=== PATIENT | female | born 1950 | race Caucasian/White ===

== ENCOUNTER 2020-03-02 17:22 | Emergency (ER) | payer MEDICARE, OTHER, SELFPAY ==
[2020-03-02 17:40] VITALS: BP 119/56; PULSE 86; RESP 16; TEMP 36.8; O2SAT 97
--- NOTE | 2020-03-02 17:53 | ED.UPPEXIN ---
HPI - Extremity Injury (Upper) General Chief Complaint: Extremity Injury, Upper Stated Complaint: swollen left hand Time Seen by Provider: 03/02/20 17:44 Source: patient and RN notes reviewed Mode of arrival: ambulatory Limitations: no limitations History of Present Illness HPI narrative: Patient presents today complaining of edema and pain to her left hand as well as pain to her right hand x4 days. Pain is primarily in the fingers and wrist. Patient has history of rheumatoid arthritis, lymphedema in the left arm. She has been applying ice, taking Tylenol and [place] without relief. 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 Denies numbness or tingling in the hands, fingers, or arms. Related Data Allergies Allergy/AdvReac Type Severity Reaction Status Date / Time No Known Allergies Allergy Verified 03/02/20 17:46 Review of Systems Review of Systems: Narrative: CONSTITUTIONAL: Denies body aches, fever, chills, or sweats. EYES: Denies visual changes, redness, or discharge. ENT: Denies rhinorrhea, congestion, sore throat, or otalgia. CARDIOVASCULAR: Denies chest pain, palpitations, or edema. RESPIRATORY: Denies cough or dyspnea. GASTROINTESTINAL: Denies abdominal pain, nausea, vomiting, or diarrhea. GENITOURINARY: Denies dysuria or hematuria. SKIN: Denies rash, itching, or wounds. MUSCULOSKELETAL: Denies back pain. + In the right hand, pain and edema to left hand NEUROLOGIC: Denies headache, numbness, tingling, or weakness. PSYCH: Denies depression or anxiety. [facility] Past Medical History Medical History (Updated 03/02/20 @ 18:00 by Falguni Richards, [facility], ) Bipolar disorder Bladder spasms Dry eye Hypercholesterolemia Hypertension Hypothyroidism Lymphedema Rheumatoid arthritis Social History Social History Gender identity (if verbalized by the patient): Female Comments At time of signature, I have reviewed and agree with nursing past medical, surgical, social and family history unless otherwise noted. Please see nursing chart for further information. There is no relevant family history pertinent to the presenting complaint Exam Narrative: Exam Narrative: GENERAL: Well-appearing, well-nourished, and in no acute distress. HEAD: Normocephalic, atraumatic. EYES: EOMI. No redness or drainage. Conjunctivae normal. ENT: Mucous membranes pink and moist. NECK: Normal AROM. CHEST: No respiratory distress. EXTREMITIES: Right hand: tenderness to fingers 2-5 with scant edema and erythema to dorsum of hand. Left hand: 2+ pitting edema to hand with some mild edema. Tenderness to fingers 2-5. Sensation intact. Capillary refill normal. Radial pulses normal. Full AROM of both wrist and all fingers. SKIN: Warm, dry, no rash. Capillary refill normal. Normal skin turgor. NEURO: No focal deficits. Alert and oriented x3. Gait steady. PSYCH: Normal affect. No signs of depression or anxiety. Course Vital Signs Vital signs: Vital Signs Temperature 98.3 F 03/02/20 17:40 Pulse Rate 86 03/02/20 17:40 Respiratory Rate 16 03/02/20 17:40 Blood Pressure 119/56 L 03/02/20 17:40 Pulse Oximetry 97 03/02/20 17:40 Temperature 98.3 F 03/02/20 17:40 Pulse Rate 86 03/02/20 17:40 Respiratory Rate 16 03/02/20 17:40 Blood Pressure 119/56 L 03/02/20 17:40 Pulse Oximetry 97 03/02/20 17:40 Reviewed MDM - Extremity Injury (Upper) Differential Diagnosis Differential diagnosis: Likely other (peripheral edema, gout, RA flare, osteoarthritis, lymphedema.) Critical Care Time Critical Care Time Critical Care Time: No Discharge Plan Discharge Clinical Impression: Rheumatoid arthritis flare, Edema of hand Patient Disposition: Home, Self-Care Condition: Stable Instructions: Rheumatoid Arthritis (ED) Additional Instructions: Your symptoms are likely due to a flare of your rheumatoid arthritis. Please continue all of your home meds. Please take the prednisone as directed. F
== END 2020-03-02 18:00 | disposition home or self-care (01) ==
PROVIDERS: Emergency Provider Nurse Practitioner; PCP Internal Medicine Rheumatology
DX: M06.9 Rheumatoid arthritis, unspecified (principal); R60.9 Edema, unspecified; F31.9 Bipolar disorder, unspecified; N32.89 Other specified disorders of bladder; E03.9 Hypothyroidism, unspecified; I10 Essential (primary) hypertension; E78.00 Pure hypercholesterolemia, unspecified
CPT/HCPCS: 99203; G0463

== ENCOUNTER 2020-07-08 11:41 | Emergency (ER) | payer MEDICARE, OTHER, SELFPAY ==
--- NOTE | ~2020-07-08 | XR_ITS ---
XR finger 5th RT min 2V DATE: 07/08/2020 12:33 INDICATION: Fall. Fifth digit bruising. History of rheumatoid arthritis. TECHNIQUE: 4 views COMPARISON: None FINDINGS: The examination is limited due to nonstandard positioning, with flexion of the digits on al l views, resulting in superimposition of the phalanges on all but the lateral view. There is also ove rpenetration, particularly on the lateral view. There is a very subtle virtually nondisplaced linear intra-articular oblique fracture through the bas e, metaphysis and proximal shaft of the proximal phalanx. No other apparent fracture or dislocation. There is diffuse osteopenia. IMPRESSION: Linear oblique nondisplaced intra-articular fracture of the base, metaphysis and proximal shaft of the proximal phalanx Diffuse osteopenia Reviewed, dictated and finalized at location A. IMPRESSION: Linear oblique nondisplaced intra-articular fracture of the base, m etaphysis and proximal shaft of the proximal phalanx Diffuse osteopenia
--- NOTE | ~2020-07-08 | XR_ITS ---
XR hand RT min 3V DATE: 07/08/2020 12:09 INDICATION: Fall. Bruising to the fifth digit TECHNIQUE: 3 views COMPARISON: None FINDINGS: There is nonstandard positioning with some flexion of the digits on all views, with superim position of phalanges, resulting in incomplete evaluation. If there is concern for digit fracture, re commend dedicated radiographic examination of that digit, including AP, lateral and oblique views, wi th standard positioning. Diffuse osteopenia. There is narrowing at the radiocarpal joint. No chondrocalcinosis or erosive change is evident. No ap parent fracture or dislocation is detected. IMPRESSION: Narrowing at the radiocarpal joint Diffuse osteopenia No apparent fracture or dislocation; limited evaluation Reviewed, dictated and finalized at location A.
[2020-07-08 11:57] VITALS: BP 148/86; PULSE 73; RESP 18; TEMP 36.7; O2SAT 98
--- NOTE | 2020-07-08 12:15 | ED.UPPEXIN ---
HPI - Extremity Injury (Upper) General Chief Complaint: Extremity Injury, Upper Stated Complaint: right hand injury fell Time Seen by Provider: 07/08/20 12:15 Source: patient and RN notes reviewed Mode of arrival: ambulatory Limitations: no limitations History of Present Illness HPI narrative: 70-year-old female who presents to [facility] care with complaints of tripping over a rug at home and experiencing a fall morning at 0300. Patient states she has had bilateral total knee replacements and has a history of rheumatoid arthritis, had to call EMS for assistance getting up off of floor. Patient has noted pain to right 5th finger with bruising and swelling, has some contracture distal aspect of that finger from her rheumatoid arthritis. Patient also has bruising to the right dorsal hand and also to right upper lateral arm and right hip region with no acute discomfort verbalized to these sites. MD complaint: injury to: right, hand and finger (5th finger) Onset (ago): hour(s) (33 hours ago) Other Extremity Injury: Right: fingers (right 5th finger with bruising and swelling), hand (bruising to right dorsal hand) and arm (upper right arm bruising) Other injuries: RLE (right hip bruise) Handedness: right Place: home Severity: moderate Exacerbating factors: movement of extremity Context: fall Associated symptoms: denies other symptoms Related Data Home Medications Medication Instructions Recorded Confirmed atorvastatin [Lipitor] 20 mg PO DAILY 03/02/20 07/08/20 citalopram [Celexa] 20 mg PO DAILY 03/02/20 07/08/20 cyclosporine [Restasis] 1 drp OPHTHALMIC (EYE) Q12H 03/02/20 07/08/20 diclofenac sodium 75 mg PO BID 03/02/20 07/08/20 divalproex [Depakote ER] 500 mg PO BID 03/02/20 07/08/20 folic acid 1 mg PO DAILY 03/02/20 07/08/20 levothyroxine 100 mcg PO DAILY 03/02/20 07/08/20 lisinopril [Zestril] 2.5 mg PO DAILY 03/02/20 07/08/20 methotrexate sodium 17.5 mg PO WEEKLY 03/02/20 07/08/20 oxybutynin chloride 5 mg PO BID 03/02/20 07/08/20 risperidone [Risperdal] 0.5 mg PO DAILY 03/02/20 07/08/20 torsemide 5 mg PO DAILY 03/02/20 07/08/20 methotrexate sodium 2.5 mg PO DIRECTED 07/08/20 07/08/20 propranolol 60 mg PO DAILY 07/08/20 07/08/20 Allergies Allergy/AdvReac Type Severity Reaction Status Date / Time ciprofloxacin Allergy Mild UPSET Verified 07/08/20 11:52 STOMACH amoxicillin Allergy Unknown Dyspnea / Verified 07/08/20 11:52 SOB Review of Systems Review of Systems: Narrative: CONSTITUTIONAL: Denies fever, chills, or sweats. EYES: Denies visual changes, redness, or discharge. ENT: Denies rhinorrhea, congestion, sore throat, or otalgia. CARDIOVASCULAR: Denies chest pain, palpitations, or edema. RESPIRATORY: Denies cough or dyspnea. GASTROINTESTINAL: Denies abdominal pain, nausea, vomiting, or diarrhea. GENITOURINARY: Denies dysuria or hematuria. SKIN: Denies rash or itching. MUSCULOSKELETAL: Denies back pain, positive for acute pain to the proximal region of her right 5th finger with noted swelling and bruising, some aching to soft tissue right upper arm and right hip area with no acute pain at these areas. NEUROLOGIC: Denies headache, numbness, or weakness. PSYCHIATRIC: positive history anxiety or depression. All systems reviewed & are unremarkable except as noted in HPI and below PMFSH Past Medical History Medical History (Updated 07/09/20 @ 00:00 by Background Daemon) Bipolar disorder Bladder spasms Dry eye Hypercholesterolemia Hypertension Hypothyroidism Lymphedema Rheumatoid arthritis Surgical History Surgical History H/O: hysterectomy History of bilateral knee replacement History of carpal tunnel release History of total left hip replacement Family History Family History Father Heart disease Social History Social History (Updated 07/11/20 @ 14:16 by Eliane Neff NP) Smoking status
== END 2020-07-08 13:20 | disposition home or self-care (01) ==
PROVIDERS: Emergency Provider Registered Nurse
DX: S62.646A Nondisplaced fracture of proximal phalanx of right little finger, initial encounter for closed fracture (principal); W18.09XA Striking against other object with subsequent fall, initial encounter; M06.9 Rheumatoid arthritis, unspecified; Z87.891 Personal history of nicotine dependence; Z96.653 Presence of artificial knee joint, bilateral; Z96.642 Presence of left artificial hip joint; E78.00 Pure hypercholesterolemia, unspecified; I10 Essential (primary) hypertension; E03.9 Hypothyroidism, unspecified; F31.9 Bipolar disorder, unspecified
CPT/HCPCS: 29130; 73130; 73140; 99214; G0463

== ENCOUNTER 2022-03-16 14:35 | Emergency (ER) | payer MEDICARE, OTHER, SELFPAY ==
[2022-03-16 14:48] VITALS: BP 140/71; PULSE 68; RESP 18; TEMP 36.5; O2SAT 98
--- NOTE | 2022-03-16 15:02 | ED.URI ---
HPI - URI/Sore Throat General Chief Complaint: Upper Respiratory Infection Stated Complaint: Stuffy Nose,Chills,Body Aches Time Seen by Provider: 03/16/22 15:02 Source: patient, RN notes reviewed and old records reviewed Mode of arrival: ambulatory Limitations: no limitations History of Present Illness HPI Narrative: 71-year-old female presents to express care with complaints of 1 day history of chills, body aches, 100 ?F temperature with stuffy nose and dry cough and fatigue. Patient had no complaints of nausea and vomiting or diarrhea states her appetite is fair and is drinking fluids well. Patient denies any shortness of breath no tachypnea noted lungs are clear to auscultation with SAO2 98% on room air. ptient reports that she has had a dry cough and she has a stuffy nose and some fatigue Patient reports that she got a flu shot in October and she had Moderna Covid Booster about 1 month ago. MD elicited complaint: fever, cough and other (chills,body aches,stuffy nose) Pertinent past history: immunosuppression (Rheumatoid arthritis) Onset (ago): day(s) Consistency: constant Description of mucous: clear Able to tolerate fluids by mouth: Yes Exacerbating factors: exertion Related Data Home Medications Medication Instructions Recorded Confirmed atorvastatin [Lipitor] 40 mg PO DAILY 03/02/20 03/16/22 citalopram [Celexa] 20 mg PO DAILY 03/02/20 03/16/22 cyclosporine [Restasis] 1 drp OPHTHALMIC (EYE) Q12H 03/02/20 03/16/22 diclofenac sodium 75 mg PO BID 03/02/20 03/16/22 divalproex [Depakote ER] 500 mg PO BID 03/02/20 03/16/22 folic acid 1 mg PO DAILY 03/02/20 03/16/22 levothyroxine 100 mcg PO DAILY 03/02/20 03/16/22 lisinopril [Zestril] 2.5 mg PO DAILY 03/02/20 03/16/22 methotrexate sodium 17.5 mg PO WEEKLY 03/02/20 03/16/22 oxybutynin chloride 5 mg PO BID 03/02/20 03/16/22 risperidone [Risperdal] 0.5 mg PO DAILY 03/02/20 03/16/22 torsemide 5 mg PO DAILY 03/02/20 03/16/22 latanoprost 1 drp EACH EYE HS 03/16/22 03/16/22 Allergies Allergy/AdvReac Type Severity Reaction Status Date / Time amoxicillin Allergy Intermediate Dyspnea / Verified 03/16/22 14:39 SOB ciprofloxacin Allergy Mild UPSET Verified 03/16/22 14:39 STOMACH Review of Systems Review of Systems: CONSTITUTIONAL: Positive for fever up to 100F yesterday, chills, or sweats. EYES: Denies visual changes, redness, or discharge. ENT: Denies rhinorrhea, congestion, sore throat, or otalgia. CARDIOVASCULAR: Denies chest pain, palpitations, or edema. RESPIRATORY: Positive for cough denies any acute dyspnea. GASTROINTESTINAL: Denies abdominal pain, nausea, vomiting, or diarrhea. GENITOURINARY: Denies dysuria or hematuria. SKIN: Denies rash or itching. MUSCULOSKELETAL: Denies back pain, joint pain, body aches NEUROLOGIC: Positive for headache, numbness, or weakness. PSYCHIATRIC: Positive for anxiety or depression. All systems reviewed & are unremarkable except as noted in HPI and below PMFSH Past Medical History Medical History (Updated 03/16/22 @ 15:27 by Eliane Neff NP) Bipolar disorder Bladder spasms Dry eye Hypercholesterolemia Hypertension Hypothyroidism Lymphedema Rheumatoid arthritis Surgical History Surgical History H/O: hysterectomy History of bilateral knee replacement History of carpal tunnel release History of total left hip replacement Family History Family History Father Heart disease Social History Social History (Updated 07/11/20 @ 14:16 by Eliane Neff NP) Smoking status: Former smoker Smoking end date: 10/28/91 Gender identity (if verbalized by the patient): Female Exam Narrative: GENERAL: Well-appearing, well-nourished, and in no acute distress. HEAD: Normocephalic, atraumatic. EYES: PERRLA and EOMI. ENT: Nares red with clear rhinorrhea no epistaxis. Mucous membranes moist. TMs normal with good l
== END 2022-03-16 15:30 | disposition home or self-care (01) ==
PROVIDERS: Emergency Provider Registered Nurse; PCP Internal Medicine
DX: U07.1 COVID-19 (principal); M06.9 Rheumatoid arthritis, unspecified; E78.00 Pure hypercholesterolemia, unspecified; I10 Essential (primary) hypertension; E03.9 Hypothyroidism, unspecified; Z96.653 Presence of artificial knee joint, bilateral; Z96.641 Presence of right artificial hip joint; Z87.891 Personal history of nicotine dependence; F31.9 Bipolar disorder, unspecified
CPT/HCPCS: 87426; 87804; 99213; C9803; G0463

== ENCOUNTER 2022-03-31 18:11 | Emergency (ER) | payer MEDICARE, OTHER, SELFPAY ==
--- NOTE | ~2022-03-31 | CT_ITS ---
EXAMINATION: CT lumbar spine wo con DATE: 03/31/2022 20:40 INDICATION: FALL. LOWER BACK PAIN. . TECHNIQUE: Computed tomography (CT) of the thoracic spine was performed without intravenous contrast. The dose-length product was 1203.59 mGy-cm. COMPARISON: None. FINDINGS: The last fully formed disc space will be designated L5-S1. There are 6 nonrib-bearing lumba r-type vertebral bodies which may be due to hypoplastic ribs at T12 or the sixth lumbar vertebral bod y. Pedicles are intact. Partial sacralization on the right at L5, with pseudarthrosis. Normal vertebr al body alignment. Vertebral body heights preserved. Multilevel severe degenerative disc disease. Mul tilevel severe bilateral neural foraminal narrowing. Severe central canal narrowing at L3-4. Multilev el facet arthropathy. IMPRESSION: 1. No acute fracture or traumatic malalignment in the lumbar spine Reviewed, dictated and finalized at location K.
--- NOTE | ~2022-03-31 | CT_ITS ---
EXAMINATION: CT cervical spine wo con DATE: 03/31/2022 20:40 INDICATION: FALL. POSTERIOR NECK PAIN. TECHNIQUE: Computed tomography (CT) of the cervical spine was performed without intravenous contrast. Automated exposure control and iterative reconstruction technique were employed. The dose-length pro duct was 435.16 mGy-cm. COMPARISON: None FINDINGS: Counting reference: Craniocervical, junction. There are seven cervical type vertebral bodies. Anatomic Variants: None.. Vertebral Body Alignment: Intact. Reversal of the normal cervical lordosis. Craniocervical junction: Moderate degenerative change. Alignment intact. Osseous structures/fracture: No evidence of a lytic or blastic process in the visualized spine. N o evidence of acute fracture. Small left and trace right mastoid effusions without evidence of tempor al bone fracture. Cervical soft tissues: The paraspinal soft tissues planes are maintained. Degenerative changes: No significant degenerative changes. IMPRESSION: No acute fracture or traumatic malalignment in the cervical spine. Reviewed, dictated and finalized at location K.
--- NOTE | ~2022-03-31 | XR_ITS ---
EXAM: XR hip RT 2V w AP pelvis DATE: 03/31/2022 20:25 HISTORY: right hip pain, fall . COMPARISON: None available. FINDINGS: Decreased mineralization. No fracture or dislocation. No lytic or blastic lesion. Degenera tive lumbar SI joint and right hip changes. Right-sided L5 sacralization with pseudoarthrosis. Superi or migration of the femoral head arthroplasty component, with surrounding heterotopic bone. No erosio n or periosteal change. Soft tissues within normal limits. IMPRESSION: No acute fracture in the pelvis or right hip. Significant liner wear in the left hip arthroplasty. Reviewed, dictated and finalized at location K.
--- NOTE | ~2022-03-31 | CT_ITS ---
EXAMINATION: CT brain wo con DATE: 03/31/2022 20:39 INDICATION: FALL. HIT BACK OF HEAD. POSTERIOR HEAD PAIN. . TECHNIQUE: Computed tomography (CT) of the head was performed without intravenous contrast. The mA wa s adjusted according to patient size. Iterative reconstruction technique was employed. The dose-lengt h product was 605.33 mGy-cm. COMPARISON: None FINDINGS: No acute intracranial hemorrhage or extra-axial fluid collection. No hydrocephalus, mass, or herniation. No acute ischemic infarct. Unremarkable dural venous sinus attenuation. No acute osseous abnormality. Left mastoid effusion, without evidence of temporal bone fracture. Aerated secretions in the sphenoid sinus, otherwise the aerated spaces are clear. Mild atrophy and chronic white matter change. Mild atherosclerotic calcifications. Bilateral lens rep lacements. IMPRESSION: No acute intracranial process. Reviewed, dictated and finalized at location K.
--- NOTE | 2022-03-31 18:12 | PC.NURSE ---
, neighbor . can call for a ride.
[2022-03-31 18:14] VITALS: BP 137/108; PULSE 71; RESP 18; TEMP 36.2; O2SAT 96
[2022-03-31 19:50] VITALS: BP 130/109; PULSE 70; RESP 20; TEMP 36.4; O2SAT 100
--- NOTE | 2022-03-31 20:16 | ED.FALL ---
HPI - Fall General Chief Complaint: Fall Stated Complaint: fall, struck head Time Seen by Provider: 03/31/22 19:34 Source: patient Mode of arrival: ambulatory Limitations: no limitations History of Present Illness HPI Narrative: This is a 71 year old female that presents to the ER after a fall today with head injury. Reports she was walking up her front steps with her hands fall. She lost her balance and fell backwards and hit her head. She did not lose consciousness. Reports since she has had neck pain and low back pain. Also reports right hip pain. Denies prodromal symptoms, vision changes, vomiting, numbness, or weakness. Related Data Home Medications Medication Instructions Recorded Confirmed atorvastatin 20 mg tablet (Lipitor) 40 mg PO DAILY 03/02/20 03/16/22 citalopram 20 mg tablet (Celexa) 20 mg PO DAILY 03/02/20 03/16/22 cyclosporine 0.05 % eye drops in a 1 drp ophthalmic (eye) Q12H 03/02/20 03/16/22 dropperette (Restasis) diclofenac sodium 75 mg 75 mg PO BID 03/02/20 03/16/22 tablet,delayed release divalproex 250 mg tablet,extended 500 mg PO BID 03/02/20 03/16/22 release 24 hr (Depakote ER) folic acid 1 mg tablet 1 mg PO DAILY 03/02/20 03/16/22 levothyroxine 100 mcg tablet 100 mcg PO DAILY 03/02/20 03/16/22 lisinopril 2.5 mg tablet (Zestril) 2.5 mg PO DAILY 03/02/20 03/16/22 methotrexate sodium 2.5 mg tablet 17.5 mg PO WEEKLY 03/02/20 03/16/22 oxybutynin chloride 5 mg tablet 5 mg PO BID 03/02/20 03/16/22 risperidone 0.5 mg tablet 0.5 mg PO DAILY 03/02/20 03/16/22 (Risperdal) torsemide 10 mg tablet 5 mg PO DAILY 03/02/20 03/16/22 latanoprost 0.005 % eye drops 1 drp EACH EYE HS 03/16/22 03/16/22 Allergies Allergy/AdvReac Type Severity Reaction Status Date / Time amoxicillin Allergy Intermediate Dyspnea / Verified 03/31/22 19:50 SOB ciprofloxacin Allergy Mild UPSET Verified 03/31/22 19:50 STOMACH Review of Systems Review of Systems: CONSTITUTIONAL: Denies fever EYES: Denies visual changes GASTROINTESTINAL: Denies vomiting MUSCULOSKELETAL: Reports back pain, joint pain, and myalgia. NEUROLOGIC: Denies numbness, or weakness. All systems reviewed & are unremarkable except as noted in HPI and below PMFSH Past Medical History Medical History (Updated 03/31/22 @ 21:47 by Sherrie Razo PA-C) Bipolar disorder Bladder spasms Dry eye Hypercholesterolemia Hypertension Hypothyroidism Lymphedema Rheumatoid arthritis Surgical History Surgical History H/O: hysterectomy History of bilateral knee replacement History of carpal tunnel release History of total left hip replacement Family History Family History Father Heart disease Social History Social History (Updated 07/11/20 @ 14:16 by Eliane Neff NP) Smoking status: Former smoker Smoking end date: 10/28/91 Gender identity (if verbalized by the patient): Female Exam Narrative: GENERAL: Well-appearing, well-nourished, and in no acute distress. HEAD: Normocephalic, atraumatic. EYES: PERRLA and EOMI. ENT: Nares clear, no rhinorrhea or epistaxis. Mucous membranes moist. Oropharynx without tonsillar hypertrophy exudate or other lesions. Bilateral TMs pearly mosley non-bulging NECK: Supple. No adenopathy or masses. Tender to palpation of midline cervical spine CHEST: Clear to auscultation. No respiratory distress. No wheezes rales or rhonchi HEART: Regular rate and rhythm. No murmur heard. Normal peripheral pulses. BACK: No midline thoracic spine tenderness. Tender to palpation of midline lumbar spine EXTREMITIES: Normal range of motion. No edema or obvious deformity SKIN: Warm, dry, no rash. NEURO: No focal deficits. Alert and oriented x3. Cranial nerves II through XII grossly intact. Normal gait PSYCH: Normal mood and affect Course Vital Signs Vital signs: Vital Signs Temperature 97.2 F L
--- NOTE | 2022-03-31 20:23 | PC.NURSE ---
Patient taken to radiology via w/c.
[2022-03-31 21:58] VITALS: BP 145/77; PULSE 71; RESP 18; TEMP 36.6; O2SAT 96
== END 2022-03-31 22:00 | disposition home or self-care (01) ==
PROVIDERS: Emergency Provider Emergency Medicine
DX: S09.90XA Unspecified injury of head, initial encounter (principal); S19.9XXA Unspecified injury of neck, initial encounter; S39.92XA Unspecified injury of lower back, initial encounter; S79.911A Unspecified injury of right hip, initial encounter; N32.89 Other specified disorders of bladder; E78.00 Pure hypercholesterolemia, unspecified; I10 Essential (primary) hypertension; E03.9 Hypothyroidism, unspecified; M06.9 Rheumatoid arthritis, unspecified; Z96.642 Presence of left artificial hip joint; Z96.653 Presence of artificial knee joint, bilateral; Z87.891 Personal history of nicotine dependence; W10.9XXA Fall (on) (from) unspecified stairs and steps, initial encounter
CPT/HCPCS: 70450; 72125; 72131; 73502; 99284

== ENCOUNTER 2024-10-24 14:35 | Emergency (ER) | payer MEDICARE, OTHER, SELFPAY ==
[2024-10-24 15:10] VITALS: BP 133/97; PULSE 79; RESP 18; TEMP 36.9; O2SAT 95
--- NOTE | 2024-10-24 15:35 | ED_ITS ---
HPI - URI/Sore Throat General Chief Complaint: Upper Respiratory Infection Stated Complaint: Flu like symptoms Time Seen by Provider: 10/24/24 15:35 Source: patient, RN notes reviewed and old records reviewed Mode of arrival: ambulatory Limitations: no limitations History of Present Illness HPI Narrative: 74-year-old female presents to [facility] with complaints of body aches, sore throat, left ear discomfort, low-grade fevers 100.4. States that she has taken Tylenol. Patient states symptoms started on , 2 days ago Related Data Home Medications ?Medication ?Instructions ?Recorded ?Confirmed ?Last Taken ?Type atorvastatin 20 mg tablet (Lipitor) 40 mg PO DAILY 03/02/20 03/16/22 Unknown History citalopram 20 mg tablet (Celexa) 20 mg PO DAILY 03/02/20 03/16/22 Unknown History cyclosporine 0.05 % eye drops in a 1 drp ophthalmic (eye) Q12H 03/02/20 03/16/22 Unknown History dropperette (Restasis) diclofenac sodium 75 mg 75 mg PO BID 03/02/20 03/16/22 Unknown History tablet,delayed release divalproex 250 mg tablet,extended 500 mg PO BID 03/02/20 03/16/22 Unknown History release 24 hr (Depakote ER) folic acid 1 mg tablet 1 mg PO DAILY 03/02/20 03/16/22 Unknown History levothyroxine 100 mcg tablet 100 mcg PO DAILY 03/02/20 03/16/22 Unknown History lisinopril 2.5 mg tablet (Zestril) 2.5 mg PO DAILY 03/02/20 03/16/22 Unknown History methotrexate sodium 2.5 mg tablet 17.5 mg PO WEEKLY 03/02/20 03/16/22 Unknown History oxybutynin chloride 5 mg tablet 5 mg PO BID 03/02/20 03/16/22 Unknown History risperidone 0.5 mg tablet 0.5 mg PO DAILY 03/02/20 03/16/22 Unknown History (Risperdal) torsemide 10 mg tablet 5 mg PO DAILY 03/02/20 03/16/22 Unknown History latanoprost 0.005 % eye drops 1 drp EACH EYE HS 03/16/22 03/16/22 Unknown History Allergies Allergy/AdvReac Type Severity Reaction Status Date / Time amoxicillin Allergy Intermediate Dyspnea / Verified 10/24/24 15:14 SOB ciprofloxacin AdvReac Intermediate Gastrointestinal Verified 10/24/24 15:14 Upset Review of Systems Review of Systems: All systems reviewed & are unremarkable except as noted in HPI and below Constitutional: Constitutional: Reports as per HPI, Reports body ache(s), Reports chills, Reports fatigue and Reports fever(s) ENT: Reports as per HPI and Reports sore throat Cardiovascular: Cardiovascular: Reports no additional cardiovascular complaints, Denies chest pain and Denies dyspnea Respiratory: Respiratory: Reports no additional respiratory complaints, Denies chest congestion, Denies cough and Denies dyspnea Musculoskeletal: Musculoskeletal: Reports no additional musculoskeletal complaints Integumentary/Breasts: Skin/Breast: Reports system reviewed and no additional complaints, except as docu PMFSH Past Medical History Medical History Dry eye Bladder spasms Hypertension Hypercholesterolemia Bipolar disorder Lymphedema Hypothyroidism Rheumatoid arthritis Surgical History Surgical History H/O: hysterectomy History of bilateral knee replacement History of total left hip replacement History of carpal tunnel release Family History Family History Father Heart disease Social History Social History Smoking status: Former smoker Smoking end date: 10/28/91 Living arrangements: alone Occupation/Education: retired Gender identity (if verbalized by the patient): Female Comments At the time of my signature, I reviewed and agree with the nursing past medical, surgical, social, and family history. There is no relevant family history pertinent to the patient complaint. Exam Const: General: cooperative, no acute distress, well developed, alert, uncomfortable and well nourished Nutritional Appearance: well nourished Orientation/consciousness: patient oriented x3 Limitations: no limitations HENMT: Head: normal to inspection Ears: hearing grossly normal bilaterally, external ears normal, TM's normal bilaterally, EAC's normal, mastoids normal and no periauricular adenopathy Mouth: Yes Normal oral and palatal mucosa present, Yes lip normal, Yes tongue normal and Yes moist mucous membranes Throat: posterior oropharynx normal, uvula midline and no uvular edema Eyes: General: appearance normal, both eyes and all related structures Alignment and Position: alignment normal Neck: Neck: normal visual inspection, full ROM, no lymphadenopathy and no meningeal signs Chest: Chest palpation & inspection: normal inspection of the chest Resp: Effort & Inspection: normal respiratory effort and able to speak in complete sentences Auscultation: clear to auscultation bilaterally, no crackles, no rales, no rhonchi and no wheezes Cardio: Rate: regular rate Skin: General skin exam: normal color and no rashes or lesions noted Neuro: General: patient oriented x3, gait normal, moves all extremities and no meningeal signs Cognition (Neuro): normal cognition Speech: normal speech Gait exam (Neuro): Normal gait present Extrem: General: normal to inspection, full ROM, capillary refill normal and normal gait Psych: Appearance: grossly normal and well kempt Mental Status: mental status grossly normal Speech and movement: Normal speech and movement present and Clear speech present Affect: normal affect Attitude: cooperative Course Course Level of Care: Express Care Visit Vital Signs Vital signs: Vital Signs Temperature 98.5 F 10/24/24 15:10 Pulse Rate 79 10/24/24 15:10 Respiratory Rate 18 10/24/24 15:10 Blood Pressure 133/97 H 10/24/24 15:10 Pulse Oximetry 95 10/24/24 15:10 Oxygen Delivery Room Air 10/24/24 15:10 Temperature 98.5 F 10/24/24 15:10 Pulse Rate 79 10/24/24 15:10 Respiratory Rate 18 10/24/24 15:10 Blood Pressure 133/97 H 10/24/24 15:10 Pulse Oximetry 95 10/24/24 15:10 Oxygen Delivery Room Air 10/24/24 15:10 Reviewed MDM - URI/Sore Throat MDM Narrative Medical decision making narrative: Patient sitting in exam room. Nontoxic, vitals stable. Patient presents for URI symptoms x2 days Patient COVID positive Patient appropriate for outpatient treatment and follow-up Discharge instructions reviewed with patient, as well as provided in writing per nursing staff. The instructions also include specific and strict return/GO TO THE ER as well as f/u information. All questions have been answered, and the patient deny any further questions with discharge and discharge plan. Some parts of this dictation were generated by voice recognition software and may contain typographical and/or grammatical inaccuracies. Differential Diagnosis Differential diagnosis: Likely upper respiratory infection, otitis media, sinusitis, viral infection, bronchitis and influenza Lab Data Labs: Lab Results 10/24/24 Range/Units 15:35 POC Influenza A Ag Negative (Negative) POC Influenza B Ag Negative (Negative) POC SARS CoV-2 Ag Positive (Negative) Reviewed Critical Care Time Critical Care Time Critical Care Time: No Discharge Plan Discharge Clinical Impression: COVID-19 Patient Disposition: Home, Self-Care Condition: Stable Instructions: Antibiotic Form, COVID-19 (Coronavirus Disease 2019) (ED), COVID- 19 and Chronic Health Conditions (ED) Additional Instructions: Your rapid COVID test your in clinic was positive Your rapid flu test was negative Your symptoms are due to a viral illness, which is not treated with antibiotics. Typically viral infections last 7-10 days, can linger for couple of weeks. It is very important to treat your symptoms. Drink plenty of water, Gatorade, Pedialyte, ice pops or Jell-O. Use your albuterol inhaler as needed for shortness of breath -Alternate Tylenol and Motrin per package directions for fever or pain. You can alternate every 4 hours -Antihistamine medication such Zyrtec/Claritin/Florecita during the day can help improve symptoms. -doing daily nasal irrigations can help relieve pressure your sinuses. Things like a Neti pot -Use Flonase twice a day for 5 days then daily to help reduce the inflammation and dry up your sinuses. -You can also use Mucinex. Be sure to drink plenty of water with this medication at least 8 ounces with every dose and it is important to drink 8 to 10 glasses of water per day. Water is a natural decongestant -Eat and drink things that are easy to swallow, like tea or soup, or popsicles. -Oral rinses such as: Salt water gargles and/or may use topical anesthetic (eg. Chloraseptic spray) or lozenges to relieve dryness or throat pain). -Frequent hand washing or hand mysql developer is one of the best ways to prevent spread of infection. -Using a vaporizer or humidifier at night will also help thin secretions and help with coughing up phlegm. -Follow up with primary care provider in 7-10 days if condition is not improving - For new or worsening symptoms go directly to the nearest ER Patient Language: Polish Prescriptions: No Action latanoprost 0.005 % drops 1 drp EACH EYE HS albuterol sulfate 90 mcg/actuation HFA aerosol inhaler 2 puff inhalation QID PRN (Reason: shortness of breath or wheezing) Qty: 6.7 0RF Rx Instructions: as needed for shortness of breath or acute cough atorvastatin [Lipitor] 20 mg Tablet 40 mg PO DAILY torsemide 10 mg Tablet 5 mg PO DAILY levothyroxine 100 mcg Tablet 100 mcg PO DAILY citalopram [Celexa] 20 mg Tablet 20 mg PO DAILY methotrexate sodium 2.5 mg Tablet 17.5 mg PO WEEKLY diclofenac sodium 75 mg Tablet,Delayed Release (Dr/Ec) 75 mg PO BID folic acid 1 mg Tablet 1 mg PO DAILY oxybutynin chloride 5 mg Tablet 5 mg PO BID lisinopril [Zestril] 2.5 mg Tablet 2.5 mg PO DAILY risperidone [Risperdal] 0.5 mg Tablet 0.5 mg PO DAILY divalproex [Depakote ER] 250 mg Tablet Extended Release 24 Hr 500 mg PO BID cyclosporine [Restasis] 0.05 % Dropperette 1 drp OPHTHALMIC (EYE) Q12H Follow-up/Referrals: UNKNOWN,DOCTOR [Primary Care Provider] - Stand Alone Forms: Work/School Release IP Time of Disposition: 15:42
[2024-10-24 15:37] LABS: EDCOVIDSCREEN Positive (Negative); EDINFLUASCREEN Negative (Negative); EDINFLUBSCREEN Negative (Negative)
--- OUTSIDE RECORDS SUMMARY | 2024-11-01 00:01 | XMS_ITS ---
Author Organization [facility] j carlos Address [address] [place] [address] Care Team Providers Care Pharmacy Technician Per Diem Name Role Phone Yinka Jackson Primary Care Provider [phone] Michael Barr [phone] Manuel TURNER, Yinka Celestin Unavailable Medications Medication SIG (Take, Route, Frequency, Duration) Notes Start Date End Date Status Atorvastatin Calcium 40 MG 1 tablet Oral ly Once a day for 90 days Active Encounters Encounter Location Date Provider Diagnosis [facility] [address] [place] [address] 10/22/2024 Yinka Jackson Plan Of Treatment Medication Medication Name Sig Start Date Stop Date Notes Atorvastatin Calcium 40 MG 1 tablet Oral ly Once a day for 90 days Next Appt Details Provider Name:Michael koenig, 01/15/2025 11:00:00 AM, [address], [address], [place], [address], Provider Name:Yinka andino, 03/05/2025 11:30:00 AM, [address], [place], [address], Progress Notes * Esther CAMARILLO MDOB: 0 (74 yo F)Acc No.[id number]:10/22/2024 Patient:?Esther CAMARILLO :1950???Age:74 Y???Sex:Female Address:[address] [place], [place] [address], [place], [facility] * Refills? Refill Atorvastatin Calcium Tablet, 40 MG, Orally, 90 Tablet, 1 tablet, Once a day, 90 days, Refills=1 * true * Date:? 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
--- OUTSIDE RECORDS SUMMARY | 2024-11-01 00:02 | XMS_ITS ---
Author Organization [facility] j carlos Address [address] [facility] [place] [address] Care Team Providers Care Pigment Pumper Name Role Phone Yinka Jackson Primary Care Provider Michael Barr Unavailable [phone] Yinka Jackson MD Unavailable Unavailable Allergies Allergen (clinical drug ingredient) Drug/Non Drug Allergy documented on EMR Reaction Allergy Type Onset Date Status Substance with penicillin structure and antibacterial mechanism of action (substance) Penicillins Unknown Drug Allergy 08/19/2017 Active REASON FOR VISIT AWV, *Medicare Annual Wellness Visit Subsiquent Medications Medication SIG (Take, Route, Frequency, Duration) Notes Start Date End Date Status Propranolol HCl ER 60 MG TAKE 1 CAPSULE BY MOUTH EVERY DAY for 90 Active Methotrexate Sodium 2.5 MG TAKE 7 TABLETS BY MOUTH EVERY WEEK Oral 02/11/2023 Active Austedo 9 mg Oral Not-Filemon ing Restasis 0.05 % instill 1 drop into affected eye(s) by ophthalmic route 2 times per day Ophthalmic 2 Active Ropinole 0.5 mg *Reorder from [employer] for eRx and Interaction Alerts* Not-Taking Latanoprost 0.005 % Ophthalmic Active Austedo 6 mg Oral Not-Filemon ing Depakote 500 MG take 2 tablets (1,000 mg) by oral route 2 times per day Oral 2 02/11/2023 Active Citalopram Hydrobromide 20 MG take 1 tablet (20 mg) by oral route once daily Oral 1 Active risperiDONE 1 MG take 1 tablet (1 mg) by oral route once daily Oral 1 02/11/2023 Active Levothyroxine Sodium 100 MCG 1 tablet Orally Once a day in the morning on an empty stomach for 30 days Active Vitamin D (Ergocalciferol) 1.25 MG (13666 UT) TAKE 1 CAPSULE BY MOUTH WEEKLY for 90 Active Lisinopril 5 MG TAKE 1 TABLET(5 MG) BY MOUTH EVERY DAY for 90 Active Torsemide 5 MG 1 tablet Orally Once a day for 90 days Active oxyBUTYnin Chloride ER 10 MG 1 tablet Orally Once a day for 30 days 09/05/2024 Active Folic Acid 1 MG TAKE 1 TABLET BY MOUTH EVERY DAY for 90 Active Diclofenac Sodium 75 MG TAKE 1 TABLET BY MOUTH TWICE DAILY for 90 Active Atorvastatin Calcium 40 MG TAKE 1 TABLET(40 MG) BY MOUTH EVERY DAY AT BEDTIME for 90 Active Problems Problem Type SNOMED Code ICD Code Onset Dates Problem Status W/U Status Risk Notes Problem [id number] OAB (overactive bladder) (N32.81) Active confirmed Vital Signs Temperature 97.4 degrees Fahrenheit 09/05/20 24 Blood pressure systolic 122 mm Hg 09/05/20 24 Blood pressure diastolic 70 mm Hg 024 Heart Rate 64 /min 09/05/2024 Height 65 in 09/05/2024 Weight 456.35 lbs 09/05/2024 BMI 75.93 kg/m2 09/05/2024 Oximetry 98 % 09/05/2024 Height-cm 165.1 cm 09/05/2024 Weight-kg 207 kg 09/05/2024 Encounters Encounter Location Date Provider Diagnosis [facility] [address] [facility] [address] [address] 09/05/2024 Yinka Jackson Other specified disorders of bone density and structure, 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 ; Hypothyroidism, unspecified E03.9 ; Bipolar disorder, unspecified F31.9 ; Gastro-esophageal reflux disease without esophagitis K21.9 ; Rheumatoid arthritis, unspecified M06.9 ; Essential (primary) hypertension I10 and OAB (overactive bladder) N32.81 Assessments Encounter Date Diagnosis (ICD Code) Assessment Notes Treatment Notes Treatment Clinical Notes Section Notes 09/05/2024 Other specified disorders of bone density and structure, unspecified site (ICD-10 - M85.80) 09/05/2024 Hypothyroidism, unspecified (ICD-10 - E03.9) 09/05/2024 Bipolar disorder, unspecified (ICD-10 - F31.9) 09/05/2024 Gastro-esophageal reflux disease without esophagitis (ICD-10 - K21.9) 09/05/2024 Rheumatoid arthritis, unspecified (ICD-10 - M06.9) 09/05/2024 Essential (primary) hypertension (ICD-10 - I10) 09/05/2024 OAB (overactive bladder) (ICD-10 - N32.81) Plan Of Treatment Medication Medication Name Sig Start Date Stop Date Notes oxyBUTYnin Chloride ER 10 MG 1 tablet Or ally Once a day for 30 days 09/05/2024 Next Appt Details Follow Up: 6 Months, Reason: Provider Name:Michael koenig, 01/15/2025 11:00:00 AM, [address], [place], [address], Provider Name:Yinka andino, 03/05/2025 11:30:00 AM, [address], [place], [address], Progress Notes * Esther CAMARILLO MDOB: 0 (74 yo F)Acc No.[id number]:09/05/2024 Progress Note Patient:?Esther CAMARILLO Provider:?Yinka Jackson MD :1950???Age:74 Y???Sex:Female D ate:09/05/2024 Address:[address] [place], [place] [id number] Subjective: * Chief Complaints: * ???AWV*Medicare Annual Welln ess Visit Subsiquent * HPI: ???Patient Care Team:?-?Dr. Cortney Parr.?Medicare AWV:?Health Status?How is your overall health??Good ?Emergency Room Visits?How many times in the last 6 months have you been to the emergency room??0 times ?Hospital Visits?How many time in the last 6 months have you been admitted to the hospital??0 times ?Home/Safety?Do you have any concerns regarding home safety??None ?Do you wear a seatbelt??Yes ?Diet?The patient describes their diet as:?Balanced ?Exercise?The patient currently exercises:?Never ?Activities of Daily Living?ADLs:?Able to preform all ADLs independently ?IADLS:?Use the telephone,Shop for groceries,Handle finances,Drive/Use Public Transportation,Make meals,Take medications ?Cognitive Screening?Do you or your family members have any concerns about your memory??No ?Depression Screening was performed?PHQ score 4 ?Bladdar Concerns?Bladder Concerns?Has occasional urinary incontinence ?Vision Screening?Vision Screening:?No current vision problems identified Glaucoma ?Hearing Screening?Hearing Screening:?Bilateral hearing deficit reported on screening Patient reports some hearing loss ?Opioid/Alcohol/Illicit Drugs Use?The patient is currently prescribed opioids??No ?Patient Care Team?Patient Care Team?Mold Cleaner: Psychiatrist ?Depression Screening?Depression Screening was Preformed. Screening was:?Negative 4 * Medical History:? * Surgical History:?Knee Repla cement , bilat; [id number] relacement, left; [id number], Date of Procedure: 08/17, 10/17; 2021-11-07 * Hospitalization/Major Diagno stic Procedure:? * Family History:?Maternal Gra ndmother: Grandmother (maternal): osteoarthritis .? 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 * Medications:?TakingVitamin D (Ergocalciferol) 1.25 MG (45256 UT) Capsule TAKE 1 CAPSULE BY MOUTH WEEKLY Lisinopril 5 MG Tablet TAKE 1 TABLET(5 MG) BY MOUTH EVERY DAY Levothyroxine Sodium 100 MCG Tablet 1 tablet Orally Once a day in the morning on an empty stomach Latanoprost 0.005 % Solution Ophthalmic risperiDONE 1 MG Tablet take 1 tablet (1 mg) by oral route once daily Oral 1 Depakote 500 MG Tablet Delayed Release take 2 tablets (1,000 mg) by oral route 2 times per day Oral 2 Citalopram Hydrobromide 20 MG Tablet take 1 tablet (20 mg) by oral route once daily Oral 1 Restasis 0.05 % Emulsion instill 1 drop into affected eye(s) by ophthalmic route 2 times per day Ophthalmic 2 Propranolol HCl ER 60 MG Capsule Extended Release 24 Hour TAKE 1 CAPSULE BY MOUTH EVERY DAY Methotrexate Sodium 2.5 MG Tablet TAKE 7 TABLETS BY MOUTH EVERY WEEK Oral Folic Acid 1 MG Tablet TAKE 1 TABLET BY MOUTH EVERY DAY Diclofenac Sodium 75 MG Tablet Delayed Release TAKE 1 TABLET BY MOUTH TWICE DAILY Atorvastatin Calcium 40 MG Tablet TAKE 1 TABLET(40 MG) BY MOUTH EVERY DAY AT BEDTIME Torsemide 5 MG Tablet 1 tablet Orally Once a day Taking Vitamin D (Ergocalciferol) 1.25 MG (38504 UT) Capsule TAKE 1 CAPSULE BY MOUTH WEEKLY Taking Lisinopril 5 MG Tablet TAKE 1 TABLET(5 MG) BY MOUTH EVERY DAY Taking Levothyroxine Sodium 100 MCG Tablet 1 tablet Orally Once a day in the morning on an empty stomach Taking Latanoprost 0.005 % Solution Ophthalmic Taking risperiDONE 1 MG Tablet take 1 tablet (1 mg) by oral route once daily Oral 1 Taking Depakote 500 MG Tablet Delayed Release take 2 tablets (1,000 mg) by oral route 2 times per day Oral 2 Taking Citalopram Hydrobromide 20 MG Tablet take 1 tablet (20 mg) by oral route once daily Oral 1 Taking Restasis 0.05 % Emulsion instill 1 drop into affected eye(s) by ophthalmic route 2 times per day Ophthalmic 2 Taking Propranolol HCl ER 60 MG Capsule Extended Release 24 Hour TAKE 1 CAPSULE BY MOUTH EVERY DAY Taking Methotrexate Sodium 2.5 MG Tablet TAKE 7 TABLETS BY MOUTH EVERY WEEK Oral Taking Folic Acid 1 MG Tablet TAKE 1 TABLET BY MOUTH EVERY DAY Taking Diclofenac Sodium 75 MG Tablet Delayed Release TAKE 1 TABLET BY MOUTH TWICE DAILY Taking Atorvastatin Calcium 40 MG Tablet TAKE 1 TABLET(40 MG) BY MOUTH EVERY DAY AT BEDTIME Taking Torsemide 5 MG Tablet 1 tablet Orally Once a day Not-TakingAustedo 6 mg Tablet Oral Ropinole 0.5 mg , Notes to Pharmacist: *Reorder from [employer] for eRx and Interaction Alerts*Austedo 9 mg Tablet Oral Medication List reviewed and reconciled with the patientNot-Taking Austedo 6 mg Tablet Oral Not-Taking Ropinole 0.5 mg , Notes to Pharmacist: *Reorder from [employer] for eRx and Interaction Alerts*Not-Taking Austedo 9 mg Tablet Oral Medication List reviewed and reconciled with the patient * Allergies:?Penicillins: Richard rgy - Onset Date 08/19/2017no[Allergies Verified] Objective: * Vitals:?BP:122/70mm Hg, HR:6 4/min, Temp:97.4F, Oxygen sat %:98%, Wt:456.35lbs, Wt-kkg, Ht:65in, Ht-cm: 165.1 cm, BMI:75.93Index, Body Surface Area: 3.08. 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 Plan: * Treatment: * Procedure Codes:?G0439 TALIAUA L WELLNESS VST; PPS SUBSQT [id number] ANNUAL DEPRESSION SCREENING 15 MIN * Preventive Medicine:? ??Preventive Wellness Plan:?Annual Wellness Visit?Schedule a wellness visit every 12 months with your primary care provider. STATUS:?Up To Date ?Date of Last Exam:?09/05/2024 ?Breast Cancer Screening?Mammogram should be performed every 12 - 27 months, depending on your risk status. STATUS:?Up To Date ?Colorectal Screening?Colorectal Cancer Screening - Colonoscopy should be performed once every 10 years. STATUS:?Up To Date ?FOBT - Screening fecal occult blood test should be performed once every years.?___ ?Influenza Vaccine?Influenza vaccine should be given once every flu season. STATUS:?Up To Date ?Pneumococcal Vaccine?Pneumococcal Vaccine should be given once in a lifetime. STATUS:?Given ?Shingrix vaccine should be given once a lifetime.?Given ?Diabetic Eye Exam?Eye/ Diabetic Eye Exam:?Up To Date ??Screenings:?Fall risk screening?Fall Risk Assessment:?One fall without injury in the past year ?Have you had two or more falls in the past year??No ?Have you had any falls with injury in the past year??No * Follow Up:?6 Months * Billing Information: * Visit Code:? 41398 Office Visit, Est Pt., Level 3. * Procedure Codes:? G0439 ANNUAL WELLNESS VST; PPS SUBSQT VST. G0444 ANNUAL DEPRESSION SCREENING 15 MIN. * TOP LINER Sign off status: Completed true * Provider:?Yinka Jackson MD Date:?06/2024 Generated for Printi ng/Faxing/eTransmitting on:?11/01/2024 12:02 AM HOT TOP LINER History and Physical Notes * HPI (History of Present Illness) Category Sub-Category Detail Notes Category Not es Patient Care Team - Dr. Schafer Poteet Medicare AW Health Status How is your over all health?: Good Emergency Room Visits How many times in the last 6 months have you been to the emergency room?: 0 times Hospital Visits How many time in the last 6 months have you been admitted to the hospital?: 0 times Home/Safety Do you have any concerns regardi ng home safety?: None Do you wear a seatbelt?: Yes Diet The patient describes their diet as:: Balanced Exercise The patient currently exercises: : Never Activities of Daily Living ADLs:: Able to prefor m all ADLs independently IADLS:: Use the telephone,Sh op for groceries,Handle finances,Drive/Use Public Transportation,Make meals,Take medications Cognitive Screening Do you or your famil y members have any concerns about your memory?: No Depression Screening was performed: PHQ score 4 Bladdar Concerns Bladder Concerns: Taylor s occasional urinary incontinence Vision Screening Vision Screening:: N o current vision problems identified Glaucoma Hearing Screening Hearing Screening:: Bilateral hearing deficit reported on screening Patient reports some hearing loss Opioid/Alcohol/Illicit Drugs Use The patient is currently prescribed opioids?: No Patient Care Team Patient Care Team: Mold Cleaner: Psychiatrist Depression Screening Depression Screenin g was Preformed. Screening was:: Negative 4
--- OUTSIDE RECORDS SUMMARY | 2024-11-01 00:02 | XMS_ITS ---
Author Organization [facility] j carlos Address [address] [place] [address] Care Team Providers Care Correctional Program Officer Name Role Phone Yinka Jackson Primary Care Provider Michael Barr Unavailable [phone] Yinka Jackson MD Unavailable Unavailable Allergies Allergen (clinical drug ingredient) Drug/Non Drug Allergy documented on EMR Reaction Allergy Type Onset Date Status Substance with penicillin structure and antibacterial mechanism of action (substance) Penicillins Unknown Drug Allergy 08/19/2017 Active Results Component Value Reference Range Notes Hep Func Panel Reviewed date:10/16/2024 05:24:28 AM Interpretation: Performing Lab:[facility] , [address] [place] [address]. [facility] [address] Notes/Report: Total Bilirubin 0.5 0.1-1.2 mg/dL Bilirubin, Direct 0.2 0.1-0.3 mg/dL Plasma Total Protein 6.6 6.5-8.5 g/dL Albumin 3.8 3.5-5.0 g/dL Alkaline Phosphatase 55 40-130 Units/L ALT 18 7-45 Units/L AST 22 10-45 Units/L Creatinine Reviewed date:10/16/2024 05:24:32 AM Interpretation: Performing Lab:[facility] , [address] [place] [address]. [facility] [address] Notes/Report: Creatinine 1.02 0.60-1.10 mg/dL CBC w auto diff Reviewed date:10/16/2024 05:24:54 AM Interpretation: Performing Lab:[facility] , [address] [place] [address]. [facility] [address] Notes/Report: WBC 7.0 3.8-9.9 K/cumm Hgb 11.9 11.9-15.5 g/dL Hct 37.9 35.6-45.5 % Platelet Ct 271 150-400 K/cumm MPV 10.0 9.1-12.3 fL RBC 3.84 3.90-5.20 M/cumm MCV 98.7 81.3-96.4 fL MCH 31.0 27.1-33.3 pg MCHC 31.4 32.3-35.7 g/dL RDW CV 15.3 11.1-14.9 % RDW SD 55.1 35.7-48.1 fL NRBC Abs Auto 0.00 0.00-0.01 K/cumm REASON FOR VISIT 3 month f/u Medications Medication SIG (Take, Route, Frequency, Duration) Notes Start Date End Date Status Torsemide 5 MG 1 tablet Orally Once a day for 90 days Active oxyBUTYnin Chloride ER 10 MG 1 tablet Orally Once a day for 30 days 09/05/2024 Active Austedo 9 mg Oral Not-Filemon ing Austedo 6 mg Oral Not-Filemon ing Ropinole 0.5 mg *Reorder from [employer] for eRx and Interaction Alerts* Not-Taking Atorvastatin Calcium 40 MG TAKE 1 TABLET(40 MG) BY MOUTH EVERY DAY AT BEDTIME for 90 Active Folic Acid 1 MG TAKE 1 TABLET BY MOUTH EVERY DAY for 90 Active Diclofenac Sodium 75 MG TAKE 1 TABLET BY MOUTH TWICE DAILY for 90 Active Propranolol HCl ER 60 MG TAKE 1 CAPSULE BY MOUTH EVERY DAY for 90 Active Methotrexate Sodium 2.5 MG TAKE 7 TABLETS BY MOUTH EVERY WEEK Oral 02/11/2023 Active Latanoprost 0.005 % Ophthalmic Active Citalopram Hydrobromide 20 MG take 1 tablet (20 mg) by oral route once daily Oral 1 Active Restasis 0.05 % instill 1 drop into affected eye(s) by ophthalmic route 2 times per day Ophthalmic 2 Active risperiDONE 1 MG take 1 tablet (1 mg) by oral route once daily Oral 1 02/11/2023 Active Depakote 500 MG take 2 tablets (1,000 mg) by oral route 2 times per day Oral 2 02/11/2023 Active Lisinopril 5 MG TAKE 1 TABLET(5 MG) BY MOUTH EVERY DAY for 90 Active Levothyroxine Sodium 100 MCG 1 tablet Orally Once a day in the morning on an empty stomach for 30 days Active Vitamin D (Ergocalciferol) 1.25 MG (45689 UT) TAKE 1 CAPSULE BY MOUTH WEEKLY for 90 Active Social History Tobacco Use: Social History Observation Description Date Details (start date - stop date) Former Smoker NA - NA Tobacco Control (Standard) Question Answer Notes Tobacco use: Former smoker How long has it been since you last smoked? Mary ter than 10 years Vital Signs Temperature 98.0 degrees Fahrenheit 10/15/20 24 Blood pressure systolic 124 mm Hg 10/15/20 24 Blood pressure diastolic 72 mm Hg 024 Heart Rate 74 /min 10/15/2024 Height 65 in 10/15/2024 Weight 207.4 lbs 10/15/2024 BMI 34.51 kg/m2 10/15/2024 Oximetry 97 % 10/15/2024 Height-cm 165.1 cm 10/15/2024 Weight-kg 94.06 kg 10/15/2024 Encounters Encounter Location Date Provider Diagnosis [facility] [address] [place] [address] 10/15/2024 Michael Barr Other specified rheumatoid arthritis, multiple sites M06.89 and Other shelter (current) drug therapy Z79.899 Assessments Encounter Date Diagnosis (ICD Code) Assessment Notes Treatment Notes Treatment Clinical Notes Section Notes 10/15/2024 Other specified rheumatoid arthritis, multiple sites (ICD-10 - M06.89) 10/15/2024 Other terminal make up operator (current) drug therapy (ICD-10 - Z79.899) Plan Of Treatment Next Appt Details Follow Up: 3 Months, Reason: Provider Name:Michael koenig, 01/15/2025 11:00:00 AM, [address], [place], [address], Provider Name:Yinka andino, 03/05/2025 11:30:00 AM, [address], [place], [address], Progress Notes * Esther CAMARILLO MDOB: 0 (74 yo F)Acc No.[id number]:10/15/2024 Progress Notes Patient:?Esther CAMARILLO Provider:?Michael Barr MD :1950???Age:74 Y???Sex:Female D ate:10/15/2024 Address:[facility] [address] [place] [facility] Pcp:Yinka Jackson Subjective: * Chief Complaints: * ???3 month f/u * HPI: ???Advance Care Planning:? No acute joint swelling. No significant AM stiffness, gelling. No significant rash, bruises. No cough, SOB. No F/C/S. No GI upset. Bowels working-occ. constipation. Energy and sleep are OK. Tolerates meds. BP listed. Wt. down and appetite stable. Hands and wrists are OK. * ROS:?Energy OK. Sleep OK . * Medical History:? * Surgical History:?Knee Repla cement , bilat; [id number] relacement, left; [id number], Date of Procedure: 08/17, 10/17; 2021-11-07 * Hospitalization/Major Diagno stic Procedure:? * Family History:?Maternal Gra ndmother: Grandmother (maternal): osteoarthritis .? 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 * Medications:?TakingVitamin D (Ergocalciferol) 1.25 MG (69397 UT) Capsule TAKE 1 CAPSULE BY MOUTH [...] Tablet 1 tablet Orally Once a day oxyBUTYnin Chloride ER 10 MG Tablet Extended Release 24 Hour 1 tablet Orally Once a day Taking Vitamin D (Ergocalciferol) 1.25 MG (27557 UT) Capsule TAKE 1 CAPSULE BY MOUTH [...] 1 tablet Orally Once a day Taking oxyBUTYnin Chloride ER 10 MG Tablet Extended Release 24 Hour 1 tablet Orally Once a day Not-TakingAustedo 6 mg Tablet Oral Ropinole 0.5 mg , Notes to Pharmacist: *[facility]*Austedo 9 mg Tablet Oral Medication List reviewed and reconciled with the patientNot-Taking Austedo 6 mg Tablet Oral Not-Taking Ropinole 0.5 mg , Notes to Pharmacist: *[facility]*Not-Taking Austedo 9 mg Tablet Oral Medication List reviewed and reconciled with the patient * Allergies:?Penicillins: Richard rgy - Onset Date 08/19/2017 Objective: * Vitals:?BP:124/72mm Hg, HR:7 4/min, Temp:98.0F, Oxygen sat %:97%, Wt:207.4lbs, Wt-k.06kg, Ht:65in, Ht-cm:165.1cm, BMI:34.51Index, Body Surface Area:2.08. * Examination: ???General Examination: ???Physical Examination Constitutional Appearance : well nourished, alert, in no acute distress Head and Face/Head : NC/AT Inspection : normocephalic, atraumatic Eyes/Conjunctivae : conjunctiva normal Sclerae : sclera white Psychiatric/Judgment and Insight : judgment and insight intact Mood and Affect : mood normal, affect appropriate Cervical Spine: normal curvatures Right Upper Extremity Hand : NS Left Upper Extremity Hand : NS Gait: gait normal . Assessment: * Assessment: 1.?Other specified rheumatoi d arthritis, multiple sites - M06.89 (Primary)???2.?Other terminal make up operator (current) drug therapy - Z79.899??? Plan: * Treatment: 2.?Other terminal make up operator (current) drug therapy?LAB: CBC w auto diff ?LAB: Creatinine ?LAB: Hep Func Panel * Procedure Codes:?G2211 Compl ex e/m visit add on * Follow Up:?3 Months * Billing Information: * Visit Code:? 58350 Office Visit, Est Pt., Level 4. * Procedure Codes:? G2211 Complex e/m visit add on. * [employer]ANCE [employer] TITLES Sign off status: Completed true * Provider:?Michael Barr MD Date:? 10/15/2024 Generated for Dawit albert/Fady/Anna on:?11/01/2024 12:01 AM INSURANCE JOB TITLES History and Physical Notes * Examination Category Sub-Category Detail Notes Category Not es General Examination Physical Examination Constitutional Appearance : well nourished, alert, in no acute distress Head and Face/Head : NC/AT Inspection : normocephalic, atraumatic Eyes/Conjunctivae : conjunctiva normal Sclerae : sclera white Psychiatric/Judgment and Insight : judgment and insight intact Mood and Affect : mood normal, affect appropriate Cervical Spine: normal curvatures Right Upper Extremity Hand : NS Left Upper Extremity Hand : NS Gait: gait normal
--- OUTSIDE RECORDS SUMMARY | 2024-11-01 00:03 | XMS_ITS | Patient Health Record ---
Author Organization [facility] carlos Address [address] [facility] [address] [place] [address] Care Team Providers Care Coal Pipeline Operator Name Role Phone Yinka Jacksno Primary Care Provider [phone] Michael Barr Unavailable [phone] Manuel TURNER, Yinka Unavailable Unavailable Kylee Tyler Unavailable [phone] Allergies Allergen (clinical drug ingredient) Drug/Non Drug Allergy documented on EMR Reaction Allergy Type Onset Date Status Substance with penicillin structure and antibacterial mechanism of action (substance) Penicillins Unknown Drug Allergy 08/19/2017 Active Results Component Value Reference Range Notes CBC w auto diff Reviewed date:10/16/2024 05:24:54 AM Interpretation: Performing Lab:[facility] , [address] [place] [address]. [facility] [address] Notes/Report: WBC 7.0 3.8-9.9 K/cumm Hgb 11.9 11.9-15.5 g/dL Hct 37.9 35.6-45.5 % Platelet Ct 271 150-400 K/cumm MPV 10.0 9.1-12.3 fL RBC 3.84 3.90-5.20 M/cumm MCV 98.7 81.3-96.4 fL MCH 31.0 27.1-33.3 pg MCHC 31.4 32.3-35.7 g/dL RDW CV 15.3 11.1-14.9 % RDW SD 55.1 35.7-48.1 fL NRBC Abs Auto 0.00 0.00-0.01 K/cumm Creatinine Reviewed date:10/16/2024 05:24:32 AM Interpretation: Performing Lab:[facility] , [address] [place] [address]. [place] [address] Notes/Report: Creatinine 1.02 0.60-1.10 mg/dL Hep Func Panel Reviewed date:10/16/2024 05:24:28 AM Interpretation: Performing Lab:[facility] , [address] [place] [address]. [place] [address] Notes/Report: Total Bilirubin 0.5 0.1-1.2 mg/dL Bilirubin, Direct 0.2 0.1-0.3 mg/dL Plasma Total Protein 6.6 6.5-8.5 g/dL Albumin 3.8 3.5-5.0 g/dL Alkaline Phosphatase 55 40-130 Units/L ALT 18 7-45 Units/L AST 22 10-45 Units/L eGFR Reviewed date:10/16/2024 05:28:18 AM Interpretation: Performing Lab:[facility] , [address] [place] [address]. [place] [address] Notes/Report: eGFR 58 >=60 mL/min/1.73 m2 Interpretive Data Reference Interval Normal >/= 90 mL/min/1.73m2 Mildly decreased* 60 - 89 mL/min/1.73m2 Mildly to moderately decreased 45 - 59 mL/min/1.73m2 Moderately to severely decreased 30 - 44 mL/min/1.73m2 Severely decreased 15 - 29 mL/min/1.73m2 Kidney Failure < 15 mL/min/1.73m2 *Relative to young adult level Estimated glomerular filtration rate is determined by the 2020 CKD-EPI equation recommended by the National Kidney Foundation (A Unifying Approach to GFR Estimation: Recommendations of the NKF-ASK Task Force on Reassessing the Inclusion of Race in Diagnosing Kidney Disease, JASN 2020). The CKD-EPI equation should not be used for patients with unstable renal function and has not been validated in children and those over 70. Current interpretive data was last reviewed 2021. Differential Automated Reviewed date:10/16/2024 05:27:06 AM Interpretation: Performing Lab:[facility] , [address] [place] [address]. [place] [address] Notes/Report: Neut Abs 4.7 1.5-6.5 K/cumm ImmGran Abs 0.0 0.0-0.1 K/cumm Lymphocyte Abs 1.3 0.8-3.3 K/cumm Clearwater Abs 0.7 0.2-0.8 K/cumm Eos Abs 0.3 0.0-0.5 K/cumm Baso Abs 0.1 0.0-0.1 K/cumm Neut Pct 67.6 Interpretive Data Percent cell count reference ranges are not reported, since discordance with absolute values may lead to misinterpretation of CBC data. Current Interpretive Data was last revised on 2018. ImmGran Pct 0.4 Interpretive Data Percent cell count reference ranges are not reported, since discordance with absolute values may lead to misinterpretation of CBC data. Current Interpretive Data was last revised on 2018. Lymph Pct 18.0 Interpretive Data Percent cell count reference ranges are not reported, since discordance with absolute values may lead to misinterpretation of CBC data. Current Interpretive Data was last revised on 2018. Clearwater Pct 9.7 Interpretive Data Percent cell count reference ranges are not reported, since discordance with absolute values may lead to misinterpretation of CBC data. Current Interpretive Data was last revised on 2018. Eos Pct 3.6 Interpretive Data Percent cell count reference ranges are not reported, since discordance with absolute values may lead to misinterpretation of CBC data. Current Interpretive Data was last revised on 2018. Baso Pct 0.7 Interpretive Data Percent cell count reference ranges are not reported, since discordance with absolute values may lead to misinterpretation of CBC data. Current Interpretive Data was last revised on 2018. eGFR Reviewed date:07/23/2024 05:08:32 AM Interpretation: Performing Lab:[facility] , [address] [place] [address]. [facility] [address] Notes/Report: eGFR 56 >=60 mL/min/1.73 m2 Reference Interval Normal >/= 90 mL/min/1.73m2 Mildly decreased* 60 - 89 mL/min/1.73m2 Mildly to moderately decreased 45 - 59 mL/min/1.73m2 Moderately to severely decreased 30 - 44 mL/min/1.73m2 Severely decreased 15 - 29 mL/min/1.73m2 Kidney Failure < 15 mL/min/1.73m2 *Relative to young adult level Estimated glomerular filtration rate is determined by the 2020 CKD-EPI equation recommended by the National Kidney Foundation (A Unifying Approach to GFR Estimation: Recommendations of the NKF-ASK Task Force on Reassessing the Inclusion of Race in Diagnosing Kidney Disease, JASN 2020). The CKD-EPI equation should not be used for patients with unstable renal function and has not been validated in children and those over 70. Current interpretive data was last reviewed 2021. Interpretive Data Differential Automated Reviewed date:07/23/2024 05:08:32 AM Interpretation: Performing Lab:[facility] , [facility]. [facility] [address] Notes/Report: Neut Abs 4.5 1.5-6.5 K/cumm ImmGran Abs 0.0 0.0-0.1 K/cumm Lymphocyte Abs 1.1 0.8-3.3 K/cumm Clearwater Abs 0.6 0.2-0.8 K/cumm Eos Abs 0.2 0.0-0.5 K/cumm Baso Abs 0.1 0.0-0.1 K/cumm Neut Pct 68.6 Interpretive Data Percent cell count reference ranges are not reported, since discordance with absolute values may lead to misinterpretation of CBC data. Current Interpretive Data was last revised on 2018. ImmGran Pct 0.5 Interpretive Data Percent cell count reference ranges are not reported, since discordance with absolute values may lead to misinterpretation of CBC data. Current Interpretive Data was last revised on 2018. Lymph Pct 17.1 Interpretive Data Percent cell count reference ranges are not reported, since discordance with absolute values may lead to misinterpretation of CBC data. Current Interpretive Data was last revised on 2018. Clearwater Pct 9.4 Interpretive Data Percent cell count reference ranges are not reported, since discordance with absolute values may lead to misinterpretation of CBC data. Current Interpretive Data was last revised on 2018. Eos Pct 3.5 Interpretive Data Percent cell count reference ranges are not reported, since discordance with absolute values may lead to misinterpretation of CBC data. Current Interpretive Data was last revised on 2018. Baso Pct 0.9 Interpretive Data Percent cell count reference ranges are not reported, since discordance with absolute values may lead to misinterpretation of CBC data. Current Interpretive Data was last revised on 2018. Hep Func Panel Reviewed date:07/23/2024 05:08:33 AM Interpretation: Performing Lab:[facility] , [address] [place] [address]. [facility] [address] Notes/Report: Total Bilirubin 0.4 0.1-1.2 mg/dL Bilirubin, Direct <0.2 0.1-0.3 mg/dL Plasma Total Protein 6.7 6.5-8.5 g/dL Albumin 3.8 3.5-5.0 g/dL Alkaline Phosphatase 62 40-130 Units/L ALT 17 7-45 Units/L AST 18 10-45 Units/L Creatinine Reviewed date:07/23/2024 05:08:32 AM Interpretation: Performing Lab:[facility] , [address] [place] [address]. [facility] [address] Notes/Report: Creatinine 1.05 0.60-1.10 mg/dL CBC w auto diff Reviewed date:07/23/2024 05:08:32 AM Interpretation: Performing Lab:[facility] , [address] [place] [address]. [facility] [address] Notes/Report: WBC 6.6 3.8-9.9 K/cumm Hgb 11.9 11.9-15.5 g/dL Hct 38.7 35.6-45.5 % Platelet Ct 277 150-400 K/cumm MPV 10.4 9.1-12.3 fL RBC 3.99 3.90-5.20 M/cumm MCV 97.0 81.3-96.4 fL MCH 29.8 27.1-33.3 pg MCHC 30.7 32.3-35.7 g/dL RDW CV 14.7 11.1-14.9 % RDW SD 51.6 35.7-48.1 fL NRBC Abs Auto 0.00 0.00-0.01 K/cumm Reason For Referral No Information Medications Medication SIG (Take, Route, Frequency, Duration) Notes Start Date End Date Status Lisinopril 5 MG TAKE 1 TABLET(5 MG) BY MOUTH EVERY DAY for 90 Active Levothyroxine Sodium 100 MCG 1 tablet Orally Once a day in the morning on an empty stomach for 30 days Active Folic Acid 1 MG TAKE 1 TABLET BY MOUTH EVERY DAY for 90 Active Vitamin D (Ergocalciferol) 1.25 MG (18680 UT) TAKE 1 CAPSULE BY MOUTH WEEKLY for 90 Active Diclofenac Sodium 75 MG TAKE 1 TABLET BY MOUTH TWICE DAILY for 90 Active Propranolol HCl ER 60 MG TAKE 1 CAPSULE BY MOUTH EVERY DAY for 90 Active Methotrexate Sodium 2.5 MG TAKE 7 TABLETS BY MOUTH EVERY WEEK Oral 02/11/2023 Active Citalopram Hydrobromide 20 MG take 1 tablet (20 mg) by oral route once daily Oral 1 Active Austedo 9 mg Oral Not-Filemon ing Restasis 0.05 % instill 1 drop into affected eye(s) by ophthalmic route 2 times per day Ophthalmic 2 Active risperiDONE 1 MG take 1 tablet (1 mg) by oral route once daily Oral 1 02/11/2023 Active Austedo 6 mg Oral Not-Filemon ing Depakote 500 MG take 2 tablets (1,000 mg) by oral route 2 times per day Oral 2 02/11/2023 Active Ropinole 0.5 mg *Reorder from Ruth [employer] for eRx and Interaction Alerts* Not-Taking Torsemide 5 MG 1 tablet Orally Once a day for 90 days Active Latanoprost 0.005 % Ophthalmic Active oxyBUTYnin Chloride ER 10 MG 1 tablet Orally Once a day for 30 days 09/05/2024 Active Atorvastatin Calcium 40 MG 1 tablet Orally Once a day for 90 days Active Immunizations Vaccine Route Administration Date Status Comme nts COVID- Vaccine mRNA Unknown 08/21/2024 Administered Influenza high dose > 65 [facility] IM Intramuscular 09/20/2015 Administered Influenza high dose > 65 [facility] IM Intramuscular 08/22/2016 Administered Influenza high dose > 65 [facility] IM Intramuscular 08/14/2021 Administered Influenza high dose > 65 [facility] IM Intramuscular 08/13/2023 Administered Influenza, high-dose seasonal, quadrivalent, preservative free >65 yrs Unknown 08/21/2024 Administered Infuenza, trivalent, recombinant, preservative free IM Intramuscular 08/05/2014 Administered [address] [facility] [address] TB Skin Test Unknown 12/20/2003 Administered migrated LegPatid= [id number] Date=12/20/2003 Vac= TB Skin Test Td (adult) IM Intramuscular 01/15/2024 Administered Tdap IM Intramuscular 04/19/2016 Administered Social History Tobacco Use: Social History Observation Description Date Details (start date - stop date) Former Smoker NA - NA Tobacco Control (Standard) Question Answer Notes Tobacco use: Former smoker How long has it been since you last smoked? 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) Active confirmed Problem 008335995 [facility] [place] [facility] drug therapy (Z79.899) Active confirmed Problem 598750641 OAB (overactive bladder) (N32.81) Active confirmed Problem Hypothyroidism (75447138) Hypothyroidism, unspecified (E03.9) 02/16/20 05 Active confirmed Problem Bipolar disorder (16885161) Bipolar disorder, unspecified (F31.9) Active confirmed Problem Gastro-esophageal reflux disease without esophagitis (121764999) Gastro-esophagea l reflux disease without esophagitis (K21.9) Active confirmed Problem Rheumatoid arthritis (47418988) Rheumatoid arthritis, unspecified (M06.9) 02/16/20 05 Active confirmed Problem Disorder of bone (05943003) Other specified disorders of bone density and structure, unspecified site (M85.80) 08/05/20 08 Active confirmed Problem Essential hypertension (54664114) Essential (primary) hypertension (I10) 02/16/20 05 Active confirmed Vital Signs Heart Rate 74 /min 10/15/2024 Temperature 98.0 degrees Fahrenheit 10/15/2024 Height-cm 165.1 cm 10/15/2024 Oximetry 97 % 10/15/2024 Blood pressure diastolic 72 mm Hg 10/15/2024 Weight-kg 94.06 kg 10/15/2024 Height 65 in 10/15/2024 Blood pressure systolic 124 mm Hg 10/15/2024 Weight 207.4 lbs 10/15/2024 BMI 34.51 kg/m2 10/15/2024 Encounters Encounter Location Date Provider Diagnosis [facility] [address] [facility] [address] [place] [address] 12/26/2023 Michael Barr Rheumatoid arthritis , unspecified M06.9 and 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 [facility] [address] [place] [address] 01/15/2024 Yinka Jackson Hypothyroidism, unspecified E03.9 ; Bipolar disorder, unspecified F31.9 ; Gastro-esophageal reflux disease without esophagitis K21.9 ; Rheumatoid arthritis, unspecified M06.9 ; Essential (primary) hypertension I10 ; [facility] [place] [facility] drug therapy Z79.899 and Encounter for immunization Z23 [facility] [address] [place] [address] 03/25/2024 Michael Barr Rheumatoid arthritis , unspecified M06.9 and [facility] [place] drug therapy Z79.899 [facility] [address] [place] [address] 07/16/2024 Michael Barr [facility] [address] [place] [address] 07/22/2024 Michael Barr Other specified rheumatoid arthritis, multiple sites M06.89 and 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 [address] [place] [address] 09/05/2024 Yinka Jackson Other specified disorders of bone density and structure, 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 ; Hypothyroidism, unspecified E03.9 ; Bipolar disorder, unspecified F31.9 ; Gastro-esophageal reflux disease without esophagitis K21.9 ; Rheumatoid arthritis, unspecified M06.9 ; Essential (primary) hypertension I10 and OAB (overactive bladder) N32.81 [facility] [address] [place] [address] 10/15/2024 Michael Barr Other specified rheumatoid arthritis, multiple sites M06.89 and 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 [facility] [address] [place] [address] 12/04/2023 [facility] [address] [place] [address] 01/21/2024 [facility] [address] [place] [address] 10/22/2024 Yinka Jackson Assessments Encounter Date Diagnosis (ICD Code) Assessment Notes Treatment Notes Treatment Clinical Notes Section Notes 12/26/2023 Rheumatoid arthritis, unspecified (ICD-10 - M06.9) 12/26/2023 [facility] [place] [facility] drug therapy (ICD-10 - Z79.899) 01/15/2024 Hypothyroidism, unspecified (ICD-10 - E03.9) 01/15/2024 Bipolar disorder, unspecified (ICD-10 - F31.9) 03/25/2024 Rheumatoid arthritis, unspecified (ICD-10 - M06.9) 09/05/2024 Hypothyroidism, unspecified (ICD-10 - E03.9) 07/22/2024 Other specified rheumatoid arthritis, multiple sites (ICD-10 - M06.89) 09/05/2024 Other specified disorders of bone density and structure, unspecified site (ICD-10 - M85.80) 10/15/2024 Other specified rheumatoid arthritis, multiple sites (ICD-10 - M06.89) 10/15/2024 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 (ICD-10 - Z79.899) 07/22/2024 [facility] [place] drug therapy (ICD-10 - Z79.899) 09/05/2024 Bipolar disorder, unspecified (ICD-10 - F31.9) 03/25/2024 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 (ICD-10 - Z79.899) 01/15/2024 Gastro-esophageal reflux disease without esophagitis (ICD-10 - K21.9) 01/15/2024 Rheumatoid arthritis, unspecified (ICD-10 - M06.9) 09/05/2024 Gastro-esophageal reflux disease without esophagitis (ICD-10 - K21.9) 09/05/2024 Rheumatoid arthritis, unspecified (ICD-10 - M06.9) 01/15/2024 Essential (primary) hypertension (ICD-10 - I10) 01/15/2024 [facility] [place] [facility] drug therapy (ICD-10 - Z79.899) 09/05/2024 Essential (primary) hypertension (ICD-10 - I10) 09/05/2024 OAB (overactive bladder) (ICD-10 - N32.81) 01/15/2024 Encounter for immunization (ICD-10 - Z23) 07/16/2024 Other Plan Of Treatment Pending Test Test Name Order Date Urinalysis, Routine 01/15/2024 TSH 01/15/2024 CBC With Differential/Platelet 3 CBC With Differential/Platelet 4 CBC With Differential/Platelet 4 CMP - Comp. Metabolic Panel (14) 024 Hepatic Function Panel (7) 12/26/2023 Hepatic Function Panel (7) 09/18/2023 Hepatic Function Panel (7) 03/25/2024 CBC 01/15/2024 Creatinine 09/18/2023 Creatinine 12/26/2023 Creatinine 03/25/2024 Hemoglobin A1c* 01/15/2024 Next Appt Details Provider Name:iMchael koenig, 01/15/2025 11:00:00 AM, [address], [address], [place], [address], Provider Name:Yinka andino, 03/05/2025 11:30:00 AM, [address], [facility] [address], [place], [address], Insurance Providers Payer Name Payer Address Payer Phone Subscriber Number Group Number Insured Name Patient Relationship to Insured Coverage Start Date Coverage End Date [employer] [address] [address] [place] [address] [id number] Esther Munguia Self - patient is the insured 9 [employer] - INDEMNITY [address] [address] [place] [address] [phone] [id number] Esther Munguia Self - patient is the insured 9 [employer] [address] [address] [place] [address] [phone] [id number] Esther Munguia Self - patient is the insured Medical (General) History Medical History History ICD Code Arthritis, Date of Onset: 02/15/2005 ; Bipolar I disorder; Dry eyes; GERD (gastroesophageal reflux disease); Hyperlipidemia; Hypertension, essential, Date of Onset: 02/15/2005 ; Hypothyroidism, Acquired: , Date of Onset: 02/15/2005 ; Ingrown Nail, Date of Onset: 04/27/2014; Onychomycosis with marked li mitation of movement and clinical evidence 1-10., Date of Onset: 11/09/2014; Osteopenia, Date of Onset: 08/05/2008 ; PISTACHIOS, Date of Onset: 02/15/2005 ; Surgical History Surgery Date(Month/Year) Knee Replacement , bilat; 2021-06-27 Hip relacement, left; 2021-06-27 cataract, Date of Procedure: 08/17, 09/28; 2021-11-07
--- OUTSIDE RECORDS SUMMARY | 2024-11-01 00:04 | XMS_ITS ---
Author Organization [facility] [employer] [facility] Address [facility] [address] [facility] [address] [place] [address] Care Team Providers Care Community Engagement Specialist Name Role Phone Clifford Marlen Fawad [phone] Social History Sex Assigned At : Social History Observation Description Sex Assigned At Female Encounters Encounter Location Date Provider Diagnosis [facility] [place] [address] [facility] [address] [place] [address] 09/02/2024 Marlen Weems Plan Of Treatment Next Appt Details Provider Name:Marlen Weems , 01/29/2025 11:00:00 AM, [address], [facility] [address], [place], [address], Progress Notes * JERRI CAMARILLODOB:1950 (74 yo F)Acc No.[id number]:09/02/2024 Patient:?DAVIDEBEENAJERRI Provider:?MARLEN WEEMS MD :1950???Age:74 Y???Sex:Female D ate:09/02/2024 [address] [facility] Subjective: * Chief Complaints: * ??? * Medical History:? Objective: * Vitals:? Assessment: Plan: * Treatment: * Procedure Codes:?NS NO SHOW * Billing Information: * Visit Code:? * Procedure Codes:? NS NO SHOW. * OR MAINTENANCE MECHANIC Sign off status: Completed true * Provider:?MARLEN WEEMS MD Date:? 024 Generated for Dawit albert/Fady/eTransmitting on:?11/01/2024 12:03 AM SENIOR MAINTENANCE MECHANIC
--- OUTSIDE RECORDS SUMMARY | 2024-11-01 00:05 | XMS_ITS | Encounter Summary ---
Author Organization [facility] Address [address] [place] [address]. [place], [place] [address] [place] [address] Care Team Providers Care Rivet Tosser Name Role Phone Unavailable Primary Care Provider Unavailabl e Encounter Details Date Type Department Care Team (Late st Contact Info) Description 03/14/1993 [place] [address] , Generic Conversion, Social History Tobacco Use Types Packs/Day Years Used Date Smoking Tobacco: Never Assessed Comments Unknown Sex and Gender Information Value Date Recorded Sex Assigned at Not on file Legal Sex Female 6:13 PM CDT Gender Identity Not on file Sexual Orientation Not on file documented as of this encounter Plan of Treatment Not on file documented as of this encounter Visit Diagnoses Not on filedocumented in this encounter
--- OUTSIDE RECORDS SUMMARY | 2024-11-01 00:05 | XMS_ITS | Encounter Summary ---
Author Organization [facility] Address [address] [place] [address] Care Team Providers Care Dinkey Engine Firer/Fireman Name Role Phone Unavailable Primary Care Provider Unavailabl e Encounter Details Date Type Department Care Team (Late st Contact Info) Description 07/23/2000 Orders Only [facility] - Laboratory [address] [place] [address] ProviderPhilly MD Social History Tobacco Use Types Packs/Day Years Used Date Smoking Tobacco: Never Assessed Sex and Gender Information Value Date Recorded Sex Assigned at Not on file Gender Identity Not on file Sexual Orientation Not on file documented as of this encounter Plan of Treatment Not on file documented as of this encounter Procedures Procedure Name Priority Date/Time Associated Diagnosis Comments GROSS + MICRO EXAM [facility] 07/23/2000 11 :01 AM CDT documented in this encounter Results * GROSS + MICRO EXAM (07/23/2000 11:01 AM CDT) Result CASE NUMBER [id number] Comment: ORDERING PHYSICIAN ??SORAIDA SANCHEZ SPECIMEN TYPE ?Uterus,tubes,ovary Surgeon ?SORAIDA SANCHEZ M.D. Gross Exam ? DR. HAYLEY HEIN M.D. Gross Report ? INDICATION FOR PROCEDURE ??PELVIC PAIN, ENDOMETRIOSIS OPERATION ??TOTAL ABDOMINAL HYSTERECTOMY, WITH BILATERAL SALPINGOOOPHORECTOMY SPECIMEN ??UTERUS, CERVIX, BILATERAL TUBES AND OVARIES GROSS ?? THE SPECIMEN IS RECEIVED IN A CONTAINER LABELED WITH THE PATIENT'S NAME JERRI CAMARILLO AND IDENTIFIED UTERUS, CERVIX, BILATERAL TUBES AND OVARIES . ??THE SPECIMEN CONSISTS OF A 190 GRAM UTERUS WITH ATTACHED BILATERAL ADNEXA. ??THE UTERUS MEASURES 9.0 X 7.0 X 7.0 CM. THERE ARE NUMEROUS HEMORRHAGIC FIBROUS SEROSAL ADHESIONS. ??THE ECTOCERVIX IS VASQUEZ SMOOTH AND MEASURES 2.5 CM. ??THE CERVICAL OS IS PINPOINT AND MEASURES 2 MM. THE ENDOCERVICAL CANAL IS LINED BY VASQUEZ GLISTENING MUCOSA. THE ENDOMETRIAL CAVITY IS LINED BY LUSH RED-VASQUEZ TISSUE AND MEASURES 3.5 X 3.5 CM. THE ENDOMETRIUM HAS A MAXIMAL THICKNESS OF 0.3 CM. AND THE MYOMETRIUM HAS A MAXIMAL THICKNESS OF 2.4 CM. ??SERIAL SECTIONS DISCLOSE NUMEROUS WHITE WHORLED WELL- CIRCUMSCRIBED NODULES WHICH RANGE IN SIZE FROM 0.5 TO 1.4 CM. IN GREATEST DIMENSION. ??THE RIGHT OVARY IS PINK-VASQUEZ, SOLID AND MEASURES 3.0 X 2.5 X 2.5 CM. SERIAL SECTIONS DISCLOSE A HEMORRHAGIC CORPUS LUTEUM. ??THE ATTACHED FALLOPIAN TUBE MEASURES 0.4 X 0.3 X 0.3 CM. ??THE LEFT OVARY IS CYSTIC, PREVIOUSLY RUPTURED AND MEASURES 6.0 CM. IN LENGTH WITH A WALL THICKNESS OF 0.3 CM. THE ATTACHED FALLOPIAN TUBE MEASURES 5.0 X 0.4 X 0.4 CM. GENERAL INTERNAL MEDICINE PHYSICIAN SECTIONS ARE SUBMITTED FOLLOWS A. ?? SEROSAL ADHESIONS B. ?? ANTERIOR CERVIX C. ?? POSTERIOR CERVIX D-E. ENDOMYOMETRIUM F. ?? INTRAMURAL NODULES G. ?? MYOMETRIUM ?? H. ?? RIGHT ADNEXA I-J. LEFT ADNEXA EZC/KA MICROSCOPIC EXAM ? MICROSCOPIC MICROSCOPIC EXAMINATION CONFIRMS THE BELOW CAPTIONED DIAGNOSIS. DIAGNOSIS ? DIAGNOSIS ?? [1] UTERUS, SEROSA, ABDOMINAL HYSTERECTOMY -- ?? HEMORRHAGIC FIBROUS ADHESIONS ?UTERUS, CERVIX, ABDOMINAL HYSTERECTOMY -- ?? MICROGLANDULAR HYPERPLASIA -- ?? SQUAMOUS METAPLASIA ?UTERUS, ENDOMETRIUM, ABDOMINAL HYSTERECTOMY -- ?? SECRETORY PHASE PATTERN ?UTERUS, MYOMETRIUM, ABDOMINAL HYSTERECTOMY -- ?? LEIOMYOMAS -- ?? ADENOMYOSIS ?RIGHT OVARY, OOPHORECTOMY -- ?? HEMORRHAGIC CORPUS LUTEUM ?LEFT OVARY, OOPHORECTOMY -- ?? HEMORRHAGIC FOLLICULAR CYST ?BILATERAL FALLOPIAN TUBES, SALPINGECTOMIES -- ?? NO PATHOLOGIC DIAGNOSIS EZC/SS [id number] ? Released By ?HAYLEY HEIN MISCELLANEOUS SAMPLES / Unknown 07/23/2000 11:01 AM CDT 07/23/2000 11:01 AM CDT Historical Provider LAB - PATHOLOGY/C YTOLOGY ORDERABLES documented in this encounter Visit Diagnoses Not on filedocumented in this encounter
--- OUTSIDE RECORDS SUMMARY | 2024-11-01 00:05 | XMS_ITS | Referral Summary ---
Author Organization [facility] Address [address] [place] [address] Care Team Providers Care Magistrate Judge Name Role Phone Yinka Jackson MD Primary Care Provider [phone] Encounters Date Type Department Care Team Description 10/15/2024 3:41 PM NEUROLOGY HOSPITALIST - 10/15/2024 11:59 PM NEUROLOGY HOSPITALIST Hospital Encounter [address] [place] [address] Discharge Disposition: Discharge to home or self care 08/28/[address] [facility] Care at [address] [address] Provider, MD Philly from Last 3 Months Allergies Active Allergy Reactions Criticality Noted Date Comments Ciprofloxacin Other (See comments),Stomach upset Low Reaction: sore tongue GI upset, , Reaction: sore tongue GI upset, , Penicillins Anaphylaxis High 06/22/2021 Medications lisinopril (PRINIVIL,ZESTR IL) 2.5 mg tablet take 1 tablet by oral route every day 0 0 3 Active torsemide (DEMADEX) 10 mg tablet take 1 tablet by oral route every day 0 0 3 Active levothyroxine (SYNTHROID, LEVOTHROID) 100 mcg tablet take 1 tablet (100MCG) by oral route every day 90 0 2 Active methotrexate 2.5 mg tablet take 7 Tablet (17.5MG) by oral route every week 0 2 Active risperiDONE (RisperDAL) 0.5 mg tablet take 1 Tablet (0.5MG) by oral route every bedtime 90 0 2 Active ferrous sulfate (IRON) 325 mg (65 mg iron) capsule, extended release take 1 by Oral route every day 0 2 Active Additional Information Patient not taking.Reported on 06/22/2021 folic acid (FOLVITE) 1 mg tablet take 2 Tablet (2MG) by oral route every day [address] (DEPAKOTE) 250 mg EC tablet take 2 Tablet (500MG) by oral route 2 times every day 360 0 2 Active oxybutynin (DITROPAN) 5 mg tablet take 1 tablet (5MG) by oral route 3 times every day 270 0 2 Active citalopram (CeleXA) 20 mg tablet take 1 tablet (20MG) by oral route every day 90 [address] (VOLTAREN) 75 mg EC tablet take 1 tablet (75MG) by oral route 2 times every day 0 2 Active DOXYCYCLINE HYCLATE 100 mg capsule 0 8 Active multivitamin with minerals tablet Active atorvastatin (LIPITOR) 20 mg tablet 20 mg 1 Active ergocalciferol (VITAMIN D) 50,000 unit capsule TAKE 1 CAPSULE BY MOUTH WEEKLY 1 Active latanoprost (XALATAN) 0.005 % ophthalmic solution 1 Active cycloSPORINE (RESTASIS) 0.05 % ophthalmic emulsion 1 drop 2 (two) times a day Active Active Problems Problem Noted Date Diagnosed Date Hypertension 06/19/2013 Overview (02/01/2017): Hypertension Mixed anxiety depressive disorder 06/19/2013 Overview (02/01/2017): Anxiety and depression Arthritis 06/19/2013 Overview (02/01/2017): Arthritis Knee pain 03/20/2013 Mitral valve insufficiency 09/22/2012 Overview (01/31/2017): Mitral regurgitation Bipolar affective disorder 09/22/2012 Overview (01/31/2017): Manic-depressive disorder Hypercholesterolemia 09/22/2012 Overview (01/31/2017): Hypercholesterolemia Lymphedema of upper extremity 09/22/2012 Overview (01/31/2017): Lymphedema of arm Rheumatoid arthritis 09/22/2012 Overview (01/31/2017): Rheumatoid arthritis Arthralgia of hip 09/04/2012 Osteoarthritis of knee 06/19/2010 Immunizations Name Administration Dates Next Due Influenza, Quadrivalent, Hig h Dose, Preservative Free, Intrr 08/19/2020 Influenza, Split 08/06/2012 Influenza, Trivalent, Adjuvanted, Intramuscular 10/24/2017 Influenza, Trivalent, High D ose, Split, Preservative Free, Intramuscular 10/26/2019 Influenza, Trivalent, IM (MDV) 08/05/2014 Social History Tobacco Use Types Packs/Day Years Used Date Smoking Tobacco: Former Smokeless Tobacco: Never Alcohol Use Standard Drinks/Week Comments Yes 0 (1 standard drink = 0.6 oz pur e alcohol) Comments Unknown Sex and Gender Information Value Date Recorded Sex Assigned at Not on file Legal Sex Female 2:17 AM NEUROLOGY HOSPITALIST Gender Identity Not on file Sexual Orientation Not on file Last Filed Vital Signs Vital Sign Reading Time Taken Comments Blood Pressure 135/84 07/10/2013 10:50 AM CDT Pulse 78 07/10/2013 10:50 AM CDT Temperature - - Respiratory Rate - - Oxygen Saturation - - Inhaled Oxygen Concentration - - Weight 111.5 kg (245 lb 12.8 oz) 06/22/2021 1:36 PM CDT Height 165.1 cm (5' 5 ) 06/22/2021 1:36 PM CDT Body Mass Index 40.9 06/22/2021 1:36 PM CDT Plan of Treatment Not on file Procedures Procedure Name Priority Date/Time Associated Diagnosis Comments EGFR Routine 10/15/2024 11:09 AM NEUROLOGY HOSPITALIST DIFFERENTIAL AUTO Routine 10/15/2024 11: 09 AM NEUROLOGY HOSPITALIST CREATININE Routine 10/15/2024 11:09 AM NEUROLOGY HOSPITALIST HEPATIC FUNCTION PANEL Routine 10/15/2024 11:09 AM NEUROLOGY HOSPITALIST CBC WITH AUTO DIFFERENTIAL Routine 10/15/2024 11:09 AM NEUROLOGY HOSPITALIST SCREENING MAMMOGRAM 2D BILATERAL Schedule Routine, Read Routine (OP Routine) 08/27/2024 9:00 AM CDT from Last 3 Months Results * (ABNORMAL) eGFR (10/15/2024 11:09 AM NEUROLOGY HOSPITALIST) eGFR 58(L) >=60 mL/min/1. 73 m2 Comment: Interpretive Data Reference Interval Normal ?>/= 90 mL/min/1.73m2 Mildly decreased* ? 60 - 89 mL/min/1.73m2 Mildly to moderately decreased ?45 - 59 mL/min/1.73m2 Moderately to severely decreased ??30 - 44 mL/min/1.73m2 Severely decreased ?15 - 29 mL/min/1.73m2 Kidney Failure ?< 15 ??mL/min/1.73m2 *Relative to young adult level Estimated glomerular [...] Current interpretive data was last reviewed 2021. Blood 10/15/2024 11:0 9 AM NEUROLOGY HOSPITALIST 10/15/2024 5:21 PM NEUROLOGY HOSPITALIST us Michael Hinds MD LAB BLOOD ORDERABLES Fin al Result [facility] [address] Department [place] [address] * Differential, auto (10/15/2024 11:09 AM NEUROLOGY HOSPITALIST) Neutrophil abs 4.7 1.5 - 6.5 K/cumm Imm gran abs 0.0 0.0 - 0.1 K/cumm [facility] Lymphocyte abs 1.3 0.8 - 3.3 K/cumm [facility] Monocyte abs 0.7 0.2 - 0.8 K/cumm [facility] Eosinophil abs 0.3 0.0 - 0.5 K/cumm [facility] Basophil abs 0.1 0.0 - 0.1 K/cumm [facility] Neutrophil pct 67.6 % [facility] Comment: Interpretive Data Percent cell count reference ranges are not reported, since discordance with absolute values may lead to misinterpretation of CBC data. Current Interpretive Data was last revised on 2018. Imm gran pct 0.4 % [facility] Comment: Interpretive Data Percent cell count reference ranges are not reported, since discordance with absolute values may lead to misinterpretation of CBC data. Current Interpretive Data was last revised on 2018. Lymphocyte pct 18.0 % [facility] Comment: Interpretive Data Percent cell count reference ranges are not reported, since discordance with absolute values may lead to misinterpretation of CBC data. Current Interpretive Data was last revised on 2018. Monocyte pct 9.7 % [facility] Comment: Interpretive Data Percent cell count reference ranges are not reported, since discordance with absolute values may lead to misinterpretation of CBC data. Current Interpretive Data was last revised on 2018. Eosinophil pct 3.6 % [facility] Comment: Interpretive Data Percent cell count reference ranges are not reported, since discordance with absolute values may lead to misinterpretation of CBC data. Current Interpretive Data was last revised on 2018. Basophil pct 0.7 % [facility] Comment: Interpretive Data Percent cell count reference ranges are not reported, since discordance with absolute values may lead to misinterpretation of CBC data. Current Interpretive Data was last revised on 2018. Blood 10/15/2024 11:0 9 AM NEUROLOGY HOSPITALIST 10/15/2024 4:39 PM NEUROLOGY HOSPITALIST us Michael Hinds MD LAB BLOOD ORDERABLES Fin al Result Performing Organization Address [facility] Co de Phone Number [facility] [address] Department of [employer] [place], [place] [id number] * (ABNORMAL) CBC with auto differential (10/15/2024 11:09 AM NEUROLOGY HOSPITALIST) WBC 7.0 3.8 - 9.9 K/cumm Hgb 11.9 11.9 - 15.5 g/dL [facility] Hct 37.9 35.6 - 45.5 % [facility] Plt 271 150 - 400 K/cumm [facility] MPV 10.0 9.1 - 12.3 fL [facility] RBC 3.84(L) 3.90 - 5.20 M/cumm [facility] MCV 98.7(H) 81.3 - 96.4 fL [facility] MCH 31.0 27.1 - 33.3 pg [facility] MCHC 31.4(L) 32.3 - 35.7 g/dL [facility] RDW CV 15.3(H) 11.1 - 14.9 % [facility] RDW SD 55.1(H) 35.7 - 48.1 fL [facility] NRBC abs 0.00 0.00 - 0.01 K/cumm [facility] Blood 10/15/2024 11:0 9 AM NEUROLOGY HOSPITALIST 10/15/2024 4:39 PM NEUROLOGY HOSPITALIST us Michael Hinds MD LAB BLOOD ORDERABLES Fin al Result Performing Organization Address City/[facility]/ZIP Co de Phone Number [facility] [address] Department [employer] [place], [place] [id number] * Creatinine (10/15/2024 11:09 AM NEUROLOGY HOSPITALIST) Creatinine 1.02 0.60 - 1.10 mg/dL Blood 10/15/2024 11:0 9 AM NEUROLOGY HOSPITALIST 10/15/2024 4:40 PM NEUROLOGY HOSPITALIST Michael Hinds MD LAB BLOOD ORDERABLES Fin al Result Performing Organization Address [facility] Co de Phone Number [facility] [address] Department [place] [address] * Hepatic function panel (10/15/2024 11:09 AM NEUROLOGY HOSPITALIST) Bilirubin, total 0.5 0.1 - 1.2 mg/dL Bilirubin, direct 0.2 0.1 - 0.3 mg/dL [facility] Protein, pl 6.6 6.5 - 8.5 g/dL [facility] Albumin 3.8 3.5 - 5.0 g/dL [facility] Alk phos 55 40 - 130 Units/L [facility] ALT 18 7 - 45 Units/L [facility] AST 22 10 - 45 Units/L [facility] Blood 10/15/2024 11:0 9 AM NEUROLOGY HOSPITALIST 10/15/2024 4:40 PM NEUROLOGY HOSPITALIST Michael Hinds MD LAB BLOOD ORDERABLES Fin al Result Performing Organization Address [facility] de Phone Number [facility] [address] Department [place] [address] * Screening Mammogram 2D Bilateral (08/27/2024 9:00 AM CDT) Anatomical Region Laterality Modality Breast Bilateral Mammography Historical Provider IMG MAMMO PROCEDURES Hamida l Result from Last 3 Months Insurance MEDICARE RAILROAD [facility] MEDICARE [facility]FORMERLY [facility] MEDICARE [employer] [facility] [place] [address] Care Teams Magistrate Judge Relationship Specialty Start Date End Date Yinka Jackson MD PCP - General Internal Medicine 12/27/21
--- OUTSIDE RECORDS SUMMARY | 2024-11-01 00:05 | XMS_ITS | Patient Health Summary ---
Author Organization [facility] Address [address] [place] [address] Care Team Providers Care Ophthalmic Medical Assistant Name Role Phone Unavailable Primary Care Provider Unavailabl e Note from [facility],non-owned Affiliates and Associated Physician Practices is amultiple site organization consisting of ambulatory clinics and hospital sitesin [place], [place], [place] and [place]. This disclosure is being madepursuant to the Care Everywhere program and may not contain all information available regarding this patient. Last updated 18.[facility] Social History Tobacco Use Types Packs/Day Years Used Date Smoking Tobacco: Never Assessed Sex and Gender Information Value Date Recorded Sex Assigned at Not on file Gender Identity Not on file Sexual Orientation Not on file Procedures * GROSS + MICRO EXAM(Performed 07/23/2000) Results * GROSS + MICRO EXAM (07/23/2000 [...] A CONTAINER LABELED WITH THE PATIENT'S NAME ESTHER CAMARILLO AND IDENTIFIED UTERUS, CERVIX, BILATERAL TUBES [...] MEASURES 5.0 X 0.4 X 0.4 CM. MARKETING STRATEGIST SECTIONS ARE SUBMITTED FOLLOWS A. ?? SEROSAL [...] SALPINGECTOMIES -- ?? NO PATHOLOGIC DIAGNOSIS EZC/SS [id number] ? Released By ?HAYLEY HEIN MISCELLANEOUS SAMPLES / Unknown 07/23/2000 11:01 AM CDT 07/23/2000 11:01 AM CDT Historical Provider MD LAB - PATHOLOGY/C YTOLOGY ORDERABLES
--- OUTSIDE RECORDS SUMMARY | 2024-11-01 00:05 | XMS_ITS | Encounter Summary ---
Author Organization [facility] Address [address] [place] [address]. [place], [place] [id number] [place] [address] Care Team Providers Care Meat Butcher Name Role Phone Unavailable Primary Care Provider Unavailabl e Encounter Details Date Type Department Care Team (Late st Contact Info) Description 12/21/1991 Abstract [place] [address] , Generic Conversion, Social History Tobacco Use [...]
--- OUTSIDE RECORDS SUMMARY | 2024-11-01 00:05 | XMS_ITS | Clinical Summary ---
Author Organization [facility] Address [address] [place] [address]. [place] [address] [place] [address] Care Team Providers Care Research Manufacturing Operator Name Role Phone Unavailable Primary Care Provider Unavailabl e Social History Tobacco Use Types Packs/Day Years Used Date Smoking Tobacco: Never Assessed Comments Unknown Sex and Gender Information Value Date Recorded Sex Assigned at Not on file Legal Sex Female 6:13 PM CDT Gender Identity Not on file Sexual Orientation Not on file Plan of Treatment Health Maintenance Due Date Last Done Comments Colorectal Cancer Screening Colonoscopy (10 Years) 1950 Hepatitis C 1968 DTaP, Tdap and Td Vaccines ( 1 - Tdap) 1969 Mammogram Screening 1990 Zoster Vaccines (1 of 2) 2000 Dexa Scan (General) 2015 Pneumococcal Vaccine: 65+ Ye ars (1 of 1 - PCV) 2015 COVID-19 Vaccine ( - 2023-2 5 season) 2024 Influenza Adult (#1) 2024 RSV Immunization or 60+ Years (1 - 1-dose 75+ series) 2025 Meningococcal Vaccine Aged Out No marlon yessenia eligible based on patient's age to complete this topic RSV Immunizations Under 20 Months Aged Out No longer eligible based on patient's age to complete this topic
--- OUTSIDE RECORDS SUMMARY | 2024-11-01 00:05 | XMS_ITS | Encounter Summary ---
Author Organization [facility] Address [address] [place] [address]. [place], [place] [id number] [place] [address] Care Team Providers Care Nursing Program Manager Name Role Phone Unavailable Primary Care Provider Unavailabl e Encounter Details Date Type Department Care Team (Late st Contact Info) Description 03/11/1991 Abstract [place] [address] , Generic Conversion, Social History Tobacco Use [...]
--- OUTSIDE RECORDS SUMMARY | 2024-11-01 00:05 | XMS_ITS ---
Author Organization [facility] [employer] Address [address] [facility] [address] [place] [address] Care Team Providers Care Banking Specialist Name Role Phone Marlen Weems Unavailable [phone] Allergies Allergen (clinical drug ingredient) Drug/Non Drug Allergy documented on EMR Reaction Allergy Type Onset Date Status Substance with penicillin structure and antibacterial mechanism of action (substance) Penicillins Unknown Drug Allergy 01/02/2024 Active REASON FOR VISIT follow up question about a med Medications Medication SIG (Take, Route, Frequency, Duration) Notes Start Date End Date Status Citalopram Hydrobromide 20 MG 1 tablet each morning Oral Once a day for 90 days Active rOPINIRole HCl 0.5 MG 1 tablet before bedtime Oral Once a day for 90 days Active Divalproex Sodium 500 MG 1 tablet Oral T wice a day for 90 days Active RisperDAL 1 MG 1 tablet before bedtime Oral Once a day for 90 days Active Citalopram Hydrobromide 20 MG 1 tablet Oral Once a day for 90 days Unknown Restasis 0.05 % Ophthalmic 01/02/2024 Un known Methotrexate 2.5 MG Oral 01/02/2024 Unknown Lisinopril 5 MG Oral 01/02/2024 Unk nown Divalproex Sodium 500 MG Oral 01/02/2024 Unknown oxyBUTYnin Chloride ER 10 MG Oral 01/02/2024 Unknown Folic Acid 1 MG Oral 01/02/2024 Unk nown Latanoprost 0.005 % Ophthalmic 01/02/2024 Unknown risperiDONE 1 MG Oral 01/02/2024 Un known Atorvastatin Calcium 40 MG Oral 01/02/2024 Unknown Propranolol HCl ER 60 MG Oral 01/02/2024 Unknown Ergocalciferol 1.25 MG (76217 UT) Oral 01/02/2024 Unknown Torsemide 5 mg Oral 01/02/2024 Unkn own Depakote 500 MG Oral 01/02/2024 Unk nown rOPINIRole HCl 0.5 MG Oral 01/02/2024 Unknown Levothyroxine Sodium 100 MCG Oral 01/02/2024 Unknown Diclofenac Sodium 75 MG Oral 01/02/2024 Unknown Vitamin D (Ergocalciferol) 1.25 MG (28062 UT) Oral for 84 Days Not-T aking Restasis 0.05 % Ophthalmic for 30 Days Active oxyCODONE HCl 5 MG TAKE 1 TABLET BY RIK TH EVERY 6 HOURS NEEDED Oral for 7 Days Active Lisinopril 5 MG Oral for 90 Days Active Latanoprost 0.005 % Ophthalmic for 100 Days Active Diclofenac Sodium 75 MG TAKE 1 TABLET BY MOUTH TWICE DAILY Oral for 90 Days Active Levothyroxine Sodium 100 MCG TAKE 1 TABLET BY MOUTH EVERY DAY IN THE MORNING ON AN EMPTY STOMACH Oral for 90 Days Active Torsemide 5 MG Oral for 90 Days Active Methotrexate Sodium 2.5 MG TAKE 7 TABLET S BY MOUTH WEEKLY Oral for 90 Days Active Atorvastatin Calcium 40 MG Oral for 90 Days Active Vitamin D (Ergocalciferol) 1.25 MG (91235 UT) Oral for 84 Days Activ e Restasis 0.05 % Ophthalmic for 30 Days Active Propranolol HCl ER 60 MG 1 capsule every Morning Oral Once a day for 90 days Active oxyBUTYnin Chloride ER 10 MG Oral for 90 Days Active Social History Tobacco Use: Social History Observation Description Date Details (start date - stop date) Former Smoker NA - NA Sex Assigned At : Social History Observation Description Sex Assigned At Female Tobacco Control (Standard) Question Answer Notes Tobacco use: Former smoker Vital Signs Blood pressure systolic 122 mm Hg 05/06/20 24 Blood pressure diastolic 80 mm Hg 024 Heart Rate 56 /min 05/06/2024 Height 64.00 in 05/06/2024 Weight 202 lbs 05/06/2024 BMI 34.67 kg/m2 05/06/2024 Height-cm 162.56 cm 05/06/2024 Weight-kg 91.63 kg 05/06/2024 122/80 Encounters Encounter Location Date [facility] [address] [address] 05/06/2024 Marlen Weems Bipolar 1 disorder F31.9 and Drug induced subacute dyskinesia G24.01 Assessments Encounter Date Diagnosis (ICD Code) Assessment Notes Treatment Notes Treatment Clinical Notes Section Notes 05/06/2024 Bipolar 1 disorder (ICD-10 - F31.9) 05/06/2024 Drug induced subacute dyskinesia (ICD-10 - G24.01) Plan Of Treatment Medication Medication Name Sig Start Date Stop Date Notes Citalopram Hydrobromide 20 MG 1 tablet e ach morning Oral Once a day for 90 days rOPINIRole HCl 0.5 MG 1 tablet before be dtime Oral Once a day for 90 days Divalproex Sodium 500 MG 1 tablet Oral T wice a day for 90 days RisperDAL 1 MG 1 tablet before bedt krishan Oral Once a day for 90 days Propranolol HCl ER 60 MG 1 capsule every Morning Oral Once a day for 90 days Next Appt Details Follow Up: 4 Months, Reason: bipolar disorder Provider Name:Marlen Weems , 01/29/2025 11:00:00 AM, [address] [place] [address] [address], [facility] [address], [place], [address], Progress Notes * JERRI CAMARILLODOB:1950 (73 yo F)Acc No.[id number]:05/06/2024 Patient:?JERRI CAMARILLO Provider:?MARLEN WEEMS MD :1950???Age:73 Y???Sex:Female D ate:05/06/2024 Address:[facility] Subjective: * Chief Complaints: * ???1. Follow up question abo ut a med. * HPI: ???History of Presenting Problem:? I've been pretty good Went to [place], went to [facility] for 4 days, came home with $375 more than she took with her frustrated about requesting refill on risperidone 2 days ago pharmacy told her request was denied, she contacted our office and was told that message would be given to me, but I had not received request for refills as of time of this appt will refill all meds for 90 day supply with 1 additional refill, pt will f/u in 4 month. ???Psychotherapy with Med eval:?Therapy with Med eval?Psychotherapy with Medication management?Yes,?Psychotherapy done Time Spent Minute?16 Min,?Type of therapy done?Supportive Therapy.? * Medical History:?Problems: B ipolar affective disorder, current episode depression, Long-term drug therapy, Tardive dyskinesia, ,. * Surgical History:?Orthopedic surgery ss (G4021) noe knee and hip surgeries , Hysterectomy/bladder repair (42296) 10/28/1998, Extraction of cataract ([id number]) 10/28/2021. * Hospitalization/Major Diagno stic Procedure:?Denies Past Hospitalization. * Family History:?Father: Wendy gnant neoplastic disease .?Mother: Congestive heart failure .?Brother: Neoplasm of thymus .?Sister: Bipolar disorder , Malignant melanoma , Schizophrenia .? * Social History:?Tobacco Use:?Tobacco Control (Standard)?Tobacco use:?Former smoker.?Migrated Social History:?Migrated Social History: Alcohol Intake: Occasional 10/03/2023,Tobacco Years: Former smoker 01/18/2023,Smoking Status: 25 10/03/2023. * Medications:?Taking oxyBUTYn in Chloride ER 10 MG Tablet Extended Release 24 Hour Oral , Taking Atorvastatin Calcium 40 MG Tablet Oral , Taking Citalopram Hydrobromide 20 MG Tablet TAKE 1 TABLET BY MOUTH DAILY Oral , Taking Restasis 0.05 % Emulsion Ophthalmic , Taking rOPINIRole HCl 0.5 MG Tablet TAKE 1 TABLET BY MOUTH EVERY DAY AT BEDTIME Oral , Taking Vitamin D (Ergocalciferol) 1.25 MG (87022 UT) Capsule Oral , Taking Divalproex Sodium 500 MG Tablet Delayed Release TAKE 1 TABLET BY MOUTH TWICE DAILY Oral , Taking Torsemide 5 MG Tablet Oral , Taking Methotrexate Sodium 2.5 MG Tablet TAKE 7 TABLETS BY MOUTH WEEKLY Oral , Taking oxyCODONE HCl 5 MG Tablet TAKE 1 TABLET BY MOUTH EVERY 6 HOURS NEEDED Oral , Taking Propranolol HCl ER 60 MG Capsule Extended Release 24 Hour Oral , Taking Diclofenac Sodium 75 MG Tablet Delayed Release TAKE 1 TABLET BY MOUTH TWICE DAILY Oral , Taking Levothyroxine Sodium 100 MCG Tablet TAKE 1 TABLET BY MOUTH EVERY DAY IN THE MORNING ON AN EMPTY STOMACH Oral , Taking Lisinopril 5 MG Tablet Oral , Taking Latanoprost 0.005 % Solution Ophthalmic , Taking Restasis 0.05 % Emulsion Ophthalmic , Taking RisperDAL 1 MG Tablet Oral , Not-Taking Vitamin D (Ergocalciferol) 1.25 MG (65954 UT) Capsule Oral , Discontinued Vitamin D (Ergocalciferol) 1.25 MG (62169 UT) Capsule TAKE 1 CAPSULE BY MOUTH WEEKLY Oral , Discontinued Latanoprost 0.005 % Solution Ophthalmic , Unknown Diclofenac Sodium 75 MG Tablet Delayed Release Oral , Unknown Ergocalciferol 1.25 MG (31910 UT) Capsule Oral , Unknown Torsemide 5 mg Tablet Oral , Unknown rOPINIRole HCl 0.5 MG Tablet Oral , Unknown Depakote 500 MG Tablet Delayed Release Oral , Unknown Levothyroxine Sodium 100 MCG Tablet Oral , Unknown Propranolol HCl ER 60 MG Capsule Extended Release 24 Hour Oral , Unknown risperiDONE 1 MG Tablet Oral , Unknown Atorvastatin Calcium 40 MG Tablet Oral , Unknown Folic Acid 1 MG Tablet Oral , Unknown Latanoprost 0.005 % Solution Ophthalmic , Unknown Restasis 0.05 % Emulsion Ophthalmic , Unknown Methotrexate 2.5 MG Tablet Oral , Unknown Lisinopril 5 MG Tablet Oral , Unknown Divalproex Sodium 500 MG Tablet Delayed Release Oral , Unknown oxyBUTYnin Chloride ER 10 MG Tablet Extended Release 24 Hour Oral , Unknown Citalopram Hydrobromide 20 MG Tablet 1 tablet Oral Once a day , Medication List reviewed and reconciled with the patient * Allergies:?Penicillins: Richard rgy - Onset Date 01/02/2024. Objective: * Vitals:?BP:122/80mm Hg, HR:5 6/min, Wt:202lbs, Wt-k.63 kg, Ht: 64.00 in, Ht- cm: 162.56 cm, BMI:34.67Index, Body Surface Area: 2.03. 122/80. * Examination: ???Psychiatry: ?Appearance:?well-groomed, well-nourished, ....?Affect / mood:?appropriate, ?flat affect, reports mood is good and level.?Attention:?good.?Attitude:?cooperative.?Suicidal ideation:?none.?Memory status:?no impairment noted.?Degree of awareness of surroundings:?within normal limits.?Delusions:?no.?Hallucinations:?no.?Insight:?good.?Intellectual functioning:?no impairment noted.?Judgement:?good.?Orientation:?awake, alert and oriented x 3.?Perceptual disorders:?no perceptual disorder noted.?Psychomotor activity:?within normal range.?Speech / language:?appropriate pitch/modulation, clear and coherent, normal rate, volume, and articulation (RVR), proper grammar used.?Thought content:?appropriate.?Thought process:?intact.? Assessment: * Assessment: 1.?Bipolar 1 disorder - F31. 9?2.?Drug induced subacute dyskinesia - G24.01? Plan: * Treatment: * Procedure Codes:?15737 PSYCH OTHERAPY W/PATIENT W/E&M SRVCS 30 MIN, G2211 VISIT COMPLEXITY INHERENT TO ONGOING CARE RELATED TO A PATIENT'S SINGLE, SERIOUS CONDITION OR A COMPLEX CONDITION * Follow Up:?4 Months (Reason: bipolar disorder) * Billing Information: * Visit Code:? 22602 OFFICE OUTPATIENT VISIT 25 MINUTES DETAILED HISTORY AND EXAM/MODERATE MEDICAL DECISION MAKING. * Procedure Codes:? 69874 PSYCHOTHERAPY W/PATIENT W/E&M SRVCS 30 MIN. G2211 VISIT COMPLEXITY INHERENT TO ONGOING CARE RELATED TO A PATIENT'S SINGLE, SERIOUS CONDITION OR A COMPLEX CONDITION. * Sign off status: Completed true * Provider:?MARLEN WEEMS MD Date:? 024 Generated for Dwait albert/Fady/Anna on:?11/01/2024 12:04 AM WHAT JOB TITLES MEAN History and Physical Notes * HPI (History of Present Illness) Category Sub-Category Detail Notes Category Notes History of Presenting Problem I've been pretty good Went to [place], went to [facility] for [facility] days, came home with $375 more than she took with her frustrated about requesting refill on risperidone 2 days ago pharmacy told her request was denied, she contacted our office and was told that message would be given to me, but I had not received request for refills as of time of this appt will refill all meds for 90 day supply with 1 additional refill, pt will f/u in 4 month Psychotherapy with Med eval Therapy with Med eval Psychotherapy with Medication management: Yes ?Psychotherapy done Time Spent Minute: 1 6 Min ?Type of therapy done: Supportive Therap y Examination Category Sub-Category Detail Notes Category Not es Psychiatry Appearance: well-groomed, well-nourished , ... Attitude: cooperative Psychomotor activity: within normal rang e Attention: good Degree of awareness of surroundings: wit hin normal limits Orientation: awake, alert and skyla ented x 3 Affect / mood: appropriate, flat af fect, reports mood is good and level Speech / language: appropriate pitch/mo dulation, clear and coherent, normal rate, volume, and articulation (RVR), proper grammar used Insight: good Judgement: good Thought process: intact Thought content: appropriate Perceptual disorders: no perceptual diso rder noted Suicidal ideation: none Intellectual functioning: no impairment noted Memory status: no impairment noted Delusions: no Hallucinations: no
--- OUTSIDE RECORDS SUMMARY | 2024-11-01 00:05 | XMS_ITS | Encounter Summary ---
Author Organization [facility] Address [address] [place] [address]. [place] [address] [place] [address] Care Team Providers Care Tipple Engineer Name Role Phone Unavailable Primary Care Provider Unavailabl e Encounter Details Date Type Department Care Team (Late st Contact Info) Description 08/18/2005 Abstract [facility] CONVERSION [address] [place] [address] , Generic Conversion, Social History Tobacco Use [...]
--- OUTSIDE RECORDS SUMMARY | 2024-11-01 00:05 | XMS_ITS | Clinical Summary ---
Author Organization [facility] Address [address] [place] [address] Care Team Providers Care Recreation Center Director Name Role Phone Unavailable Primary Care Provider Unavailabl e Source Comments [facility],non-owned Affiliates and Associated Physician Practices is amultiple site organization consisting of ambulatory clinics and hospital sitesin [place], [place], [place] and [place]. This disclosure is being madepursuant to the Care Everywhere program and may not contain all information available regarding this patient. Last updated 18.[facility] Social History Tobacco Use Types Packs/Day Years Used Date Smoking Tobacco: Never Assessed Sex and Gender Information Value Date Recorded Sex Assigned at Not on file Gender Identity Not on file Sexual Orientation Not on file Plan of Treatment Health Maintenance Due Date Last Done Comments BONE DENSITY TESTING 1950 COLOGUARD (AGES 45-75) - COL ON CA SCREENING 1950 COLON MONITORING 1950 COLONOSCOPY - COLON CA SCREENING 1950 CT COLONOGRAPHY - COLON CA SCREENING 1950 Colorectal Cancer Screening 1950 FIT - COLON CA SCREENING 1950 FLEX SIG - COLON CA SCREENING 1950 LIPID TESTING 1950 MAMMOGRAM 1950 HEPATITIS C SCREENING 06/19/1968 DTAP/TDAP/TD VACCINES (1 - Tdap) 1969 ZOSTER VACCINE (1 of 2) 2000 PNEUMOCOCCAL VACCINE 65+ (1 of 1 - PCV) 2015 DEPRESSION SCREENING 10/28/2023 COVID-19 VACCINE ( - 2023-2 5 season) 2024 INFLUENZA VACCINE (#1) 2024 Respiratory Syncytial Virus (RSV) Vaccine Pt: or over 60 yrs (1 - 1-dose 75+ series) 2025 HEPATITIS B VACCINE Aged Out No longe r eligible based on patient's age to complete this topic HIB VACCINE Aged Out No longer eligi ble based on patient's age to complete this topic HPV VACCINE Aged Out No longer eligi ble based on patient's age to complete this topic MENINGOCOCCAL VACCINE Aged Out No marlon yessenia eligible based on patient's age to complete this topic
--- OUTSIDE RECORDS SUMMARY | 2024-11-01 00:05 | XMS_ITS | Referral Summary ---
Author Organization [facility] Address [address] [place] [address] Care Team Providers Care Chaplain Resident Name Role Phone Unavailable Primary Care Provider Unavailabl e Source Comments [facility],non-owned Affiliates and Associated Physician Practices is amultiple site organization consisting of ambulatory clinics and hospital sitesin [place], [place], [place] and [place]. This disclosure is being madepursuant to the Care Everywhere program and may not contain all information available regarding this patient. Last updated 18.[facility] Social History Tobacco Use Types Packs/Day Years Used Date Smoking Tobacco: Never Assessed Sex and Gender Information Value Date Recorded Sex Assigned at Not on file Gender Identity Not on file Sexual Orientation Not on file Plan of Treatment Not on file
--- OUTSIDE RECORDS SUMMARY | 2024-11-01 00:05 | XMS_ITS | Encounter Summary ---
Author Organization [facility] Address [address] [place] [address]. [place], [place] [id number] [place] [address] Care Team Providers Care Community Services Manager Name Role Phone Unavailable Primary Care Provider Unavailabl e Encounter Details Date Type Department Care Team (Late st Contact Info) Description 02/21/1995 [place] [address] , Generic Conversion, Social History Tobacco Use [...]
--- OUTSIDE RECORDS SUMMARY | 2024-11-01 00:05 | XMS_ITS | Clinical Summary ---
Author Organization [facility] Address [address] [place] [id number] Care Team Providers Care Financial Service Professional Name Role Phone Yinka Jackson MD Primary Care Provider [phone] Allergies Active Allergy Reactions Criticality Noted Date [...] of hip 09/04/2012 Osteoarthritis of knee 06/19/2010 Encounters Date Type Department Care Team Description 10/15/2024 3:41 PM SANDFILL OPERATOR SURFACE - 10/15/2024 11:59 PM SANDFILL OPERATOR SURFACE Hospital Encounter [facility] [address] [place] [address] Discharge Disposition: Discharge to home or self care 08/28/2024 Orders Only [facility] at [address] [phone] Provider, MD Philly from Last 3 Months Immunizations Name Administration Dates Next Due Influenza, Quadrivalent, Hig h Dose, Preservative Free, Intrr 08/19/2020 Influenza, Split 08/06/2012 Influenza, Trivalent, Adjuvanted, Intramuscular 10/24/2017 Influenza, Trivalent, High D ose, Split, Preservative Free, Intramuscular 10/26/2019 Influenza, Trivalent, IM (MDV) 08/05/2014 Surgical History Surgery Date Site/Laterality Comments KNEE SURGERY JOINT REPLACEMENT HIP SURGERY Medical History Medical History Date Comments Hx Other Medical Hysterectomy Hx Other Medical left hip replac ement Hx Other Medical Bilateral tubal ligation Hx Other Medical left ovarian cy st removed Hx Other Medical left knee repla cement Hx Other Medical right knee repl acement Hx Other Medical MACEY/BSO Hypertension Anxiety Arthritis Osteoarthritis Family History Medical History Relation Name Comments Other Brother I bipolar; /Cance r - thymus; Cause of : Cancer - thymus Cancer Father Cancer; Pneumonia Father pneumonia; Caus e of : pneumonia Hypertension Mother Hypertension; Osteoarthritis Mother osteoarthriti s; Alzheimer's disease Other 1 Family h istory of Alzheimer's Disease; Cancer Other 2 Family history of Cancer; Depression Sister 1 I depression; Other Sister 2 II bipolar; Relation Name Status Comments Brother I Father Mother Other 1 Other 2 Sister 1 I Sister 2 II Social History Tobacco Use Types Packs/Day Years Used Date Smoking Tobacco: Former Smokeless Tobacco: Never Alcohol Use Standard Drinks/Week Comments Yes 0 (1 standard drink = 0.6 oz pur e alcohol) Comments Unknown Sex and Gender Information Value Date Recorded Sex Assigned at Not on file Legal Sex Female 2:17 AM SANDFILL OPERATOR SURFACE Gender Identity Not on file Sexual Orientation Not on file Obstetrics History Last Filed Vital Signs Vital Sign Reading [...] 06/22/2021 1:36 PM CDT Plan of Treatment Health Maintenance Due Date Last Done Comments Colon Cancer Screening-Colonoscopy 1950 Depression Screening 1950 Fall Risk Assessment 1950 Hepatitis C Screening 1950 Osteoporosis Screening-Bone Density Scan 1950 Pneumococcal vaccine 65+ (1 of 2 - PCV) 1956 DTaP/Tdap/Td Vaccine (1 - Tdap) 1961 Hepatitis B Screening 1968 Zoster Vaccine (1 of 2) 1969 Well Visit 65+ 2015 Covid-19 Vaccine (2 - Jansse n risk series) 01/29/2021 01/01/2021 Influenza Vaccine (#1) 2024 , 08/19/2020, 10/26/2019, Additional history exists Breast Cancer Screening-Mammogram 08/27/2025 08/27/2024, 03/07/2023, 03/07/2023 Procedures Procedure Name Priority Date/Time Associated Diagnosis Comments EGFR Routine 10/15/2024 11:09 AM SANDFILL OPERATOR SURFACE DIFFERENTIAL AUTO Routine 10/15/2024 11: 09 AM SANDFILL OPERATOR SURFACE CREATININE Routine 10/15/2024 11:09 AM SANDFILL OPERATOR SURFACE HEPATIC FUNCTION PANEL Routine 10/15/2024 11:09 AM SANDFILL OPERATOR SURFACE CBC WITH AUTO DIFFERENTIAL Routine 10/15/2024 11:09 AM SANDFILL OPERATOR SURFACE SCREENING MAMMOGRAM 2D BILATERAL Schedule Routine, Read Routine (OP Routine) 08/27/2024 9:00 AM CDT from Last 3 Months Results * (ABNORMAL) eGFR (10/15/2024 11:09 AM SANDFILL OPERATOR SURFACE) eGFR 58(L) >=60 mL/min/1. 73 m2 Comment: [...] reviewed 2021. Blood 10/15/2024 11:0 9 AM SANDFILL OPERATOR SURFACE 10/15/2024 5:21 PM SANDFILL OPERATOR SURFACE us Michael Hinds MD LAB BLOOD ORDERABLES Fin al Result [facility] [address] Department [place] [address] * Differential, auto (10/15/2024 11:09 AM SANDFILL OPERATOR SURFACE) Pathologist [facility] Neutrophil abs 4.7 1.5 - 6.5 K/cumm Imm gran abs 0.0 0.0 - 0.1 K/cumm [facility] Lymphocyte abs 1.3 0.8 - 3.3 K/cumm [facility] Monocyte abs 0.7 0.2 - 0.8 K/cumm [facility] Eosinophil abs 0.3 0.0 - 0.5 K/cumm [facility] Basophil abs 0.1 0.0 - 0.1 K/cumm [facility] Neutrophil pct 67.6 % [facility] Comment: Interpretive Data Percent cell count reference ranges are not reported, since discordance with absolute values may lead to misinterpretation of CBC data. Current Interpretive Data was last revised on 2018. Imm gran pct 0.4 % [facility] Comment: Interpretive Data Percent cell count reference ranges are not reported, since discordance with absolute values may lead to misinterpretation of CBC data. Current Interpretive Data was last revised on 2018. Lymphocyte pct 18.0 % [facility] Comment: Interpretive Data Percent cell count reference ranges are not reported, since discordance with absolute values may lead to misinterpretation of CBC data. Current Interpretive Data was last revised on 2018. Monocyte pct 9.7 % [facility] Comment: Interpretive Data Percent cell count reference ranges are not reported, since discordance with absolute values may lead to misinterpretation of CBC data. Current Interpretive Data was last revised on 2018. Eosinophil pct 3.6 % [facility] Comment: Interpretive Data Percent cell count reference ranges are not reported, since discordance with absolute values may lead to misinterpretation of CBC data. Current Interpretive Data was last revised on 2018. Basophil pct 0.7 % [facility] Comment: Interpretive Data Percent cell count reference ranges are not reported, since discordance with absolute values may lead to misinterpretation of CBC data. Current Interpretive Data was last revised on 2018. Blood 10/15/2024 11:0 9 AM SANDFILL OPERATOR SURFACE 10/15/2024 4:39 PM SANDFILL OPERATOR SURFACE Michael Hinds MD LAB BLOOD ORDERABLES Fin al Result [facility] [address] Department [place] [address] * (ABNORMAL) CBC with auto differential (10/15/2024 11:09 AM SANDFILL OPERATOR SURFACE) Pathologist [facility] WBC 7.0 3.8 - 9.9 K/cumm Hgb 11.9 11.9 - 15.5 g/dL [facility] Hct 37.9 35.6 - 45.5 % [facility] Plt 271 150 - 400 K/cumm [facility] MPV 10.0 9.1 - 12.3 fL [facility] RBC 3.84(L) 3.90 - 5.20 M/cumm [facility] MCV 98.7(H) 81.3 - 96.4 fL [facility] MCH 31.0 27.1 - 33.3 pg [facility] MCHC 31.4(L) 32.3 - 35.7 g/dL [facility] RDW CV 15.3(H) 11.1 - 14.9 % [facility] RDW SD 55.1(H) 35.7 - 48.1 fL [facility] NRBC abs 0.00 0.00 - 0.01 K/cumm [facility] Blood 10/15/2024 11:0 9 AM SANDFILL OPERATOR SURFACE 10/15/2024 4:39 PM SANDFILL OPERATOR SURFACE us Michael Hinds MD LAB BLOOD ORDERABLES Fin al Result Performing Organization Address [facility] Co de Phone Number [facility] [address] [facility] [place] [address] * Creatinine (10/15/2024 11:09 AM SANDFILL OPERATOR SURFACE) [facility] Creatinine 1.02 0.60 - 1.10 mg/dL Blood 10/15/2024 11:0 9 AM SANDFILL OPERATOR SURFACE 10/15/2024 4:40 PM SANDFILL OPERATOR SURFACE Michael Hinds MD LAB BLOOD ORDERABLES Fin al Result Performing Organization Address [facility] Co de Phone Number [facility] [address] Department of [employer] [place], [place] [id number] * Hepatic function panel (10/15/2024 11:09 AM SANDFILL OPERATOR SURFACE) Bilirubin, total 0.5 0.1 - 1.2 mg/dL Bilirubin, direct 0.2 0.1 - 0.3 mg/dL [facility] Protein, pl 6.6 6.5 - 8.5 g/dL [facility] Albumin 3.8 3.5 - 5.0 g/dL [facility] Alk phos 55 40 - 130 Units/L [facility] ALT 18 7 - 45 Units/L [facility] AST 22 10 - 45 Units/L [facility] Blood 10/15/2024 11:0 9 AM SANDFILL OPERATOR SURFACE 10/15/2024 4:40 PM SANDFILL OPERATOR SURFACE Michael Hinds MD LAB BLOOD ORDERABLES Fin al Result [facility] [address] Department [place] [address] * Screening Mammogram 2D Bilateral (08/27/2024 9:00 AM CDT) Anatomical Region Laterality Modality Breast Bilateral Mammography Historical Provider IMG MAMMO PROCEDURES Hamida l Result from Last [address] [place] [address] [place] [address] MEDICARE APJeT Member Subscriber Plan / Payer (Ef fective 2005-Present) Name:Esther Camarillo Member ID:[id number] Relation to Subscriber:Self Name:Esther Camarillo Subscriber ID:[id number] Payer ID:[id number] Group ID:Not on file Type:MEDICARE TRADITIONAL Address: [address] [facility] MEDICARE RAILROAD [facility] MEDIC[employer]ILRO[employer] Care Teams Financial Service Professional Relationship Specialty Start Date End Date Yinka Jackson MD PCP - General Internal Medicine 12/27/21
--- OUTSIDE RECORDS SUMMARY | 2024-11-01 00:05 | XMS_ITS | Encounter Summary ---
Author Organization [facility] Address [address] [place] [address]. [place], [place] [id number] [place] [address] Care Team Providers Care Windows Vmware Administrator Name Role Phone Unavailable Primary Care Provider Unavailabl e Encounter Details Date Type Department Care Team (Late st Contact Info) Description 03/06/1995 [place] [address] , Generic Conversion, Social History Tobacco Use [...]
--- OUTSIDE RECORDS SUMMARY | 2024-11-01 00:05 | XMS_ITS | Encounter Summary ---
Author Organization [facility] Address [address] [place] [address]. [place] [address] [place] [address] Care Team Providers Care Publications Writer Name Role Phone Unavailable Primary Care Provider Unavailabl e Encounter Details Date Type Department Care Team (Late st Contact Info) Description 02/19/2002 Abstract [facility] [place] [place], [place] [id number] Stephen Coe MD [address] [id number] Social History Tobacco Use Types Packs/Day Years [...]
--- OUTSIDE RECORDS SUMMARY | 2024-11-01 00:05 | XMS_ITS | Encounter Summary ---
Author Organization [facility] Address [address] [place] [address] Care Team Providers Care Gre Tutor Name Role Phone Yinka Jackson MD Primary Care Provider [phone] Reason for Referral * Diagnostic Imaging (Routine) - Closed Specialty Diagnoses / Procedures Referred By Contac t Referred To Contact Procedures Screening Mammogram 2D Bilateral Philly Benjamin MD [address] [place] [address] Phone: tel: Referral ID Status Reason Start Date Expiration Date Visits Re quested Visits Authorized [id number] Closed 08/28/2024 09/27/2025 1 1 Encounter Details Date Type Department Care Team (Late st Contact Info) Description 08/28/2024 Orders Only [facility] at [address] [phone] Philly Benjamin MD [address] [place] [address] Social History Tobacco Use Types Packs/Day Years Used Date Smoking Tobacco: Former Smokeless Tobacco: Never Alcohol Use Standard Drinks/Week Comments Yes 0 (1 standard drink = 0.6 oz pur e alcohol) Comments Unknown Sex and Gender Information Value Date Recorded Sex Assigned at Not on file Legal Sex Female 2:17 AM LABOR TRAINER Gender Identity Not on file Sexual Orientation Not on file documented as of this encounter Plan of Treatment Not on file documented as of this encounter Procedures Procedure Name Priority Date/Time Associated Diagnosis Comments SCREENING MAMMOGRAM 2D BILATERAL Schedule Routine, Read Routine (OP Routine) 08/27/2024 9:00 AM CDT documented in this encounter Results * Screening Mammogram 2D Bilateral (08/27/2024 9:00 AM CDT) Anatomical Region Laterality Modality Breast Bilateral Mammography us Historical Provider MD BRAGA MAMMO PROCEDURES Hamida l Result documented in this encounter Visit Diagnoses Not on filedocumented in this encounter Care Teams Gre Tutor Relationship Specialty Start Date End Date Yinka Jackson MD PCP - General Internal Medicine 12/27/21 documented as of this encounter
--- OUTSIDE RECORDS SUMMARY | 2024-11-01 00:05 | XMS_ITS | Encounter Summary ---
Author Organization [facility] Address [address] [place] [address] Care Team Providers Care Developer Architect Name Role Phone Yinka Jackson MD Primary Care Provider [phone] Encounter Details Date Type Department Care Team (Latest Contact Info) Description 10/15/2024 3:41 PM CONSULTANT LUXURY AND AUTO. VICE PRESIDENT [employer] (EX ) - 10/15/2024 11:59 PM CONSULTANT LUXURY AND AUTO. VICE PRESIDENT [employer] (EX ) Hospital Encounter [id number] [place] [address] Discharge Disposition: Discharge to home or self care Social History Tobacco Use Types Packs/Day Years Used Date Smoking Tobacco: Former Smokeless Tobacco: Never Alcohol Use Standard Drinks/Week Comments Yes 0 (1 standard drink = 0.6 oz pur e alcohol) Comments Unknown Sex and Gender Information Value Date Recorded Sex Assigned at Not on file Legal Sex Female 2:17 AM CONSULTANT LUXURY AND AUTO. VICE PRESIDENT [employer] (EX ) Gender Identity Not on file Sexual Orientation Not on file documented as of this encounter Medications at Time of Discharge atorvastatin (LIPITOR) 20 mg tablet 20 mg 05/03/2021 citalopram (CeleXA) 20 mg tablet take 1 tablet (20MG) by oral route every day 90 0 08/06/2012 cycloSPORINE (RESTASIS) 0.05 % ophthalmic emulsion 1 drop 2 (two) times a day diclofenac DR (VOLTAREN) 75 mg EC tablet take 1 tablet (75MG) by oral route 2 times every day 0 08/06/[address] (DEPAKOTE) 250 mg EC tablet take 2 Tablet (500MG) by oral route 2 times every day 360 0 08/06/2012 DOXYCYCLINE HYCLATE 100 mg capsule 0 03/17/2018 ergocalciferol (VITAMIN D) 50,000 unit capsule TAKE 1 CAPSULE BY MOUTH WEEKLY 05/01/2021 ferrous sulfate (IRON) 325 mg (65 mg iron) capsule, extended release take 1 by Oral route every day 0 08/06/2012 folic acid (FOLVITE) 1 mg tablet take 2 Tablet (2MG) by oral route every day 0 08/06/2012 latanoprost (XALATAN) 0.005 % ophthalmic solution 05/19/2021 levothyroxine (SYNTHROID, LEVOTHROID) 100 mcg tablet take 1 tablet (100MCG) by oral route every day 90 0 08/06/2012 lisinopril (PRINIVIL,ZESTRIL ) 2.5 mg tablet take 1 tablet by oral route every day 0 0 06/19/2013 methotrexate 2.5 mg tablet take 7 Tablet (17.5MG) by oral route every week 0 08/06/2012 multivitamin with minerals tablet oxybutynin (DITROPAN) 5 mg tablet take 1 tablet (5MG) by oral route 3 times every day 270 0 08/06/2012 risperiDONE (RisperDAL) 0.5 mg tablet take 1 Tablet (0.5MG) by oral route every bedtime 90 0 08/06/2012 torsemide (DEMADEX) 10 mg tablet take 1 tablet by oral route every day 0 0 06/19/2013 documented as of this encounter Discharge Disposition Disposition Code Departure Means Destination Discharge to home or self care documented in this encounter Plan of Treatment Not on file documented as of this encounter Procedures Procedure Name Priority Date/Time Associated Diagnosis Comments EGFR Routine 10/15/2024 11:09 AM CONSULTANT LUXURY AND AUTO. VICE PRESIDENT [employer] (EX ) DIFFERENTIAL AUTO Routine 10/15/2024 11: 09 AM CONSULTANT LUXURY AND AUTO. VICE PRESIDENT [employer] (EX ) CBC WITH AUTO DIFFERENTIAL Routine 10/15/2024 11:09 AM CONSULTANT LUXURY AND AUTO. VICE PRESIDENT [employer] (EX ) CREATININE Routine 10/15/2024 11:09 AM CONSULTANT LUXURY AND AUTO. VICE PRESIDENT [employer] (EX ) HEPATIC FUNCTION PANEL Routine 10/15/2024 11:09 AM CONSULTANT LUXURY AND AUTO. VICE PRESIDENT [employer] (EX ) documented in this encounter Results * (ABNORMAL) eGFR (10/15/2024 11:09 AM CONSULTANT LUXURY AND AUTO. VICE PRESIDENT [employer] (EX )) [facility] eGFR 58(L) >=60 mL/min/1. 73 m2 Comment: [...] reviewed 2021. Blood 10/15/2024 11:0 9 AM CONSULTANT LUXURY AND AUTO. VICE PRESIDENT [employer] (EX ) 10/15/2024 5:21 PM CONSULTANT LUXURY AND AUTO. VICE PRESIDENT [employer] (EX ) us Michael Hinds MD LAB BLOOD ORDERABLES Fin al Result [facility] [address] Department [place] [address] * Differential, auto (10/15/2024 11:09 AM CONSULTANT LUXURY AND AUTO. VICE PRESIDENT [employer] (EX )) Pathologist [facility] Neutrophil abs 4.7 1.5 - 6.5 K/cumm Imm gran abs 0.0 0.0 - 0.1 K/cumm [facility] Lymphocyte abs 1.3 0.8 - 3.3 K/cumm [facility] Monocyte abs 0.7 0.2 - 0.8 K/cumm [facility] Eosinophil abs 0.3 0.0 - 0.5 K/cumm [facility] Basophil abs 0.1 0.0 - 0.1 K/cumm [facility] Neutrophil pct 67.6 % [facility] Comment: Interpretive Data Percent cell count reference ranges are not reported, since discordance with absolute values may lead to misinterpretation of CBC data. Current Interpretive Data was last revised on 2018. Imm gran pct 0.4 % [facility] Comment: Interpretive Data Percent cell count reference ranges are not reported, since discordance with absolute values may lead to misinterpretation of CBC data. Current Interpretive Data was last revised on 2018. Lymphocyte pct 18.0 % [facility] Comment: Interpretive Data Percent cell count reference ranges are not reported, since discordance with absolute values may lead to misinterpretation of CBC data. Current Interpretive Data was last revised on 2018. Monocyte pct 9.7 % [facility] Comment: Interpretive Data Percent cell count reference ranges are not reported, since discordance with absolute values may lead to misinterpretation of CBC data. Current Interpretive Data was last revised on 2018. Eosinophil pct 3.6 % [facility] Comment: Interpretive Data Percent cell count reference ranges are not reported, since discordance with absolute values may lead to misinterpretation of CBC data. Current Interpretive Data was last revised on 2018. Basophil pct 0.7 % [facility] Comment: Interpretive Data Percent cell count reference ranges are not reported, since discordance with absolute values may lead to misinterpretation of CBC data. Current Interpretive Data was last revised on 2018. Blood 10/15/2024 11:0 9 AM CONSULTANT LUXURY AND AUTO. VICE PRESIDENT [employer] (EX ) 10/15/2024 4:39 PM CONSULTANT LUXURY AND AUTO. VICE PRESIDENT [employer] (EX ) us Michael Hinds MD LAB BLOOD ORDERABLES Fin al Result [facility] [address] Department [place] [address] * Creatinine (10/15/2024 11:09 AM CONSULTANT LUXURY AND AUTO. VICE PRESIDENT [employer] (EX )) Creatinine 1.02 0.60 - 1.10 mg/dL Blood 10/15/2024 11:0 9 AM CONSULTANT LUXURY AND AUTO. VICE PRESIDENT [employer] (EX ) 10/15/2024 4:40 PM CONSULTANT LUXURY AND AUTO. VICE PRESIDENT [employer] (EX ) Michael Hinds MD LAB BLOOD ORDERABLES Fin al Result Performing Organization Address [facility] Co de Phone Number [facility] [address] Department [place] [address] * Hepatic function panel (10/15/2024 11:09 AM CONSULTANT LUXURY AND AUTO. VICE PRESIDENT [employer] (EX )) [facility] Bilirubin, total 0.5 0.1 - 1.2 mg/dL Bilirubin, direct 0.2 0.1 - 0.3 mg/dL [facility] Protein, pl 6.6 6.5 - 8.5 g/dL [facility] Albumin 3.8 3.5 - 5.0 g/dL [facility] Alk phos 55 40 - 130 Units/L [facility] ALT 18 7 - 45 Units/L [facility] AST 22 10 - 45 Units/L [facility] Blood 10/15/2024 11:0 9 AM CONSULTANT LUXURY AND AUTO. VICE PRESIDENT [employer] (EX ) 10/15/2024 4:40 PM CONSULTANT LUXURY AND AUTO. VICE PRESIDENT [employer] (EX ) Michael Hinds MD LAB BLOOD ORDERABLES Fin al Result Performing Organization Address [facility] Co de Phone Number [facility] [address] Department [place] [address] * (ABNORMAL) CBC with auto differential (10/15/2024 11:09 AM CONSULTANT LUXURY AND AUTO. VICE PRESIDENT [employer] (EX )) [facility] WBC 7.0 3.8 - 9.9 K/cumm Hgb 11.9 11.9 - 15.5 g/dL [facility] Hct 37.9 35.6 - 45.5 % [facility] Plt 271 150 - 400 K/cumm [facility] MPV 10.0 9.1 - 12.3 fL [facility] RBC 3.84(L) 3.90 - 5.20 M/cumm [facility] MCV 98.7(H) 81.3 - 96.4 fL [facility] MCH 31.0 27.1 - 33.3 pg [facility] MCHC 31.4(L) 32.3 - 35.7 g/dL [facility] RDW CV 15.3(H) 11.1 - 14.9 % [facility] RDW SD 55.1(H) 35.7 - 48.1 fL [facility] NRBC abs 0.00 0.00 - 0.01 K/cumm [facility] Blood 10/15/2024 11:0 9 AM CONSULTANT LUXURY AND AUTO. VICE PRESIDENT [employer] (EX ) 10/15/2024 4:39 PM CONSULTANT LUXURY AND AUTO. VICE PRESIDENT [employer] (EX ) Michael Hinds MD LAB BLOOD ORDERABLES Fin al Result [facility] [address] Department [place] [address] documented in this encounter Visit Diagnoses Not on filedocumented in this encounter Care Teams Developer Architect Relationship Specialty Start Date End Date Yinka Jackson MD PCP - General Internal Medicine 12/27/21 documented as of this encounter
--- OUTSIDE RECORDS SUMMARY | 2024-11-01 00:05 | XMS_ITS | Encounter Summary ---
Author Organization [facility] Address [address] [place] [address]. [place], [place] [id number] [place] [address] Care Team Providers Care Olive Knocker Name Role Phone Unavailable Primary Care Provider Unavailabl e Encounter Details Date Type Department Care Team (Late st Contact Info) Description 05/13/1996 [place] [address] , Generic Conversion, Social History Tobacco Use [...]
--- OUTSIDE RECORDS SUMMARY | 2024-11-01 00:06 | XMS_ITS | Encounter Summary ---
Author Organization [facility] Healthcare Address [address] [place] [address] Care Team Providers Care Multiple Sclerosis Nurse Name Role Phone Yinka Jackson MD Primary Care Provider [phone] Reason for Visit * Diagnostic Imaging (Routine) - Closed Specialty Diagnoses / Procedures Referred By Contac t Referred To Contact Diagnoses Pain Procedures XR Spine Lumbar Routine XR Spine Lumbar Ap Lat Flex Ext min 4 Views Yinka Jackson MD Phone: tel: fax: [address] [phone] Referral ID Status Reason Start Date Expiration Date Visits Re quested Visits Authorized [id number] Closed 12/27/2021 01/26/2023 1 1 Encounter Details Date Type Department Care Team (Latest Contact Info) Description 12/27/2021 12:27 PM EDUCATIONAL COORDINATOR - 12/27/2021 11:59 PM EDUCATIONAL COORDINATOR Hospital Encounter [facility] - Imaging [address] [place] [phone] Pain Discharge Disposition: Discharge to home or self care Social History Tobacco Use Types Packs/Day Years Used Date Smoking Tobacco: Former Smokeless Tobacco: Never Alcohol Use Standard Drinks/Week Comments Yes 0 (1 standard drink = 0.6 oz pur e alcohol) Comments Unknown Sex and Gender Information Value Date Recorded Sex Assigned at Not on file Legal Sex Female 2:17 AM EDUCATIONAL COORDINATOR Gender Identity Not on file Sexual Orientation [...] Procedure Name Priority Date/Time Associated Diagnosis Comments XR SPINE LUMBAR ROUTINE Schedule Routine, Read Routine (OP Routine) 12/27/2021 12:47 PM EDUCATIONAL COORDINATOR Pain documented in this encounter Results * XR Spine Lumbar Routine (12/27/2021 12:47 PM EDUCATIONAL COORDINATOR) Anatomical Region Laterality Modality L-spine N/A Computed Radiogr aphy 12/27/2021 12:5 6 PM EDUCATIONAL COORDINATOR Impressions 12/27/2021 12:56 PM EDUCATIONAL COORDINATOR 1. ??Multilevel lumbar spine degenerative disc disease most pronounced and severe L4-L5 with severe inferior lumbar facet arthropathy. Electronically signed by: Al Corral M.D. Narrative 12/27/2021 12:56 PM EDUCATIONAL COORDINATOR EXAMINATION: XR SPINE LUMBAR ROUTINE HISTORY: Back pain FINDINGS: 5 view examination of the lumbar spine obtained without prior comparison. Minimal stepwise retrolisthesis L1-L2 and L2-L3. ??Multilevel lumbar spine degenerative disc disease is most pronounced and severe L4-L5. Severe inferior lumbar facet arthropathy. ??No acute fracture. ??The abdominal aorta is diffusely atherosclerotic. Left hip arthroplasty partially imaged. Procedure Note Al Corral MD - 12/27/2021 EXAMINATION: XR SPINE LUMBAR ROUTINE HISTORY: Back pain FINDINGS: 5 view examination of the lumbar spine obtained without prior comparison. Minimal stepwise retrolisthesis L1-L2 and L2-L3. Multilevel lumbar spine degenerative disc disease is most pronounced and severe L4-L5. Severe inferior lumbar facet arthropathy. No acute fracture. The abdominal aorta is diffusely atherosclerotic. Left hip arthroplasty partially imaged. IMPRESSION: 1. Multilevel lumbar spine degenerative disc disease most pronounced and severe L4-L5 with severe inferior lumbar facet arthropathy. Electronically signed by: Al Corral M.D. Yinka Jackson MD IMG XR PROCEDURES Final Resu lt documented in this encounter Visit Diagnoses Diagnosis Pain Generalized pain documented in this encounter Care Teams Multiple Sclerosis Nurse Relationship Specialty Start Date End Date Yinka Jackson MD PCP - General Internal Medicine 12/27/21 documented as of this encounter
--- OUTSIDE RECORDS SUMMARY | 2024-11-01 00:06 | XMS_ITS | Encounter Summary ---
Author Organization [facility] Healthcare Address [address] [place] [id number] Care Team Providers Care Inspector [employer] Name Role Phone Michael Hinds MD Primary Care Provider + Reason for Referral * Diagnostic Imaging (Routine) - Closed Specialty Diagnoses / Procedures Referred By Contac t Referred To Contact Diagnoses Aftercare following bilateral knee joint replacement surgery Procedures XR Knee Right 3 Views Antwon Chavez MD Phone: tel: fax: [facility] Referral ID Status Reason Start Date Expiration Date Visits Re quested Visits Authorized [id number] Closed 05/06/2018 11/15/2019 1 1 * Diagnostic Imaging (Routine) - Closed Specialty Diagnoses / Procedures Referred By Contac t Referred To Contact Diagnoses Bilateral hip pain Procedures XR Hips Bilateral 3 or 4 Views W Pelvis Antwon Chavez MD Phone: tel: fax: [facility] Referral ID Status Reason Start Date Expiration Date Visits Re quested Visits Authorized [id number] Closed 05/06/2018 11/15/2019 1 1 * Diagnostic Imaging (Routine) - Closed Specialty Diagnoses / Procedures Referred By Contac t Referred To Contact Diagnoses Aftercare following bilateral knee joint replacement surgery Procedures XR Knee Left 3 Views Antwon Chavez MD Phone: tel: fax: [facility] Referral ID Status Reason Start Date Expiration Date Visits Re quested Visits Authorized [id number] Closed 05/06/2018 11/15/2019 1 1 Reason for Visit * Diagnostic Imaging (Routine) - Closed Specialty Diagnoses / Procedures Referred By Parmjit t Referred To Contact Diagnoses Aftercare following bilateral knee joint replacement surgery Procedures XR Knee Left 3 Views Antwon Chavez MD Phone: tel: fax: [facility] Referral ID Status Reason Start Date Expiration Date Visits Re quested Visits Authorized [id number] Closed 05/06/2018 11/15/2019 1 1 Encounter Details Date Type Department Care Team (Latest Contact Info) Description 05/07/2018 9:50 AM CDT - 05/07/2018 11:59 PM CDT Hospital Encounter [facility] [address] [place] [address] Aftercare following bilateral knee joint replacement surgery; Bilateral hip pain Discharge Disposition: Discharge to home or self care Social History Tobacco Use Types Packs/Day Years Used Date Smoking Tobacco: Former Smokeless Tobacco: Former Alcohol Use Standard Drinks/Week Comments Yes 0 (1 standard drink = 0.6 oz pur e alcohol) Comments Unknown Sex and Gender Information Value Date Recorded Sex Assigned at Not on file 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 Gender Identity Not on file Sexual Orientation Not on file documented as of this encounter Medications at Time of Discharge citalopram (CeleXA) 20 mg tablet take 1 tablet (20MG) by oral route every day 90 0 08/06/[address] (VOLTAREN) 75 mg EC tablet take 1 tablet (75MG) by oral route 2 times every day 0 08/06/[address] (DEPAKOTE) 250 mg EC tablet take 2 Tablet (500MG) by oral route 2 times every day 360 0 08/06/2012 DOXYCYCLINE HYCLATE 100 mg capsule 0 03/17/2018 ferrous sulfate (IRON) 325 mg (65 mg iron) capsule, extended release take 1 by Oral route every day 0 08/06/2012 folic acid (FOLVITE) 1 mg tablet take 2 Tablet (2MG) by oral route every day 0 08/06/2012 levothyroxine (SYNTHROID, LEVOTHROID) 100 mcg tablet take [...] oral route every day 0 0 06/19/2013 meloxicam (MOBIC) 15 mg tablet Take 1 tablet (15 mg total) by mouth daily. 30 tablet 2 05/07/2018 06/06/2018 benzonatate (TESSALON) 100 mg capsuleIndication s:Cough TK ONE C PO TID PRF COUGH 0 03/14/2018 06/22/2021 cephalexin (KEFLEX) 500 mg capsule 4 times daily. 08/08/2010 06/22/2021 levothyroxine sodium (TIROSINT) 100 mcg capsule take 1 capsule by oral route every day 0 0 06/19/2013 06/22/2021 lisinopril (PRINIVIL,ZESTRIL ) 2.5 mg tablet take 1 tablet (2.5MG) by oral route every day 90 0 03/26/2012 06/22/2021 omega 7-dut-lga-fish oil 300-1,000 mg capsule 06/22/2021 simvastatin (ZOCOR) 80 mg tablet 06/22/2021 TRAVATAN Z 0.004 % drops 1 02/12/2018 06/22/2021 documented as of this encounter Discharge Disposition Disposition Code Departure Means Destination Discharge to home or self care documented in this encounter Plan of Treatment Not on file documented as of this encounter Procedures Procedure Name Priority Date/Time Associated Diagnosis Comments XR KNEE LEFT 3 VIEWS Schedule Routine, Read Routine (OP Routine) 05/07/2018 10:25 AM CDT Aftercare following bilateral knee joint replacement surgery XR KNEE RIGHT 3 VIEWS Schedule Routine, Read Routine (OP Routine) 05/07/2018 10:24 AM CDT Aftercare following bilateral knee joint replacement surgery XR HIPS BILATERAL 3 OR 4 VIEWS W PELVIS Schedule Routine, Read Routine (OP Routine) 05/07/2018 10:24 AM CDT Bilateral hip pain documented in this encounter Results * XR Knee Left 3 Views (05/07/2018 10:25 AM CDT) Anatomical Region Laterality Modality Lower Extremities, Knee Left Computed Radiography 05/07/2018 10:3 7 AM CDT Impressions 05/07/2018 10:37 AM CDT 1. ??Unchanged bilateral 2 component knee arthroplasties in near-anatomic position. 2. 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 3. ??Unchanged mild right hip osteoarthritis. Electronically signed by: Dick Hung M.D. Narrative 05/07/2018 10:37 AM CDT EXAMINATION: 1. ??Hips bilateral 3-4 views. 2. ??Left knee 3 views. 3. ??Right knee 3 views. HISTORY: ??Bilateral knee and bilateral hip osteoarthritis, left hip and bilateral knee arthroplasty follow-up FINDINGS: 3 views of each knee are submitted for interpretation. Comparison is made to the prior examinations on 11/28/2016. ??There are unchanged bilateral 2 component knee arthroplasties in near-anatomic position. ??There is no fracture. 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 ??There are small bilateral knee effusions. AP view of the pelvis and crosstable lateral views of each hip are submitted for interpretation. ??Comparison is made to the prior examination on 10/04/2016. ??There is an unchanged left total hip arthroplasty with unchanged mild asymmetric liner wear. ??Mild osteolysis adjacent to the superior lateral aspect of the acetabular component is unchanged. 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 ??There is unchanged mild right hip osteoarthritis. ??No fracture is seen. ??There is a transitional lumbosacral segment on the right. Procedure Note Dick Hung MD - 05/07/2018 EXAMINATION: 1. Hips bilateral 3-4 views. 2. Left knee 3 views. 3. Right knee 3 views. HISTORY: Bilateral knee and bilateral hip osteoarthritis, left hip and bilateral knee arthroplasty follow-up FINDINGS: 3 views of each knee are submitted for interpretation. Comparison is made to the prior examinations on 11/28/2016. There are unchanged bilateral 2 component knee arthroplasties in near-anatomic position. There is no fracture. 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 There are small bilateral knee effusions. AP view of the pelvis and crosstable lateral views of each hip are submitted for interpretation. Comparison is made to the prior examination on 10/04/2016. There is an unchanged left total hip arthroplasty with unchanged mild asymmetric liner wear. Mild osteolysis adjacent to the superior lateral aspect of the acetabular component is unchanged. 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 There is unchanged mild right hip osteoarthritis. No fracture is seen. There is a transitional lumbosacral segment on the right. IMPRESSION: 1. Unchanged bilateral 2 component knee arthroplasties in near-anatomic position. 2. 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 3. Unchanged mild right hip osteoarthritis. Electronically signed by: Dick Hung M.D. Antwon Chavez MD IMG XR PROCEDURES Final Res ult * XR Knee Right 3 Views (05/07/2018 10:24 AM CDT) Anatomical Region Laterality Modality Lower Extremities, Knee Right Computed Radiography 05/07/2018 10:3 7 AM CDT Impressions 05/07/2018 10:37 AM CDT 1. ??Unchanged bilateral 2 component knee arthroplasties in near-anatomic position. 2. 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 3. ??Unchanged mild right hip osteoarthritis. Electronically signed by: Dick Hung M.D. Narrative 05/07/2018 10:37 AM CDT EXAMINATION: 1. ??Hips bilateral 3-4 views. 2. ??Left knee 3 views. 3. ??Right knee 3 views. HISTORY: ??Bilateral knee and bilateral hip osteoarthritis, left hip and bilateral knee arthroplasty follow-up FINDINGS: 3 views of each knee are submitted for interpretation. Comparison is made to the prior examinations on 11/28/2016. ??There are unchanged bilateral 2 component knee arthroplasties in near-anatomic position. ??There is no fracture. 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 ??There are small bilateral knee effusions. AP view of the pelvis and crosstable lateral views of each hip are submitted for interpretation. ??Comparison is made to the prior examination on 10/04/2016. ??There is an unchanged left total hip arthroplasty with unchanged mild asymmetric liner wear. ??Mild osteolysis adjacent to the superior lateral aspect of the acetabular component is unchanged. 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 ??There is unchanged mild right hip osteoarthritis. ??No fracture is seen. ??There is a transitional lumbosacral segment on the right. Procedure Note Dick Hung MD - 05/07/2018 EXAMINATION: 1. Hips bilateral 3-4 views. 2. Left knee 3 views. 3. Right knee 3 views. HISTORY: Bilateral knee and bilateral hip osteoarthritis, left hip and bilateral knee arthroplasty follow-up FINDINGS: 3 views of each knee are submitted for interpretation. Comparison is made to the prior examinations on 11/28/2016. There are unchanged bilateral 2 component knee arthroplasties in near-anatomic position. There is no fracture. 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 There are small bilateral knee effusions. AP view of the pelvis and crosstable lateral views of each hip are submitted for interpretation. Comparison is made to the prior examination on 10/04/2016. There is an unchanged left total hip arthroplasty with unchanged mild asymmetric liner wear. Mild osteolysis adjacent to the superior lateral aspect of the acetabular component is unchanged. 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 There is unchanged mild right hip osteoarthritis. No fracture is seen. There is a transitional lumbosacral segment on the right. IMPRESSION: 1. Unchanged bilateral 2 component knee arthroplasties in near-anatomic position. 2. 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 3. Unchanged mild right hip osteoarthritis. Electronically signed by: Dick Hung M.D. us Antwon Chavez MD IMG XR PROCEDURES Final Res ult * XR Hips Bilateral 3 or 4 Views W Pelvis (05/07/2018 10:24 AM CDT) Anatomical Region Laterality Modality Lower Extremities, Hip, Pelvis Bilateral C omputed Radiography 05/07/2018 10:3 7 AM CDT Impressions 05/07/2018 10:37 AM CDT 1. ??Unchanged bilateral 2 component knee arthroplasties in near-anatomic position. 2. 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 3. ??Unchanged mild right hip osteoarthritis. Electronically signed by: Dick Hung M.D. Narrative 05/07/2018 10:37 AM CDT EXAMINATION: 1. ??Hips bilateral 3-4 views. 2. ??Left knee 3 views. 3. ??Right knee 3 views. HISTORY: ??Bilateral knee and bilateral hip osteoarthritis, left hip and bilateral knee arthroplasty follow-up FINDINGS: 3 views of each knee are submitted for interpretation. Comparison is made to the prior examinations on 11/28/2016. ??There are unchanged bilateral 2 component knee arthroplasties in near-anatomic position. ??There is no fracture. 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 ??There are small bilateral knee effusions. AP view of the pelvis and crosstable lateral views of each hip are submitted for interpretation. ??Comparison is made to the prior examination on 10/04/2016. ??There is an unchanged left total hip arthroplasty with unchanged mild asymmetric liner wear. ??Mild osteolysis adjacent to the superior lateral aspect of the acetabular component is unchanged. 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 ??There is unchanged mild right hip osteoarthritis. ??No fracture is seen. ??There is a transitional lumbosacral segment on the right. Procedure Note Dick Hung MD - 05/07/2018 EXAMINATION: 1. Hips bilateral 3-4 views. 2. Left knee 3 views. 3. Right knee 3 views. HISTORY: Bilateral knee and bilateral hip osteoarthritis, left hip and bilateral knee arthroplasty follow-up FINDINGS: 3 views of each knee are submitted for interpretation. Comparison is made to the prior examinations on 11/28/2016. There are unchanged bilateral 2 component knee arthroplasties in near-anatomic position. There is no fracture. 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 There are small bilateral knee effusions. AP view of the pelvis and crosstable lateral views of each hip are submitted for interpretation. Comparison is made to the prior examination on 10/04/2016. There is an unchanged left total hip arthroplasty with unchanged mild asymmetric liner wear. Mild osteolysis adjacent to the superior lateral aspect of the acetabular component is unchanged. 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 There is unchanged mild right hip osteoarthritis. No fracture is seen. There is a transitional lumbosacral segment on the right. IMPRESSION: 1. Unchanged bilateral 2 component knee arthroplasties in near-anatomic position. 2. 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 3. Unchanged mild right hip osteoarthritis. Electronically signed by: Dick Hung M.D. Antwon Chavez MD IMG XR PROCEDURES Final Res ult documented in this encounter Visit Diagnoses Diagnosis Aftercare following bilateral knee joint replacement surgery Bilateral hip pain Pain in joint, pelvic region and thigh documented in this encounter Care Teams Inspector [employer] Reconditioning Relationship Specialty Start Date End Date Michael Hinds MD [address] [facility] [address] [place] [address] PCP - General 07/10/13 12/26/21 documented as of this encounter
--- OUTSIDE RECORDS SUMMARY | 2024-11-01 00:06 | XMS_ITS | Encounter Summary ---
Author Organization [facility] Address [address] [place] [address] Phone Care Team Providers Care Kitchen Work Supervisor Name Role Phone Michael Hinds MD Primary Care Provider + Reason for Referral * Diagnostic Imaging (Routine) - Closed Specialty Diagnoses / Procedures Referred By Contac t Referred To Contact Diagnoses Aftercare following left hip joint replacement surgery Procedures XR Hip Left 2 or 3 Views W Pelvis Janes Resendiz PA Phone: tel: fax: [address] [address] Referral ID Status Reason Start Date Expiration Date Visits Re quested Visits Authorized [id number] Closed 06/09/2021 07/09/2022 1 1 Reason for Visit * Reason Comments Follow-up Encounter Details Date Type Department Care Team (Late st Contact Info) Description 06/22/2021 1:30 PM CDT Office Visit [facility] Orthopaedic Surgery [facility] [address] [place] [address] Janes Resendiz PA [address] [place] [address] [address] [place] [address] Aftercare following left hip joint replacement surgery Social History Tobacco Use Types Packs/Day Years Used Date Smoking Tobacco: Former Smokeless Tobacco: Never Alcohol Use Standard Drinks/Week Comments Yes 0 (1 standard drink = 0.6 oz pur e alcohol) Comments Unknown Sex and Gender Information Value Date Recorded Sex Assigned at Not on file Legal Sex Female 2:17 AM [employer] Gender Identity Not on file Sexual Orientation Not on file documented as of this encounter Last Filed Vital Signs Vital Sign Reading Time Taken Comments Blood Pressure - - Pulse - - Temperature - - Respiratory Rate - - Oxygen Saturation - - Inhaled Oxygen Concentration - - Weight 111.5 kg (245 lb 12.8 oz) 06/22/2021 1:36 PM CDT Height 165.1 cm (5' 5 ) 06/22/2021 1:36 PM CDT Body Mass Index 40.9 06/22/2021 1:36 PM CDT documented in this encounter Progress Notes * Janes Resendiz PA - 06/22/2021 1:30 PM CDT NEW PATIENT VISIT CHIEF COMPLAINT: Chief Complaint Patient presents with ??? Left Hip - Follow-up HISTORY OF PRESENT ILLNESS: 70-year-old female known to the service for previous left total hip arthroplasty performed by Dr. Aparicio 20 years ago returns today for routine follow-up. Patient reports left hip continues to do well. 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 Chavez 3 years ago and he recommended routine surveillance on a annual basis. PAST MEDICAL HISTORY: Past Medical History: Diagnosis Date ??? Anxiety ??? Arthritis ??? HX OTHER MEDICAL Hysterectomy ??? HX OTHER MEDICAL left hip replacement ??? HX OTHER MEDICAL Bilateral tubal ligation ??? HX OTHER MEDICAL left ovarian cyst removed ??? HX OTHER MEDICAL left knee replacement ??? HX OTHER MEDICAL right knee replacement ??? HX OTHER MEDICAL MACEY/BSO ??? Hypertension ??? Osteoarthritis PAST SURGICAL HISTORY: Past Surgical History: Procedure Laterality Date ??? HIP SURGERY ??? JOINT REPLACEMENT ??? KNEE SURGERY MEDICATIONS: Current Outpatient Medications on File Prior to Visit Medication Sig Dispense Refill ??? atorvastatin (LIPITOR) 20 mg tablet 20 mg ??? citalopram (CeleXA) 20 mg tablet take 1 tablet (20MG) by oral route every day 90 0 ??? cycloSPORINE (RESTASIS) 0.05 % ophthalmic emulsion 1 drop 2 (two) times a day ??? diclofenac DR (VOLTAREN) 75 mg EC tablet take 1 tablet (75MG) by oral route 2 times every day 0 ??? divalproex DR (DEPAKOTE) 250 mg EC tablet take 2 Tablet (500MG) by oral route 2 times every [id number] 0 ??? folic acid (FOLVITE) 1 mg tablet take 2 Tablet (2MG) by oral route every day 0 ??? latanoprost (XALATAN) 0.005 % ophthalmic solution ??? levothyroxine (SYNTHROID, LEVOTHROID) 100 mcg tablet take 1 tablet (100MCG) by oral route everyday 90 0 ??? lisinopril (PRINIVIL,ZESTRIL) 2.5 mg tablet take 1 tablet by oral route every day 0 0 ??? methotrexate 2.5 mg tablet take 7 Tablet (17.5MG) by oral route every week 0 ??? multivitamin with minerals tablet ??? oxybutynin (DITROPAN) 5 mg tablet take 1 tablet (5MG) by oral route 3 times every day 270 0 ??? risperiDONE (RisperDAL) 0.5 mg tablet take 1 Tablet (0.5MG) by oral route every bedtime 90 0 ??? torsemide (DEMADEX) 10 mg tablet take 1 tablet by oral route every day 0 0 ??? DOXYCYCLINE HYCLATE 100 mg capsule (Patient not taking: Reported on 06/22/2021) 0 ??? ergocalciferol (VITAMIN D) 50,000 unit capsule TAKE 1 CAPSULE BY MOUTH WEEKLY (Patient not taking: Reported on 06/22/2021) ??? ferrous sulfate (IRON) 325 mg (65 mg iron) capsule, extended release take 1 by Oral route everyday (Patient not taking: Reported on 06/22/2021) 0 ??? [DISCONTINUED] benzonatate (TESSALON) 100 mg capsule TK ONE C PO TID PRF COUGH (Patient not taking: No sig reported) 0 ??? [DISCONTINUED] cephalexin (KEFLEX) 500 mg capsule 4 times daily. (Patient not taking: Reported on 06/22/2021) ??? [DISCONTINUED] divalproex DR (DEPAKOTE) 500 mg EC tablet TAKE 1 TABLET BY MOUTH EVERY MORNING AND 2 TABLETS EVERY NIGHT AT BEDTIME ??? [DISCONTINUED] levothyroxine sodium (TIROSINT) 100 mcg capsule take 1 capsule by oral route every day 0 0 ??? [DISCONTINUED] lisinopril (PRINIVIL,ZESTRIL) 2.5 mg tablet take 1 tablet (2.5MG) by oral route every day 90 0 ??? [DISCONTINUED] omega 0-jno-nsp-fish oil 300-1,000 mg capsule (Patient not taking: Reported on 06/22/2021) ??? [DISCONTINUED] oxybutynin XL (DITROPAN-XL) 10 mg 24 hr tablet Take 10 mg by mouth daily ??? [DISCONTINUED] propranolol LA (INDERAL LA) 60 mg 24 hr capsule (Patient not taking: Reported on06/22/2021) ??? [DISCONTINUED] risperiDONE (RisperDAL) 1 mg tablet Take 1 mg by mouth nightly ??? [DISCONTINUED] simvastatin (ZOCOR) 80 mg tablet (Patient not taking: Reported on 06/22/2021) ??? [DISCONTINUED] TRAVATAN Z 0.004 % drops (Patient not taking: Reported on 06/22/2021) 1 No current facility-administered medications on file prior to visit. ALLERGIES: Allergies Allergen Reactions ??? Penicillins Anaphylaxis ??? Ciprofloxacin Other (See comments) and Stomach upset Reaction: sore tongue GI upset, , Reaction: sore tongue GI upset, , SOCIAL HISTORY: Social History Socioeconomic History ??? Marital status: Spouse name: Not on file ??? Number of children: Not on file ??? Years of education: Not on file ??? Highest education level: Not on file Occupational History ??? Not on file Tobacco Use ??? Smoking status: Former Smoker ??? Smokeless tobacco: Never Used Substance and Sexual Activity ??? Alcohol use: Yes ??? Drug use: Not on file ??? Sexual activity: Not on file Other Topics Concern ??? Not on file Social History Narrative ??? Not on file Social Determinants of Health Financial Resource Strain: ??? Difficulty of Paying Living Expenses: Not on file Food Insecurity: ??? Worried About Running Out of Food in the Last Year: Not on file ??? Ran Out of Food in the Last Year: Not on file Transportation Needs: ??? Lack of Transportation (Medical): Not on file ??? Lack of Transportation (Non-Medical): Not on file Physical Activity: ??? Days of Exercise per Week: Not on file ??? Minutes of Exercise per Session: Not on file Stress: ??? Feeling of Stress : Not on file Social Connections: ??? Frequency of Communication with Friends and Family: Not on file ??? Frequency of Social Gatherings with Friends and Family: Not on file ??? Attends Mandaeism Services: Not on file ??? Active Member of Clubs or Organizations: Not on file ??? Attends Club or Organization Meetings: Not on file ??? Marital Status: Not on file Intimate Partner Violence: ??? Fear of Current or Ex-Partner: Not on file ??? Emotionally Abused: Not on file ??? Physically Abused: Not on file ??? Sexually Abused: Not on file FAMILY HISTORY: Family History Problem Relation Age of Onset ??? Other Brother bipolar; /Cancer - thymus; Cause of : Cancer - thymus ??? Cancer Father Cancer; ??? Pneumonia Father pneumonia; Cause of : pneumonia ??? Alzheimer's disease Other Family history of Alzheimer's Disease; ??? Cancer Other Family history of Cancer; ??? Hypertension Mother Hypertension; ??? Osteoarthritis Mother osteoarthritis; ??? Depression Sister depression; ??? Other Sister bipolar; REVIEW OF SYSTEMS: Twelve System Review accomplished and unremarkable for systemic complaints. PHYSICAL EXAMINATION: 5 ft 5, 245 lb, BMI 40. Patient transfer axk-iw-envud easily ambulates with a normal gait using no assistive devices. Leg lengths were equal. Trendelenburg was negative on the left. Passive range of motion left hip: Started flexion 0??, and flexion 90??, IRF 20, ER F 20, abduction 30. No pain with logroll on the left. Hip abductor strength adequate. Neurovascular status grossly intact left lower extremity XRAYS/REVIEW OF STUDIES: X-rays taken today AP pelvis cross-table lateral left hip revealed unchanged well-positioned noncemented left total hip arthroplasty with asymmetric liner wear but no significant loosening of the acetabular femoral components ASSESSMENT/PLAN: Twenty years status post primary left total hip arthroplasty with mild asymmetric polyethylene wearand slight osteolysis around the acetabular component asymptomatic Patient will continue with activities as tolerated and again recommend routine surveillance of the left hip every year. Janes Resendiz PA-C [facility] Orthopedic Surgery documented in this encounter Plan of Treatment Not on file documented as of this encounter Results * XR Hip Left 2 or 3 Views W Pelvis (06/22/2021 1:16 PM CDT) Anatomical Region Laterality Modality Lower Extremities, Hip, Pelvis Left C omputed Radiography 06/22/2021 1:25 PM CDT Impressions 06/22/2021 1:25 PM CDT 1. ??Unchanged left total hip arthroplasty with asymmetric liner wear and acetabular osteolysis Electronically signed by: Filiberto Fuentes MD, PHD Narrative 06/22/2021 1:25 PM CDT EXAMINATION: Left hip 2 or 3 views of pelvis HISTORY: ??Left total hip arthroplasty FINDINGS: 2 radiographs the pelvis and left hip are compared to prior study from May 07, 2018. The left total hip arthroplasty with mild asymmetric acetabular liner wear is again noted with osteolysis involving the superior lateral acetabulum. 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 There is unchanged mild right hip osteoarthritis. There is no acute fracture. Mild bilateral sacroiliac joint osteoarthritis is unchanged. Procedure Note Filiberto Fuentes MD PhD - 06/22/2021 EXAMINATION: Left hip 2 or 3 views of pelvis HISTORY: Left total hip arthroplasty FINDINGS: 2 radiographs the pelvis and left hip are compared to prior study from May 07, 2018. The left total hip arthroplasty with mild asymmetric acetabular liner wear is again noted with osteolysis involving the superior lateral acetabulum. 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 There is unchanged mild right hip osteoarthritis. There is no acute fracture. Mild bilateral sacroiliac joint osteoarthritis is unchanged. IMPRESSION: 1. Unchanged left total hip arthroplasty with asymmetric liner wear and acetabular osteolysis Electronically signed by: Filiberto Fuentes MD, PHD [facility] XR PROCEDURES Final Resul t documented in this encounter Visit Diagnoses Diagnosis Aftercare following left hip joint replacement surgery Aftercare following left hip joint replacement surgery documented in this encounter Discontinued Medications Medication Sig Discontinue Reason Start Date End Da te levothyroxine sodium (TIROSINT) 100 mcg capsule take 1 capsule by oral route every day 06/19/2013 06/22/2021 lisinopril (PRINIVIL,ZESTRIL) 2.5 mg tablet take 1 tablet (2.5MG) by oral route every day 03/26/2012 06/22/2021 oxybutynin XL (DITROPAN-XL) 10 mg 24 hr tablet Take 10 mg by mouth daily 05/16/2021 06/22/2021 divalproex (DEPAKOTE) 500 mg EC tablet TAKE 1 TABLET BY MOUTH EVERY MORNING AND 2 TABLETS EVERY NIGHT AT BEDTIME 04/07/2021 06/22/2021 risperiDONE (RisperDAL) 1 mg tablet Take 1 mg by mouth nightly 04/16/2021 06/22/2021 benzonatate (TESSALON) 100 mg capsuleIndications:Cough TK ONE C PO TID PRF COUGH 03/14/2018 06/22/2021 cephalexin (KEFLEX) 500 mg capsule 4 times daily. 08/08/2010 06/22/2021 omega 0-cbr-nbm-fish oil 300-1,000 mg capsule 06/22/2021 propranolol LA (INDERAL LA) 60 mg 24 hr capsule 03/22/2021 06/22/20 21 simvastatin (ZOCOR) 80 mg tablet 06/22/2021 TRAVATAN Z 0.004 % drops 02/12/2018 021 documented as of this encounter Historical Medications * This list may reflect changes made after this encounter. cycloSPORINE (RESTASIS) 0.05 % ophthalmic emulsion 1 drop 2 (two) times a day latanoprost (XALATAN) 0.005 % ophthalmic solution 05/19/2021 ergocalciferol (VITAMIN D) 50,000 unit capsule TAKE 1 CAPSULE BY MOUTH WEEKLY 05/01/2021 atorvastatin (LIPITOR) 20 mg tablet 20 mg 05/03/2021 risperiDONE (RisperDAL) 1 mg tablet Take 1 mg by mouth nightly 04/16/2021 06/22/2021 oxybutynin XL (DITROPAN-XL) 10 mg 24 hr tablet Take 10 mg by mouth daily 05/16/2021 06/22/[address] (DEPAKOTE) 500 mg EC tablet TAKE 1 TABLET BY MOUTH EVERY MORNING AND 2 TABLETS EVERY NIGHT AT BEDTIME 04/07/2021 06/22/2021 propranolol LA (INDERAL LA) 60 mg 24 hr capsule 03/22/2021 06/22/20 21 added in this encounter Care Teams Kitchen Work Supervisor Relationship Specialty Start Date End Date Michael Hinds MD [address] [address] PCP - General 07/10/13 12/26/21 documented as of this encounter
--- OUTSIDE RECORDS SUMMARY | 2024-11-01 00:06 | XMS_ITS | Encounter Summary ---
Author Organization [facility] Healthcare Address [address] [place] [address] Care Team Providers Care Maintenance Advisor Name Role Phone Yinka Jackson MD Primary Care Provider [phone] Encounter Details Date Type Department Care Team (Late st Contact Info) Description 02/11/2023 2:35 PM CDT Lab [address] [address] Social History Tobacco Use Types Packs/Day Years Used Date Smoking Tobacco: Former Smokeless Tobacco: Never Alcohol Use Standard Drinks/Week Comments Yes 0 (1 standard drink = 0.6 oz pur e alcohol) Comments Unknown Sex and Gender Information Value Date Recorded Sex Assigned at Not on file 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 73 m2 [facility] Comment: Interpretive Data Reference Interval Normal ?>/= [...] interpretive data was last reviewed 2021. Blood 02/11/2023 3:04 PM CDT 02/11/2023 3:55 PM CDT [facility] BLOOD ORDERA BLES Final Result Performing Organization Address [facility]/ZIP Co de Phone Number [facility] [address] Department [place] [address] * TSH reflex to free T4 (02/11/2023 3:04 PM CDT) TSH 0.94 0.30 - 4.20 mcIUnit/mL [facility] Blood 02/11/2023 3:04 PM CDT 02/11/2023 3:55 PM CDT [facility] BLOOD ORDERA BLES Final Result Performing Organization Address [facility] Co de Phone Number [facility] [address] Department [place] [address] * (ABNORMAL) Comprehensive metabolic panel (02/11/2023 3:04 PM CDT) Sodium 140 135 - 145 mmol/L [facility] Potassium, pl 4.5 3.3 - 4.9 mmol/L [facility] Chloride 101 97 - 110 mmol/L [facility] CO2 28 22 - 32 mmol/L [facility] Anion gap 11 2 - 15 mmol/L [facility] BUN 29(H) 8 - 25 mg/dL [facility] Creatinine 1.24(H) 0.60 - 1.10 mg/dL [facility] Glucose 95 70 - 199 mg/dL [facility] Comment: Interpretive Data Fasting glucose >/= 126 mg/dl is diagnostic for diabetes. ?? Fasting is defined as no caloric intake for at least 8 hours. Fasting glucose between 100 mg/dl to 125 mg/dl is diagnostic of prediabetes. In a patient with classic symptoms of hyperglycemia or hyperglycemic crisis, a random glucose >/= 200 mg/dl is diagnostic for diabetes. In the absence of unequivocal hyperglycemia, results should be confirmed by repeat testing. The classification and Diagnosis of Diabetes Diabetes Care 202; 46: S19-S40. Current interpretive data was last revised 2022. Calcium 10.1 8.5 - 10.3 mg/dL [facility] Bilirubin, total 0.6 0.1 - 1.2 mg/dL [facility] Protein, pl 6.2(L) 6.5 - 8.5 g/dL [facility] Albumin 4.0 3.5 - 5.0 g/dL [facility] Alk phos 54 40 - 130 Units/L [facility] ALT 14 7 - 45 Units/L [facility] AST 14 10 - 45 Units/L [facility] Blood 02/11/2023 3:04 PM CDT 02/11/2023 3:55 PM CDT [facility] BLOOD ORDERA BLES Final Result [facility] [address] Department [place] [address] documented in this encounter Visit Diagnoses Not on filedocumented in this encounter Care Teams Maintenance Advisor Relationship Specialty Start Date End Date Yinka Jackson MD PCP - General Internal Medicine 12/27/21 documented as of this encounter
--- OUTSIDE RECORDS SUMMARY | 2024-11-01 00:06 | XMS_ITS | Encounter Summary ---
Author Organization [facility] Healthcare Address [address] [place] [address] Care Team Providers Care Prosthetics Lab Technician Name Role Phone Yinka Jackson MD Primary Care Provider [phone] Encounter Details Date Type Department Care Team (Latest Contact Info) Description 01/11/2023 2:22 PM CDT - 01/11/2023 11:59 PM CDT Hospital Encounter [address] [place] [address] Discharge Disposition: Discharge to home or self care Social History Tobacco Use Types Packs/Day Years Used Date Smoking Tobacco: Former Smokeless Tobacco: Never Alcohol Use Standard Drinks/Week Comments Yes 0 (1 standard drink = 0.6 oz pur e alcohol) Comments Unknown Sex and Gender Information Value Date Recorded Sex Assigned at Not on file 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 73 m2 [facility] Comment: Interpretive Data Reference Interval Normal ?>/= [...] interpretive data was last reviewed 2021. Blood 01/11/2023 10:4 0 AM CDT 01/11/2023 3:09 PM CDT us Michael Hinds MD LAB BLOOD ORDERABLES Fin al Result [facility] [address] Department [place] [address] * Differential, auto (01/11/2023 10:40 AM CDT) [facility] Neutrophil abs 5.2 1.7 - 6.5 K/cumm [facility] Imm gran abs 0.0 0.0 - 0.1 K/cumm [facility] Lymphocyte abs 1.6 0.8 - 3.3 K/cumm [facility] Monocyte abs 0.6 0.2 - 0.8 K/cumm [facility] Eosinophil abs 0.2 0.0 - 0.5 K/cumm [facility] Basophil abs 0.1 0.0 - 0.1 K/cumm [facility] Neutrophil pct 67.6 % [facility] Comment: Interpretive Data Percent cell count reference ranges are not reported, since discordance with absolute values may lead to misinterpretation of CBC data. Current Interpretive Data was last revised on 2018. Imm gran pct 0.4 % [facility] Comment: Interpretive Data Percent cell count reference ranges are not reported, since discordance with absolute values may lead to misinterpretation of CBC data. Current Interpretive Data was last revised on 2018. Lymphocyte pct 20.1 % [facility] Comment: Interpretive Data Percent cell count reference ranges are not reported, since discordance with absolute values may lead to misinterpretation of CBC data. Current Interpretive Data was last revised on 2018. Monocyte pct 8.3 % [facility] Comment: Interpretive Data Percent cell count reference ranges are not reported, since discordance with absolute values may lead to misinterpretation of CBC data. Current Interpretive Data was last revised on 2018. Eosinophil pct 2.8 % [facility] Comment: Interpretive Data Percent cell count reference ranges are not reported, since discordance with absolute values may lead to misinterpretation of CBC data. Current Interpretive Data was last revised on 2018. Basophil pct 0.8 % [facility] Comment: Interpretive Data Percent cell count reference ranges are not reported, since discordance with absolute values may lead to misinterpretation of CBC data. Current Interpretive Data was last revised on 2018. Blood 01/11/2023 10:4 0 AM CDT 01/11/2023 2:29 PM CDT Michael Hinds MD LAB BLOOD ORDERABLES Fin al Result [facility] [address] Department [place] [address] * (ABNORMAL) Creatinine (01/11/2023 10:40 AM CDT) [facility] Creatinine 1.22(H) 0.60 - 1.10 mg/dL [facility] Blood 01/11/2023 10:4 0 AM CDT 01/11/2023 2:29 PM CDT Michael Hinds MD LAB BLOOD ORDERABLES Fin al Result Performing Organization Address [facility] Co de Phone Number [facility] [address] Department [employer] [place], [place] [id number] * (ABNORMAL) Hepatic function panel (01/11/2023 10:40 AM CDT) [facility] Bilirubin, total 0.5 0.1 - 1.2 mg/dL [facility] Bilirubin, direct <0.2 0.1 - 0.3 mg/dL [facility] Protein, pl 6.3(L) 6.5 - 8.5 g/dL [facility] Albumin 4.1 3.5 - 5.0 g/dL [facility] Alk phos 60 40 - 130 Units/L [facility] ALT 13 7 - 45 Units/L [facility] AST 16 10 - 45 Units/L [facility] Blood 01/11/2023 10:4 0 AM CDT 01/11/2023 2:29 PM CDT Michael Hinds MD LAB BLOOD ORDERABLES Fin al Result Performing Organization Address [facility] Co de Phone Number [facility] [address] Department [employer] [place], [place] [id number] * (ABNORMAL) CBC with auto differential (01/11/2023 10:40 AM CDT) [facility] WBC 7.7 3.8 - 9.9 K/cumm [facility] Hgb 11.6(L) 11.9 - 15.5 g/dL [facility] Hct 38.1 35.6 - 45.5 % [facility] Plt 244 150 - 400 K/cumm [facility] MPV 10.4 9.1 - 12.3 fL [facility] RBC 3.83(L) 3.90 - 5.20 M/cumm [facility] MCV 99.5(H) 81.3 - 96.4 fL [facility] MCH 30.3 27.1 - 33.3 pg [facility] MCHC 30.4(L) 32.3 - 35.7 g/dL [facility] RDW CV 14.6 11.1 - 14.9 % [facility] RDW SD 53.0(H) 35.7 - 48.1 fL [facility] NRBC abs 0.00 0.00 - 0.01 K/cumm [facility] Blood 01/11/2023 10:4 0 AM CDT 01/11/2023 2:29 PM CDT us Michael Hinds MD LAB BLOOD ORDERABLES Fin al Result [facility] [address] Department [place] [address] documented in this encounter Visit Diagnoses Not on filedocumented in this encounter Care Teams Prosthetics Lab Technician Relationship Specialty Start Date End Date Yinka Jackson MD PCP - General Internal Medicine 12/27/21 documented as of this encounter
--- OUTSIDE RECORDS SUMMARY | 2024-11-01 00:06 | XMS_ITS | Encounter Summary ---
Author Organization [facility] Healthcare Address [address] [place] [address] Care Team Providers Care Activity Assistant Name Role Phone Yinka Jackson MD Primary Care Provider [phone] Encounter Details Date Type Department Care Team (Late st Contact Info) Description 09/18/2023 10:30 AM ONLINE RETAILER Lab [address] [address] Social History Tobacco Use Types Packs/Day Years Used Date Smoking Tobacco: Former Smokeless Tobacco: Never Alcohol Use Standard Drinks/Week Comments Yes 0 (1 standard drink = 0.6 oz pur e alcohol) Comments Unknown Sex and Gender Information Value Date Recorded Sex Assigned at Not on file Legal Sex Female 2:17 AM ONLINE RETAILER Gender Identity Not on file Sexual Orientation Not on file documented as of this encounter Plan of Treatment Not on file documented as of this encounter Procedures Procedure Name Priority Date/Time Associated Diagnosis Comments EGFR Routine 09/18/2023 10:40 AM ONLINE RETAILER DIFFERENTIAL AUTO Routine 09/18/2023 10: 40 AM ONLINE RETAILER CBC WITH AUTO DIFFERENTIAL Routine 09/18/2023 10:40 AM ONLINE RETAILER CREATININE Routine 09/18/2023 10:40 AM ONLINE RETAILER HEPATIC FUNCTION PANEL Routine 09/18/2023 10:40 AM ONLINE RETAILER documented in this encounter Results * eGFR (09/18/2023 10:40 AM ONLINE RETAILER) eGFR 48 mL/min/1. 73 m2 [facility] Comment: Interpretive Data Reference Interval Normal ?>/= [...] interpretive data was last reviewed 2021. Blood 09/18/2023 10:4 0 AM ONLINE RETAILER 09/18/2023 2:01 PM ONLINE RETAILER us Michael Hinds MD LAB BLOOD ORDERABLES Fin al Result [facility] [address] Department [place] [address] * Differential, auto (09/18/2023 10:40 AM ONLINE RETAILER) [facility] Neutrophil abs 5.4 1.7 - 6.5 K/cumm [facility] Imm gran abs 0.0 0.0 - 0.1 K/cumm [facility] Lymphocyte abs 1.5 0.8 - 3.3 K/cumm [facility] Monocyte abs 0.8 0.2 - 0.8 K/cumm [facility] Eosinophil abs 0.3 0.0 - 0.5 K/cumm [facility] Basophil abs 0.1 0.0 - 0.1 K/cumm [facility] Neutrophil pct 66.9 % [facility] Comment: Interpretive Data Percent cell count reference ranges are not reported, since discordance with absolute values may lead to misinterpretation of CBC data. Current Interpretive Data was last revised on 2018. Imm gran pct 0.5 % [facility] Comment: Interpretive Data Percent cell count reference ranges are not reported, since discordance with absolute values may lead to misinterpretation of CBC data. Current Interpretive Data was last revised on 2018. Lymphocyte pct 19.1 % [facility] Comment: Interpretive Data Percent cell count reference ranges are not reported, since discordance with absolute values may lead to misinterpretation of CBC data. Current Interpretive Data was last revised on 2018. Monocyte pct 9.4 % [facility] Comment: Interpretive Data Percent cell count reference ranges are not reported, since discordance with absolute values may lead to misinterpretation of CBC data. Current Interpretive Data was last revised on 2018. Eosinophil pct 3.2 % [facility] Comment: Interpretive Data Percent cell count reference ranges are not reported, since discordance with absolute values may lead to misinterpretation of CBC data. Current Interpretive Data was last revised on 2018. Basophil pct 0.9 % [facility] Comment: Interpretive Data Percent cell count reference ranges are not reported, since discordance with absolute values may lead to misinterpretation of CBC data. Current Interpretive Data was last revised on 2018. Blood 09/18/2023 10:4 0 AM ONLINE RETAILER 09/18/2023 2:02 PM ONLINE RETAILER us Michael Hinds MD LAB BLOOD ORDERABLES Fin al Result [facility] [address] Department [place] [address] * (ABNORMAL) Creatinine (09/18/2023 10:40 AM ONLINE RETAILER) Creatinine 1.19(H) 0.60 - 1.10 mg/dL [facility] Blood 09/18/2023 10:4 0 AM ONLINE RETAILER 09/18/2023 2:01 PM ONLINE RETAILER Michael Hinds MD LAB BLOOD ORDERABLES Fin al Result Performing Organization Address [facility] de Phone Number [facility] [address] [facility] [place] [address] * (ABNORMAL) Hepatic function panel (09/18/2023 10:40 AM ONLINE RETAILER) [facility] Bilirubin, total 0.3 0.1 - 1.2 mg/dL [facility] Bilirubin, direct <0.2 0.1 - 0.3 mg/dL [facility] Protein, pl 6.4(L) 6.5 - 8.5 g/dL [facility] Albumin 3.8 3.5 - 5.0 g/dL [facility] Alk phos 60 40 - 130 Units/L [facility] ALT 12 7 - 45 Units/L [facility] AST 15 10 - 45 Units/L [facility] Blood 09/18/2023 10:4 0 AM ONLINE RETAILER 09/18/2023 2:01 PM ONLINE RETAILER Michael Hinds MD LAB BLOOD ORDERABLES Fin al Result Performing Organization Address [facility] de Phone Number [facility] [address] [facility] [place] [address] * (ABNORMAL) CBC with auto differential (09/18/2023 10:40 AM ONLINE RETAILER) [facility] WBC 8.0 3.8 - 9.9 K/cumm [facility] Hgb 11.9 11.9 - 15.5 g/dL [facility] Comment: Interpretive Data A reference range for this assay has not been established for patients with an unknown legal sex. Please refer to the laboratory test catalog for established sex-specific reference intervals. Current interpretive data was last revised on 2023. Hct 38.0 35.6 - 45.5 % [facility] Comment: Interpretive Data A reference range for this assay has not been established for patients with an unknown legal sex. Please refer to the laboratory test catalog for established sex-specific reference intervals. Current interpretive data was last revised on 2023. Plt 280 150 - 400 K/cumm [facility] MPV 11.1 9.1 - 12.3 fL [facility] RBC 3.97 3.90 - 5.20 M/cumm [facility] Comment: Interpretive Data A reference range for this assay has not been established for patients with an unknown legal sex. Please refer to the laboratory test catalog for established sex-specific reference intervals. Current interpretive data was last revised on 2023. MCV 95.7 81.3 - 96.4 fL [facility] MCH 30.0 27.1 - 33.3 pg [facility] MCHC 31.3(L) 32.3 - 35.7 g/dL [facility] RDW CV 14.5 11.1 - 14.9 % [facility] RDW SD 49.4(H) 35.7 - 48.1 fL [facility] NRBC abs 0.00 0.00 - 0.01 K/cumm [facility] Blood 09/18/2023 10:4 0 AM ONLINE RETAILER 09/18/2023 2:02 PM ONLINE RETAILER us Michael Hinds MD LAB BLOOD ORDERABLES Fin al Result [facility] [address] Department [place] [address] documented in this encounter Visit Diagnoses Not on filedocumented in this encounter Care Teams Activity Assistant Relationship Specialty Start Date End Date Yinka Jackson MD PCP - General Internal Medicine 12/27/21 documented as of this encounter
--- OUTSIDE RECORDS SUMMARY | 2024-11-01 00:06 | XMS_ITS | Encounter Summary ---
Author Organization [facility] Address [address] [place] [address] Phone Care Team Providers Care Shredding Floor Equipment Operator Name Role Phone Michael Hinds MD Primary Care Provider + Reason for Referral * Diagnostic Imaging (Routine) - Closed Specialty Diagnoses / Procedures Referred By Contac t Referred To Contact Diagnoses Aftercare following bilateral knee joint replacement surgery Procedures XR Knee Left 3 Views Antwon Chavez MD Phone: tel: fax: [facility] [place] Referral ID Status Reason Start Date Expiration Date Visits Re quested Visits Authorized [id number] Closed 05/06/2018 11/15/2019 1 1 * Diagnostic Imaging (Routine) - Closed Specialty Diagnoses / Procedures Referred By Contac t Referred To Contact Diagnoses Aftercare following bilateral knee joint replacement surgery Procedures XR Knee Right 3 Views Antwon Chavez MD Phone: tel: fax: [facility] Referral ID Status Reason Start Date Expiration Date Visits Re quested Visits Authorized [id number] Closed 05/06/2018 11/15/2019 1 1 * Diagnostic Imaging (Routine) - Closed Specialty Diagnoses / Procedures Referred By Contac t Referred To Contact Diagnoses Bilateral hip pain Procedures XR Hips Bilateral 3 or 4 Views W Pelvis Antwon Chavez MD Phone: tel: fax: [facility] Referral ID Status Reason Start Date Expiration Date Visits Re quested Visits Authorized [id number] Closed 05/06/2018 11/15/2019 1 1 Encounter Details Date Type Department Care Team (Late st Contact Info) Description 05/07/2018 10:15 AM CDT Office Visit [facility] Orthopaedic Surgery [address] [facility] [address] [place] [address] Antwon Chavez MD [address] [place] [address] Aftercare following bilateral knee joint replacement surgery (Primary Dx); Bilateral hip pain Social History Tobacco Use Types Packs/Day Years Used Date Smoking Tobacco: Former Smokeless Tobacco: Former Alcohol Use Standard Drinks/Week Comments Yes 0 (1 standard drink = 0.6 oz pur e alcohol) Comments Unknown Sex and Gender Information Value Date Recorded Sex Assigned at Not on file 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 She has done quite well with her bilateral knees. She ishere for surveillance of her left hip, as there is a question of possible eccentric polyethylene wear during her last visit in 2015. Left hip is not particularly bothersome. She mainly complains of discomfort in her right posterior thigh, more so than her left posterior thigh. States that it is worse when she stands for prolonged periods of time and particularly when she attempts to bend over. She has taken Aleve as needed when it flares up which helps. She has had no physical therapy. MATHEWS HIP SCORE: LEFT HIP PAIN: None LIMP: None SUPPORT: None DISTANCE: Unlimited STAIRS: Normal SITTING: Any Chair 1 Hour SHOES/SOCKS: Easy PUBLIC TRANSPORTATION: Not applicable PHYSICAL EXAM: LEFT HIP Hip Pain is noted: None Skin Status: Previous incision healed Trendelenberg: Negative Range of Motion: Start of flexion: 0 End of flexion: 100 Abduction: 30 Adduction: 20 ERE: 40 RAFA: 20 Deformity: No deformity noted Leg Length Discrepancy: None Neurovascular status: Intact Abductor Strength: 5/5 Pulses Intact: Yes Dependent Edema: No Neurological Status Intact: Yes Right hip has a full painless range of motion from 0-100 degrees of flexion. No pain with flexion internal rotation. No pain with Emmanuel's testing. She does have pain in the posterior thigh with passive stretching of her hamstrings. Tenderness to palpation over the proximal hamstring origin and overthe mid substance of the proximal aspect of the hamstring. No swelling about the bilateral knees. Incisions are well healed. No surrounding erythema. Excellent range of motion, 0 to 100?? bilaterally. Stable to varus and valgus stress at 0 and 30??. Stable to anterior-posterior drawer. REVIEW OF XRAYS/STUDIES: Radiographs ordered and show excellent component alignment and excellent fixation. DX: Esther Munguia is a 67 y.o. female. The primary encounter diagnosis was Aftercare following bilateral knee joint replacement surgery. A diagnosis of Bilateral hip pain was also pertinent to this visit. She also has bilateral, right more symptomatic than left hamstring strains. TREATMENT PLAN: 1. The patient has been full weight bearing. She may continue full weight-bearing. 2. Would like to get her into physical therapy for stretching, strengthening and range of motion ofthe right hip in the setting of hamstring strain. We will also get her on meloxicam 15 mg to be taken once daily. We instructed to stop the diclofenac that she is currently taking. She should not take Aleve or any other anti-inflammatories while she is on meloxicam. Follow-up: We can see her back for surveillance radiographs of her hip in 1-2 years. Patient is in agreement this plan and all her questions were answered.I saw this patient alongside Dr. Lexis coker with the history, exam findings, and plan. Antwon Chavez MD Cosigned by Antwon Chavez MD at 05/07/2018 1:47 PM CDT documented in this encounter Plan of Treatment Not on file documented as of this encounter Results * XR Knee Left [...] lumbosacral segment on the right. Procedure Note iDck Hung MD - 05/07/2018 EXAMINATION: 1. Hips [...] Diagnosis Aftercare following bilateral knee joint replacement surgery- Primary Bilateral hip pain Pain in joint, pelvic region and thigh Aftercare following bilateral knee joint replacement surgery Bilateral hip pain Pain in joint, pelvic region and thigh documented in this encounter Care Teams Shredding Floor Equipment Operator Relationship Specialty Start Date End Date Michael Hinds MD [address] [address] PCP - General 07/10/13 12/26/21 documented as of this encounter
--- OUTSIDE RECORDS SUMMARY | 2024-11-01 00:06 | XMS_ITS | Encounter Summary ---
Author Organization [facility] Healthcare Address [address] [place] [address] Care Team Providers Care Trash Collector Name Role Phone Yinka Jackson MD Primary Care Provider [phone] Encounter Details Date Type Department Care Team (Latest Contact Info) Description 07/22/2024 5:15 PM CDT - 07/22/2024 11:59 PM CDT Hospital Encounter [place] [id number] [place] [address] Discharge Disposition: Discharge to home or self care Social History Tobacco Use Types Packs/Day Years Used Date Smoking Tobacco: Former Smokeless Tobacco: Never Alcohol Use Standard Drinks/Week Comments Yes 0 (1 standard drink = 0.6 oz pur e alcohol) Comments Unknown Sex and Gender Information Value Date Recorded Sex Assigned at Not on file 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 73 m2 Comment: Interpretive Data [...] interpretive data was last reviewed 2021. Blood 07/22/2024 11:5 4 AM CDT 07/22/2024 5:54 PM CDT us Michael Hinds MD LAB BLOOD ORDERABLES Fin al Result [facility] [address] Department [place] [address] * Differential, auto (07/22/2024 11:54 AM CDT) Pathologist [facility] Neutrophil abs 4.5 1.5 - 6.5 K/cumm Imm gran abs 0.0 0.0 - 0.1 K/cumm [facility] Lymphocyte abs 1.1 0.8 - 3.3 K/cumm [facility] Monocyte abs 0.6 0.2 - 0.8 K/cumm [facility] Eosinophil abs 0.2 0.0 - 0.5 K/cumm [facility] Basophil abs 0.1 0.0 - 0.1 K/cumm [facility] Neutrophil pct 68.6 % [facility] Comment: Interpretive Data Percent cell count reference ranges are not reported, since discordance with absolute values may lead to misinterpretation of CBC data. Current Interpretive Data was last revised on 2018. Imm gran pct 0.5 % [facility] Comment: Interpretive Data Percent cell count reference ranges are not reported, since discordance with absolute values may lead to misinterpretation of CBC data. Current Interpretive Data was last revised on 2018. Lymphocyte pct 17.1 % [facility] Comment: Interpretive Data Percent cell count reference ranges are not reported, since discordance with absolute values may lead to misinterpretation of CBC data. Current Interpretive Data was last revised on 2018. Monocyte pct 9.4 % [facility] Comment: Interpretive Data Percent cell count reference ranges are not reported, since discordance with absolute values may lead to misinterpretation of CBC data. Current Interpretive Data was last revised on 2018. Eosinophil pct 3.5 % [facility] Comment: Interpretive Data Percent cell count reference ranges are not reported, since discordance with absolute values may lead to misinterpretation of CBC data. Current Interpretive Data was last revised on 2018. Basophil pct 0.9 % [facility] Comment: Interpretive Data Percent cell count reference ranges are not reported, since discordance with absolute values may lead to misinterpretation of CBC data. Current Interpretive Data was last revised on 2018. Blood 07/22/2024 11:5 4 AM CDT 07/22/2024 5:26 PM CDT Michael Hinds MD LAB BLOOD ORDERABLES Fin al Result [facility] [address] Department [place] [address] * Creatinine (07/22/2024 11:54 AM CDT) Pathologist [facility] Creatinine 1.05 0.60 - 1.10 mg/dL Blood 07/22/2024 11:5 4 AM CDT 07/22/2024 5:25 PM CDT Michael Hinds MD LAB BLOOD ORDERABLES Fin al Result Performing Organization Address [facility] Co de Phone Number [facility] [address] [facility] EHR [place], [place] [phone] * (ABNORMAL) CBC with auto differential (07/22/2024 11:54 AM CDT) [facility] WBC 6.6 3.8 - 9.9 K/cumm Hgb 11.9 11.9 - 15.5 g/dL [facility] Hct 38.7 35.6 - 45.5 % [facility] Plt 277 150 - 400 K/cumm [facility] MPV 10.4 9.1 - 12.3 fL [facility] RBC 3.99 3.90 - 5.20 M/cumm [facility] MCV 97.0(H) 81.3 - 96.4 fL [facility] MCH 29.8 27.1 - 33.3 pg [facility] MCHC 30.7(L) 32.3 - 35.7 g/dL [facility] RDW CV 14.7 11.1 - 14.9 % [facility] RDW SD 51.6(H) 35.7 - 48.1 fL [facility] NRBC abs 0.00 0.00 - 0.01 K/cumm [facility] Blood 07/22/2024 11:5 4 AM CDT 07/22/2024 5:26 PM CDT Michael Hinds MD LAB BLOOD ORDERABLES Fin al Result Performing Organization Address City/[facility]/ZIP Co de Phone Number [facility] [address] Department [employer] [place], [place] [phone] * Hepatic function panel (07/22/2024 11:54 AM CDT) Bilirubin, total 0.4 0.1 - 1.2 mg/dL Bilirubin, direct <0.2 0.1 - 0.3 mg/dL [facility] Protein, pl 6.7 6.5 - 8.5 g/dL [facility] Albumin 3.8 3.5 - 5.0 g/dL [facility] Alk phos 62 40 - 130 Units/L [facility] ALT 17 7 - 45 Units/L [facility] AST 18 10 - 45 Units/L [facility] Blood 07/22/2024 11:5 4 AM CDT 07/22/2024 5:25 PM CDT us Michael Hinds MD LAB BLOOD ORDERABLES Fin al Result [facility] [address] Department [place] [address] documented in this encounter Visit Diagnoses Not on filedocumented in this encounter Care Teams Trash Collector Relationship Specialty Start Date End Date Yinka Jackson MD PCP - General Internal Medicine 12/27/21 documented as of this encounter
--- OUTSIDE RECORDS SUMMARY | 2024-11-01 00:06 | XMS_ITS | Encounter Summary ---
Author Organization [facility] Healthcare Address [address] [place] [address] Care Team Providers Care Roadside Mechanic Name Role Phone Yinka Jackson MD Primary Care Provider [phone] Encounter Details Date Type Department Care Team (Latest Contact Info) Description 05/17/2023 2:43 PM CDT - 05/17/2023 11:59 PM CDT Hospital Encounter [id number] [place] [address] Discharge Disposition: Discharge to home or self care Social History Tobacco Use Types Packs/Day Years Used Date Smoking Tobacco: Former Smokeless Tobacco: Never Alcohol Use Standard Drinks/Week Comments Yes 0 (1 standard drink = 0.6 oz pur e alcohol) Comments Unknown Sex and Gender Information Value Date Recorded Sex Assigned at Not on file 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 Gender Identity Not on file Sexual Orientation [...] Priority Date/Time Associated Diagnosis Comments EGFR Routine 05/17/2023 4:22 PM CDT CREATININE Routine 05/17/2023 4:22 PM CDT HEPATIC FUNCTION PANEL Routine 05/17/2023 4:22 PM CDT DIFFERENTIAL AUTO Routine 05/17/2023 4:2 1 PM CDT CBC WITH AUTO DIFFERENTIAL Routine 05/17/2023 4:21 PM CDT documented in this encounter Results * (ABNORMAL) Hepatic function panel (05/17/2023 4:22 PM CDT) [facility] Bilirubin, total 0.4 0.1 - 1.2 mg/dL [facility] Bilirubin, direct <0.2 0.1 - 0.3 mg/dL [facility] Protein, pl 6.2(L) 6.5 - 8.5 g/dL [facility] Albumin 3.6 3.5 - 5.0 g/dL [facility] Alk phos 53 40 - 130 Units/L [facility] ALT 11 7 - 45 Units/L [facility] AST 13 10 - 45 Units/L [facility] Blood 05/17/2023 4:22 PM CDT 05/17/2023 4:22 PM CDT us Michael Hinds MD LAB BLOOD ORDERABLES Fin al Result [facility] [address] Department [place] [address] * eGFR (05/17/2023 4:22 PM CDT) [facility] eGFR 47 mL/min/1. 73 m2 [facility] Comment: Interpretive Data Reference Interval [...] interpretive data was last reviewed 2021. Blood 05/17/2023 4:22 PM CDT 05/17/2023 4:22 PM CDT Michael Hinds MD LAB BLOOD ORDERABLES Fin al Result Performing Organization Address City/[facility]/ZIP Co de Phone Number [facility] [address] [employer] [place] [address] * (ABNORMAL) Creatinine (05/17/2023 4:22 PM CDT) Creatinine 1.22(H) 0.60 - 1.10 mg/dL [facility] Blood 05/17/2023 4:22 PM CDT 05/17/2023 4:22 PM CDT us Michael Hinds MD LAB BLOOD ORDERABLES Fin al Result Performing Organization Address City/[facility] Co de Phone Number [facility] [address] [employer] [place], [place] [phone] * (ABNORMAL) CBC with auto differential (05/17/2023 4:21 PM CDT) WBC 8.5 3.8 - 9.9 K/cumm [facility] Hgb 11.8(L) 11.9 - 15.5 g/dL [facility] Hct 38.2 35.6 - 45.5 % [facility] Plt 275 150 - 400 K/cumm [facility] MPV 10.5 9.1 - 12.3 fL [facility] RBC 3.88(L) 3.90 - 5.20 M/cumm [facility] MCV 98.5(H) 81.3 - 96.4 fL [facility] MCH 30.4 27.1 - 33.3 pg [facility] MCHC 30.9(L) 32.3 - 35.7 g/dL [facility] RDW CV 14.6 11.1 - 14.9 % [facility] RDW SD 51.4(H) 35.7 - 48.1 fL [facility] NRBC abs 0.00 0.00 - 0.01 K/cumm [facility] Blood 05/17/2023 4:21 PM CDT 05/17/2023 4:21 PM CDT us Michael Hinds MD LAB BLOOD ORDERABLES Fin al Result [facility] [address] Department [place] [address] * Differential, auto (05/17/2023 4:21 PM CDT) Neutrophil abs 5.8 1.7 - 6.5 K/cumm [facility] Imm gran abs 0.1 0.0 - 0.1 K/cumm [facility] Lymphocyte abs 1.5 0.8 - 3.3 K/cumm [facility] Monocyte abs 0.8 0.2 - 0.8 K/cumm [facility] Eosinophil abs 0.3 0.0 - 0.5 K/cumm [facility] Basophil abs 0.1 0.0 - 0.1 K/cumm [facility] Neutrophil pct 68.1 % [facility] Comment: Interpretive Data Percent cell count reference ranges are not reported, since discordance with absolute values may lead to misinterpretation of CBC data. Current Interpretive Data was last revised on 2018. Imm gran pct 0.6 % [facility] Comment: Interpretive Data Percent cell count reference ranges are not reported, since discordance with absolute values may lead to misinterpretation of CBC data. Current Interpretive Data was last revised on 2018. Lymphocyte pct 17.9 % [facility] Comment: Interpretive Data Percent cell count reference ranges are not reported, since discordance with absolute values may lead to misinterpretation of CBC data. Current Interpretive Data was last revised on 2018. Monocyte pct 9.5 % [facility] Comment: Interpretive Data Percent cell count reference ranges are not reported, since discordance with absolute values may lead to misinterpretation of CBC data. Current Interpretive Data was last revised on 2018. Eosinophil pct 3.3 % [facility] Comment: Interpretive Data Percent cell count reference ranges are not reported, since discordance with absolute values may lead to misinterpretation of CBC data. Current Interpretive Data was last revised on 2018. Basophil pct 0.6 % [facility] Comment: Interpretive Data Percent cell count reference ranges are not reported, since discordance with absolute values may lead to misinterpretation of CBC data. Current Interpretive Data was last revised on 2018. Blood 05/17/2023 4:21 PM CDT 05/17/2023 4:21 PM CDT us Michael Hinds MD LAB BLOOD ORDERABLES Fin al Result [facility] [address] Department [place] [address] documented in this encounter Visit Diagnoses Not on filedocumented in this encounter Care Teams Roadside Mechanic Relationship Specialty Start Date End Date Yinka Jackson MD PCP - General Internal Medicine 12/27/21 documented as of this encounter
--- OUTSIDE RECORDS SUMMARY | 2024-11-01 00:06 | XMS_ITS | Encounter Summary ---
Author Organization [facility] Healthcare Address [address] [place] [address] Care Team Providers Care Skein Straightener Name Role Phone Yinka Jackson MD Primary Care Provider [phone] Encounter Details Date Type Department Care Team (Latest Contact Info) Description 03/25/2024 2:35 PM CDT - 03/25/2024 11:59 PM CDT Hospital Encounter [id number] [place] [address] Discharge Disposition: Discharge to home or self care Social History Tobacco Use Types Packs/Day Years Used Date Smoking Tobacco: Former Smokeless Tobacco: Never Alcohol Use Standard Drinks/Week Comments Yes 0 (1 standard drink = 0.6 oz pur e alcohol) Comments Unknown Sex and Gender Information Value Date Recorded Sex Assigned at Not on file 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 Gender Identity Not on file Sexual Orientation [...] Priority Date/Time Associated Diagnosis Comments EGFR Routine 03/25/2024 11:29 AM CDT DIFFERENTIAL AUTO Routine 03/25/2024 11: 29 AM CDT IRON PROFILE W/ IBC Routine 03/25/2024 1 1:29 AM CDT CBC WITH AUTO DIFFERENTIAL Routine 03/25/2024 11:29 AM CDT FERRITIN Routine 03/25/2024 11:29 AM CDT CREATININE Routine 03/25/2024 11:29 AM CDT HEPATIC FUNCTION PANEL Routine 03/25/2024 11:29 AM CDT documented in this encounter Results * (ABNORMAL) Iron profile w/ IBC (03/25/2024 11:29 AM CDT) [facility] Iron 49 35 - 145 mcg/dL TIBC 271 250 - 400 mcg/dL [facility] Transferrin saturation 18(L) 20 - 50 % [facility] Blood 03/25/2024 11:2 9 AM CDT 03/25/2024 4:55 PM CDT Michael Hinds MD LAB BLOOD ORDERABLES Fin al Result Performing Organization Address [facility] [address] [facility]/ZIP Co de Phone Number [facility] [address] Department of [place], [place] [phone] * (ABNORMAL) Ferritin (03/25/2024 11:29 AM CDT) [facility] Ferritin 320(H) 15 - 150 ng/mL Blood 03/25/2024 11:2 9 AM CDT 03/25/2024 4:55 PM CDT Michael Hinds MD LAB BLOOD ORDERABLES Fin al Result Performing Organization Address [facility] [address] [facility] Co de Phone Number [facility] [address] Department of [place], [place] [id number] * (ABNORMAL) eGFR (03/25/2024 11:29 AM CDT) [facility] eGFR 48(L) >=60 mL/min/1. 73 m2 Comment: Interpretive Data [...] of Race in Diagnosing Kidney Disease, JASN 202). The CKD-EPI equation should not be used for patients with unstable renal function and has not been validated in children and those over 70. Current interpretive data was last reviewed 2021. Blood 03/25/2024 11:2 9 AM CDT 03/25/2024 4:55 PM CDT us Michael Hinds MD LAB BLOOD ORDERABLES Fin al Result [facility] [address] [place] [address] * Differential, auto (03/25/2024 11:29 AM CDT) Pathologist [facility] Neutrophil abs 5.6 1.5 - 6.5 K/cumm Imm gran abs 0.0 0.0 - 0.1 K/cumm [facility] Lymphocyte abs 1.3 0.8 - 3.3 K/cumm [facility] Monocyte abs 0.7 0.2 - 0.8 K/cumm [facility] Eosinophil abs 0.3 0.0 - 0.5 K/cumm [facility] Basophil abs 0.1 0.0 - 0.1 K/cumm [facility] Neutrophil pct 70.8 % [facility] Comment: Interpretive Data Percent cell count reference ranges are not reported, since discordance with absolute values may lead to misinterpretation of CBC data. Current Interpretive Data was last revised on 2018. Imm gran pct 0.5 % [facility] Comment: Interpretive Data Percent cell count reference ranges are not reported, since discordance with absolute values may lead to misinterpretation of CBC data. Current Interpretive Data was last revised on 2018. Lymphocyte pct 16.1 % [facility] Comment: Interpretive Data Percent cell count reference ranges are not reported, since discordance with absolute values may lead to misinterpretation of CBC data. Current Interpretive Data was last revised on 2018. Monocyte pct 8.2 % [facility] Comment: Interpretive Data Percent cell count reference ranges are not reported, since discordance with absolute values may lead to misinterpretation of CBC data. Current Interpretive Data was last revised on 2018. Eosinophil pct 3.8 % [facility] Comment: Interpretive Data Percent cell count reference ranges are not reported, since discordance with absolute values may lead to misinterpretation of CBC data. Current Interpretive Data was last revised on 2018. Basophil pct 0.6 % [facility] Comment: Interpretive Data Percent cell count reference ranges are not reported, since discordance with absolute values may lead to misinterpretation of CBC data. Current Interpretive Data was last revised on 2018. Blood 03/25/2024 11:2 9 AM CDT 03/25/2024 4:18 PM CDT us Michael Hinds MD LAB BLOOD ORDERABLES Fin al Result Performing Organization Address [facility] [address] [facility]/ZIP Co de Phone Number [facility] [address] [place] [address] * (ABNORMAL) Creatinine (03/25/2024 11:29 AM CDT) Creatinine 1.19(H) 0.60 - 1.10 mg/dL Blood 03/25/2024 11:2 9 AM CDT 03/25/2024 4:19 PM CDT Michael Hinds MD LAB BLOOD ORDERABLES Fin al Result Performing Organization Address [facility] [address] [facility] Co de Phone Number [facility] [address] Department [place] [address] * Hepatic function panel (03/25/2024 11:29 AM CDT) [facility] Bilirubin, total 0.4 0.1 - 1.2 mg/dL Bilirubin, direct <0.2 0.1 - 0.3 mg/dL [facility] Protein, pl 6.6 6.5 - 8.5 g/dL [facility] Albumin 3.7 3.5 - 5.0 g/dL [facility] Alk phos 73 40 - 130 Units/L [facility] ALT 31 7 - 45 Units/L [facility] AST 22 10 - 45 Units/L [facility] Blood 03/25/2024 11:2 9 AM CDT 03/25/2024 4:19 PM CDT Michael Hinds MD LAB BLOOD ORDERABLES Fin al Result [facility] [address] Department [place] [address] * (ABNORMAL) CBC with auto differential (03/25/2024 11:29 AM CDT) [facility] WBC 7.9 3.8 - 9.9 K/cumm Hgb 11.6(L) 11.9 - 15.5 g/dL [facility] Hct 36.4 35.6 - 45.5 % [facility] Plt 285 150 - 400 K/cumm [facility] MPV 10.2 9.1 - 12.3 fL [facility] RBC 3.75(L) 3.90 - 5.20 M/cumm [facility] MCV 97.1(H) 81.3 - 96.4 fL [facility] MCH 30.9 27.1 - 33.3 pg [facility] MCHC 31.9(L) 32.3 - 35.7 g/dL [facility] RDW CV 14.6 11.1 - 14.9 % [facility] RDW SD 50.7(H) 35.7 - 48.1 fL [facility] NRBC abs 0.00 0.00 - 0.01 K/cumm [facility] Blood 03/25/2024 11:2 9 AM CDT 03/25/2024 4:18 PM CDT us Michael Hinds MD LAB BLOOD ORDERABLES Fin al Result [facility] [address] Department [place] [address] documented in this encounter Visit Diagnoses Not on filedocumented in this encounter Care Teams Skein Straightener Relationship Specialty Start Date End Date Yinka Jackson MD PCP - General Internal Medicine 12/27/21 documented as of this encounter
--- OUTSIDE RECORDS SUMMARY | 2024-11-01 00:06 | XMS_ITS | Encounter Summary ---
Author Organization [facility] Healthcare Address [address] [place] [address] Care Team Providers Care Shank Taper Name Role Phone Yinka Jackson MD Primary Care Provider [phone] Encounter Details Date Type Department Care Team (Latest Contact Info) Description 01/15/2024 2:33 PM CDT - 01/15/2024 11:59 PM CDT Hospital Encounter [id number] [place] [address] Discharge Disposition: Discharge to home or self care Social History Tobacco Use Types Packs/Day Years Used Date Smoking Tobacco: Former Smokeless Tobacco: Never Alcohol Use Standard Drinks/Week Comments Yes 0 (1 standard drink = 0.6 oz pur e alcohol) Comments Unknown Sex and Gender Information Value Date Recorded Sex Assigned at Not on file 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 73 m2 Comment: Interpretive Data Reference [...] interpretive data was last reviewed 2021. Blood 01/15/2024 12:3 1 PM CDT 01/15/2024 3:28 PM CDT us Yinka Jackson MD LAB BLOOD ORDERABLES Final R esult [facility] [address] Department [place] [address] * (ABNORMAL) Differential, auto (01/15/2024 12:31 PM CDT) Neutrophil abs 7.4(H) 1.5 - 6.5 K/cumm Imm gran abs 0.1 0.0 - 0.1 K/cumm [facility] Lymphocyte abs 1.5 0.8 - 3.3 K/cumm [facility] Monocyte abs 0.7 0.2 - 0.8 K/cumm [facility] Eosinophil abs 0.2 0.0 - 0.5 K/cumm [facility] Basophil abs 0.1 0.0 - 0.1 K/cumm [facility] Neutrophil pct 74.8 % [facility] Comment: Interpretive Data Percent cell count reference ranges are not reported, since discordance with absolute values may lead to misinterpretation of CBC data. Current Interpretive Data was last revised on 2018. Imm gran pct 0.5 % [facility] Comment: Interpretive Data Percent cell count reference ranges are not reported, since discordance with absolute values may lead to misinterpretation of CBC data. Current Interpretive Data was last revised on 2018. Lymphocyte pct 14.8 % [facility] Comment: Interpretive Data Percent cell count reference ranges are not reported, since discordance with absolute values may lead to misinterpretation of CBC data. Current Interpretive Data was last revised on 2018. Monocyte pct 6.9 % [facility] Comment: Interpretive Data Percent cell count reference ranges are not reported, since discordance with absolute values may lead to misinterpretation of CBC data. Current Interpretive Data was last revised on 2018. Eosinophil pct 2.4 % [facility] Comment: Interpretive [...] Data was last revised on 2018. Blood 01/15/2024 12:3 1 PM CDT 01/15/2024 3:01 PM CDT us Yinka Jackson MD LAB BLOOD ORDERABLES Final R esult [facility] [address] Department of Laboratories [place] [id number] * Hemoglobin A1c (01/15/2024 12:31 PM CDT) [facility] Hgb A1C 5.4 4.0 - 5.6 % Estimated Average Glucose 108 mg/dL [facility] Comment: The ADA recommends reporting an estimated Average Glucose (eAG) with all Hemoglobin A1c results using the equation derived from a study of 507 normal and diabetic adults. ??Minority populations were underrepresented and children were not included. ?? (Diabetes Care 31:6089-6817, 2008). ??The eAG is not equivalent to a fasting glucose. Blood 01/15/2024 12:3 1 PM CDT 01/15/2024 3:01 PM CDT Yinka Jackson MD LAB BLOOD ORDERABLES Final R esult [facility] [address] Department [place] [address] * (ABNORMAL) CBC with auto differential (01/15/2024 12:31 PM CDT) [facility] WBC 9.9 3.8 - 9.9 K/cumm Hgb 12.0 11.9 - 15.5 g/dL [facility] Hct 38.4 35.6 - 45.5 % [facility] Plt 307 150 - 400 K/cumm [facility] MPV 10.9 9.1 - 12.3 fL [facility] RBC 4.00 3.90 - 5.20 M/cumm [facility] MCV 96.0 81.3 - 96.4 fL [facility] MCH 30.0 27.1 - 33.3 pg [facility] MCHC 31.3(L) 32.3 - 35.7 g/dL [facility] RDW CV 14.7 11.1 - 14.9 % [facility] RDW SD 50.5(H) 35.7 - 48.1 fL [facility] NRBC abs 0.00 0.00 - 0.01 K/cumm [facility] Blood 01/15/2024 12:3 1 PM CDT 01/15/2024 3:01 PM CDT Yinka Jackson MD LAB BLOOD ORDERABLES Final R esult [facility] [address] Department [place] [address] * (ABNORMAL) Comprehensive metabolic panel (01/15/2024 12:31 PM CDT) Pathologist [facility] Sodium 141 135 - 145 mmol/L Potassium, pl 4.8 3.3 - 4.9 mmol/L [facility] Chloride 106 97 - 110 mmol/L [facility] CO2 25 22 - 32 mmol/L [facility] Anion gap 10 2 - 15 mmol/L [facility] BUN 25 6 - 25 mg/dL [facility] Creatinine 1.06 0.60 - 1.10 mg/dL [facility] Glucose 88 70 - 199 mg/dL [facility] Comment: Interpretive Data Fasting glucose >/= 126 [...] classification and Diagnosis of Diabetes Diabetes Care 2021; 46: S19-S40. Current interpretive data was last revised 2022. Calcium 10.6(H) 8.5 - 10.3 mg/dL [facility] Bilirubin, total 0.4 0.1 - 1.2 mg/dL [facility] Protein, pl 6.7 6.5 - 8.5 g/dL [facility] Albumin 3.8 3.5 - 5.0 g/dL [facility] Alk phos 56 40 - 130 Units/L [facility] ALT 14 7 - 45 Units/L [facility] AST 16 10 - 45 Units/L [facility] Blood 01/15/2024 12:3 1 PM CDT 01/15/2024 3:01 PM CDT Yinka Jackson MD LAB BLOOD ORDERABLES Final R esult [facility] [address] [facility] [place] [address] * TSH (01/15/2024 12:31 PM CDT) Thyroid Stimulating Hormone 0.96 0.30 - 4.20 mcIUnit/mL Blood 01/15/2024 12:3 1 PM CDT 01/15/2024 3:01 PM CDT Yinka Jackson MD LAB BLOOD ORDERABLES Final R esult Performing Organization Address [facility] Co de Phone Number [facility] [address] [facility] [place] [address] documented in this encounter Visit Diagnoses Not on filedocumented in this encounter Care Teams Shank Taper Relationship Specialty Start Date End Date Yinka Jackson MD PCP - General Internal Medicine 12/27/21 documented as of this encounter
--- OUTSIDE RECORDS SUMMARY | 2024-11-01 00:06 | XMS_ITS | Encounter Summary ---
Author Organization [facility] Healthcare Address [address] [place] [address] Care Team Providers Care Collections Attorney Name Role Phone Yinka Jackson MD Primary Care Provider [phone] Encounter Details Date Type Department Care Team (Late st Contact Info) Description 12/26/2023 10:45 AM LDR NURSE Lab [address] [phone] Social History Tobacco Use Types Packs/Day Years Used Date Smoking Tobacco: Former Smokeless Tobacco: Never Alcohol Use Standard Drinks/Week Comments Yes 0 (1 standard drink = 0.6 oz pur e alcohol) Comments Unknown Sex and Gender Information Value Date Recorded Sex Assigned at Not on file 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 73 m2 [facility] Comment: Interpretive Data Reference Interval Normal ?>/= [...] interpretive data was last reviewed 2021. Blood 12/26/2023 10:5 3 AM LDR NURSE 12/26/2023 1:50 PM LDR NURSE us Michael Hinds MD LAB BLOOD ORDERABLES Fin al Result [facility] [address] Department [place] [address] * Differential, auto (12/26/2023 10:53 AM LDR NURSE) [facility] Neutrophil abs 4.6 1.5 - 6.5 K/cumm [facility] Imm gran abs 0.0 0.0 - 0.1 K/cumm [facility] Lymphocyte abs 1.6 0.8 - 3.3 K/cumm [facility] Monocyte abs 0.6 0.2 - 0.8 K/cumm [facility] Eosinophil abs 0.3 0.0 - 0.5 K/cumm [facility] Basophil abs 0.1 0.0 - 0.1 K/cumm [facility] Neutrophil pct 63.7 % [facility] Comment: Interpretive Data Percent cell count reference ranges are not reported, since discordance with absolute values may lead to misinterpretation of CBC data. Current Interpretive Data was last revised on 2018. Imm gran pct 0.4 % [facility] Comment: Interpretive Data Percent cell count reference ranges are not reported, since discordance with absolute values may lead to misinterpretation of CBC data. Current Interpretive Data was last revised on 2018. Lymphocyte pct 21.9 % [facility] Comment: Interpretive Data Percent cell count reference ranges are not reported, since discordance with absolute values may lead to misinterpretation of CBC data. Current Interpretive Data was last revised on 2018. Monocyte pct 8.9 % [facility] Comment: Interpretive Data Percent cell count reference ranges are not reported, since discordance with absolute values may lead to misinterpretation of CBC data. Current Interpretive Data was last revised on 2018. Eosinophil pct 4.3 % [facility] Comment: Interpretive Data Percent cell count reference ranges are not reported, since discordance with absolute values may lead to misinterpretation of CBC data. Current Interpretive Data was last revised on 2018. Basophil pct 0.8 % [facility] Comment: Interpretive Data Percent cell count reference ranges are not reported, since discordance with absolute values may lead to misinterpretation of CBC data. Current Interpretive Data was last revised on 2018. Blood 12/26/2023 10:5 3 AM LDR NURSE 12/26/2023 1:54 PM LDR NURSE us Michael Hinds MD LAB BLOOD ORDERABLES Fin al Result [facility] [address] Department [place] [address] * (ABNORMAL) Creatinine (12/26/2023 10:53 AM LDR NURSE) Creatinine 1.13(H) 0.60 - 1.10 mg/dL [facility] Blood 12/26/2023 10:5 3 AM LDR NURSE 12/26/2023 1:50 PM LDR NURSE Michael Hinds MD LAB BLOOD ORDERABLES Fin al Result Performing Organization Address [facility] de Phone Number [facility] [address] [facility] [place] [address] * (ABNORMAL) Hepatic function panel (12/26/2023 10:53 AM LDR NURSE) [facility] Bilirubin, total 0.3 0.1 - 1.2 mg/dL [facility] Bilirubin, direct <0.2 0.1 - 0.3 mg/dL [facility] Protein, pl 6.2(L) 6.5 - 8.5 g/dL [facility] Albumin 3.6 3.5 - 5.0 g/dL [facility] Alk phos 62 40 - 130 Units/L [facility] ALT 13 7 - 45 Units/L [facility] AST 15 10 - 45 Units/L [facility] Blood 12/26/2023 10:5 3 AM LDR NURSE 12/26/2023 1:50 PM LDR NURSE Michael Hinds MD LAB BLOOD ORDERABLES Fin al Result Performing Organization Address [facility] de Phone Number [facility] [address] [facility] [place] [address] * (ABNORMAL) CBC with auto differential (12/26/2023 10:53 AM LDR NURSE) [facility] WBC 7.2 3.8 - 9.9 K/cumm [facility] Hgb 11.8(L) 11.9 - 15.5 g/dL [facility] Hct 38.1 35.6 - 45.5 % [facility] Plt 267 150 - 400 K/cumm [facility] MPV 10.6 9.1 - 12.3 fL [facility] RBC 3.93 3.90 - 5.20 M/cumm [facility] MCV 96.9(H) 81.3 - 96.4 fL [facility] MCH 30.0 27.1 - 33.3 pg [facility] MCHC 31.0(L) 32.3 - 35.7 g/dL [facility] RDW CV 14.6 11.1 - 14.9 % [facility] RDW SD 51.1(H) 35.7 - 48.1 fL [facility] NRBC abs 0.00 0.00 - 0.01 K/cumm [facility] Blood 12/26/2023 10:5 3 AM LDR NURSE 12/26/2023 1:54 PM LDR NURSE us Michael Hinds MD LAB BLOOD ORDERABLES Fin al Result [facility] [address] Department [place] [address] documented in this encounter Visit Diagnoses Not on filedocumented in this encounter Care Teams Collections Attorney Relationship Specialty Start Date End Date Yinka Jackson MD PCP - General Internal Medicine 12/27/21 documented as of this encounter
--- OUTSIDE RECORDS SUMMARY | 2024-11-01 00:06 | XMS_ITS | Encounter Summary ---
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 Procedures XR Hip Left 2 or 3 Views W Pelvis Janes Resendiz PA Phone: tel: fax: [address] [place] [address] Referral ID Status Reason Start Date Expiration Date Visits Re quested Visits Authorized [id number] Closed 06/09/2021 07/09/2022 1 1 Reason for Visit * Diagnostic Imaging (Routine) - Closed Specialty Diagnoses / Procedures Referred By Parmjit enciso Referred To Contact Diagnoses Aftercare following left hip joint replacement surgery Procedures XR Hip Left 2 or 3 Views W Pelvis Janes Resendiz PA Phone: tel: fax: [place] [address] [place] [address] Referral ID Status Reason Start Date Expiration Date Visits Re quested Visits Authorized [id number] Closed 06/09/2021 07/09/2022 1 1 Encounter Details Date Type Department Care Team (Latest Contact Info) Description 06/22/2021 1:06 PM CDT - 06/22/2021 11:59 PM CDT Hospital Encounter [id number] [address] [facility] [address] [place] [phone] Jakob Angelo MD [address] [place] [address] Janes Resendiz PA [address] [place] [address] Aftercare following left hip joint replacement surgery Discharge Disposition: Discharge to home or self care Social History Tobacco Use Types Packs/Day Years Used Date Smoking Tobacco: Former Smokeless Tobacco: Never Alcohol Use Standard Drinks/Week Comments Yes 0 (1 standard drink = 0.6 oz pur e alcohol) Comments Unknown Sex and Gender Information Value Date Recorded Sex Assigned at Not on file 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
--- OUTSIDE RECORDS SUMMARY | 2024-11-01 00:07 | XMS_ITS | Encounter Summary ---
Author Organization [facility] Care Team Providers Care Dramatic Agent Name Role Phone Unavailable Primary Care Provider Unavailabl e Encounter Details Date Type Department Care Team (Late st Contact Info) Description 08/09/2008 - 08/09/2008 11:59 PM CDT Hospital Encounter [facility] Antwon Malik MD [address] [facility] [address] [place] [phone] Pain in joint, pelvic region and thigh; Pain in joint, lower leg; History of hip joint replacement by other means; Knee joint replaced by other means; Osteoarthrosis, pelvic region and thigh; Primary localized osteoarthrosis, lower leg Social History Tobacco Use Types Packs/Day Years Used Date Smoking Tobacco: Never Assessed Comments Unknown Sex and Gender Information Value Date Recorded Sex Assigned at Not on file Legal Sex Female 2:17 AM PATIENT [facility] MGR Gender Identity Not on file Sexual Orientation Not on file documented as of this encounter Plan of Treatment Not on file documented as of this encounter Visit Diagnoses Diagnosis Pain in joint, pelvic region and thigh Pain in joint, lower leg History of hip joint replacement by other means Knee joint replaced by other means Osteoarthrosis, 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
--- OUTSIDE RECORDS SUMMARY | 2024-11-01 00:07 | XMS_ITS | Encounter Summary ---
Author Organization [facility] Facility Care Team Providers Care Chisel Trimmer Name Role Phone Michael Hinds MD Primary Care Provider + Encounter Details Date Type Department Care Team (Late st Contact Info) Description 11/28/2016 10:45 AM FUEL ATTENDANT - 11/28/2016 11:[address] [facility] Hospital Encounter [facility] Antwon Malik MD [address] [facility] [address] [place] [address] Aftercare following joint replacement surgery; Presence of both artificial knee joints Social History Tobacco Use Types Packs/Day Years Used Date Smoking Tobacco: Former Cigarettes Q uit: 10/28/1991 Alcohol Use Standard Drinks/Week Comments Yes 0 (1 standard drink = 0.6 oz pur e alcohol) Comments Unknown Sex and Gender Information Value Date Recorded Sex Assigned at Not on file Legal Sex Female 2:[address] [facility] Gender Identity Not on file Sexual Orientation [...] 2 times every day 360 0 08/06/2012 ferrous sulfate (IRON) 325 mg (65 mg iron) capsule, extended release take 1 by Oral route every day 0 08/06/2012 folic acid (FOLVITE) 1 mg tablet take 2 Tablet (2MG) by oral route every day 0 08/06/2012 levothyroxine (SYNTHROID, LEVOTHROID) 100 mcg tablet take 1 tablet (100MCG) by oral route every day 90 0 08/06/2012 lisinopril (PRINIVIL,ZESTRI L) 2.5 mg tablet take 1 tablet by oral route every day 0 0 06/19/2013 methotrexate 2.5 mg tablet take 7 Tablet (17.5MG) by oral route every week 0 08/06/2012 oxybutynin (DITROPAN) 5 mg tablet take 1 tablet (5MG) by oral route 3 times every day 270 0 08/06/2012 risperiDONE (RisperDAL) 0.5 mg tablet take 1 Tablet (0.5MG) by oral route every bedtime 90 0 08/06/2012 torsemide (DEMADEX) 10 mg tablet take 1 tablet by oral route every day 0 0 06/19/2013 atorvastatin (LIPITOR) 20 mg tablet take 1 tablet by oral route every day 0 0 06/19/2013 8 atorvastatin (LIPITOR) 20 mg tablet take 1 tablet (20MG) by oral route every day 30 6 08/13/2012 8 celecoxib (CeleBREX) 200 mg capsule Take 2 pills in AM day before surgery, then 1 BID until completed 06/19/2010 8 cephalexin (KEFLEX) 500 mg capsule 4 times daily. 08/08/2010 1 levothyroxine sodium (TIROSINT) 100 mcg capsule take 1 capsule by oral route every day 0 0 06/19/2013 1 lisinopril (PRINIVIL,ZESTRI L) 2.5 mg tablet take 1 tablet (2.5MG) by oral route every day 90 0 03/26/2012 1 torsemide (DEMADEX) 10 mg tablet take 1 tablet (10MG) by oral route every day 30 0 08/06/2012 8 documented as of this encounter Plan of Treatment Not on file documented as of this encounter Procedures Procedure Name Priority Date/Time Associated Diagnosis Comments XR KNEE 4+ VW Routine 11/28/2016 11:09 AM FUEL ATTENDANT XR KNEE 4+ VW Routine 11/28/2016 11:09 AM FUEL ATTENDANT documented in this encounter Results * XR Knee 4+ VW (11/28/2016 11:09 AM FUEL ATTENDANT) Anatomical Region Laterality Modality N/A Radiographic Bessie ging 11/28/2016 11:0 9 AM FUEL ATTENDANT Narrative 11/28/2016 11:20 AM FUEL ATTENDANT RODRIGO BEDOLLA M.D. FINAL REPORT ACC# ??Date Time ??Exam [id number] Nov 28, 2016 11:09:00 [id number] Knee Complete min 4 views R [id number] Nov 28, 2016 11:09:00 [id number] Knee Complete min 4 views L EXAMINATION: ? 1. Right knee complete minimum 4 views. 2. Left knee complete minimum 4 views. HISTORY: ??Bilateral arthroplasties, bilateral knee pain. FINDINGS: ?? AP, lateral, and merchant views of both knees were obtained with a standing alignment view of both knees. Comparison is made to examination March 20, 2013. There is a 2 component right knee arthroplasty in unchanged, near anatomic, position. There is no periprosthetic fracture. There is a trace right knee joint effusion. Heterotopic ossification adjacent to the superior flange of the femoral prosthesis is unchanged. There is a 2 component left knee arthroplasty in unchanged, near anatomic, position. There is no periprosthetic fracture. There is no joint effusion. Standing alignment views demonstrate a left total hip arthroplasty. There is neutral mechanical axis bilaterally. IMPRESSION: ?? 1. Bilateral 2 component knee arthroplasties in near anatomic position with neutral mechanical axis. Requested By: Dictated By: ?? RODRIGO BEDOLLA M.D. ??on Nov ??2016 11:20A This document has been electronically signed by: RODRIGO BEDOLLA M.D. on Nov ??2016 11:20A [id number] Procedure Note Provider, MD Philly - 03/06/2017 RODRIGO BEDOLLA M.D. FINAL REPORT ACC# Date Time Exam [id number] Nov 28, 2016 11:09:00 [id number] Knee Complete min 4 views R [id number] Nov 28, 2016 11:09:00 [id number] Knee Complete min 4 views L EXAMINATION: 1. Right knee complete minimum 4 views. 2. Left knee complete minimum 4 views. HISTORY: Bilateral arthroplasties, bilateral knee pain. FINDINGS: AP, lateral, and merchant views of both knees were obtained with a standing alignment view of both knees. Comparison is made to examination March 20, 2013. There is a 2 component right knee arthroplasty in unchanged, near anatomic, position. There is no periprosthetic fracture. There is a trace right knee joint effusion. Heterotopic ossification adjacent to the superior flange of the femoral prosthesis is unchanged. There is a 2 component left knee arthroplasty in unchanged, near anatomic, position. There is no periprosthetic fracture. There is no joint effusion. Standing alignment views demonstrate a left total hip arthroplasty. There is neutral mechanical axis bilaterally. IMPRESSION: 1. Bilateral 2 component knee arthroplasties in near anatomic position with neutral mechanical axis. Requested By: Dictated By: RODRIGO BEDOLLA M.D. on Nov 28 2016 11:20A This document has been electronically signed by: RODRIGO BEDOLLA M.D. on Nov 28 2016 11:20A [id number] us Historical Provider MD BRAGA XR PROCEDURES Final R esult * XR Knee 4+ VW (11/28/2016 11:09 AM FUEL ATTENDANT) Anatomical Region Laterality Modality N/A Radiographic Bessie ging 11/28/2016 11:0 9 AM FUEL ATTENDANT Narrative 11/28/2016 11:20 AM FUEL ATTENDANT RODRIGO BEDOLLA M.D. FINAL REPORT ACC# ??Date Time ??Exam [id number] Nov 28, 2016 11:09:00 [id number] Knee Complete min 4 views R [id number] Nov 28, 2016 11:09:00 [id number] Knee Complete min 4 views L EXAMINATION: ? 1. Right knee complete minimum 4 views. 2. Left knee complete minimum 4 views. HISTORY: ??Bilateral arthroplasties, bilateral knee pain. FINDINGS: ?? AP, lateral, and merchant views of both knees were obtained with a standing alignment view of both knees. Comparison is made to examination March 20, 2013. There is a 2 component right knee arthroplasty in unchanged, near anatomic, position. There is no periprosthetic fracture. There is a trace right knee joint effusion. Heterotopic ossification adjacent to the superior flange of the femoral prosthesis is unchanged. There is a 2 component left knee arthroplasty in unchanged, near anatomic, position. There is no periprosthetic fracture. There is no joint effusion. Standing alignment views demonstrate a left total hip arthroplasty. There is neutral mechanical axis bilaterally. IMPRESSION: ?? 1. Bilateral 2 component knee arthroplasties in near anatomic position with neutral mechanical axis. Requested By: Dictated By: ?? RODRIGO BEDOLLA M.D. ??on Nov?2016 11:20A This document has been electronically signed by: RODRIGO BEDOLLA M.D. on Nov?2016 11:20A [id number] Procedure Note Provider, MD Philly - 03/06/2017 RODRIGO BEDOLLA M.D. FINAL REPORT ACC# Date Time Exam [id number] Nov 28, 2016 11:09:00 [id number] Knee Complete min 4 views R [id number] Nov 28, 2016 11:09:00 32505 Knee Complete min 4 views L EXAMINATION: 1. Right knee complete minimum 4 views. 2. Left knee complete minimum 4 views. HISTORY: Bilateral arthroplasties, bilateral knee pain. FINDINGS: AP, lateral, and merchant views of both knees were obtained with a standing alignment view of both knees. Comparison is made to examination March 20, 2013. There is a 2 component right knee arthroplasty in unchanged, near anatomic, position. There is no periprosthetic fracture. There is a trace right knee joint effusion. Heterotopic ossification adjacent to the superior flange of the femoral prosthesis is unchanged. There is a 2 component left knee arthroplasty in unchanged, near anatomic, position. There is no periprosthetic fracture. There is no joint effusion. Standing alignment views demonstrate a left total hip arthroplasty. There is neutral mechanical axis bilaterally. IMPRESSION: 1. Bilateral 2 component knee arthroplasties in near anatomic position with neutral mechanical axis. Requested By: Dictated By: RODRIGO BEDOLLA M.D. on Nov 28 2016 11:20A This document has been electronically signed by: RODRIGO BEDOLLA M.D. on Nov 28 2016 11:20A [id number] us Historical Provider MD BRAGA XR PROCEDURES Final R esult documented in this encounter Visit Diagnoses Diagnosis Aftercare following joint replacement surgery Presence of both artificial knee joints documented in this encounter Care Teams Chisel Trimmer Relationship Specialty Start Date End Date Michael Hinds MD [address] [facility] [address] [address] PCP - General 07/10/13 12/26/21 documented as of this encounter
--- OUTSIDE RECORDS SUMMARY | 2024-11-01 00:07 | XMS_ITS | Encounter Summary ---
Author Organization [facility] Address [address] [place] [address] Phone Care Team Providers Care Biodiesel Engineering Manager Name Role Phone Michael Hinds MD Primary Care Provider + Encounter Details Date Type Department Care Team (Late st Contact Info) Description 05/05/2018 Orders Only [facility] Orthopaedic Surgery [address] [facility] 2[address] [place] [address] Starr Manley RMA Social History Tobacco Use Types Packs/Day Years Used Date Smoking Tobacco: Former Cigarettes Q uit: 10/28/1991 Alcohol Use Standard Drinks/Week Comments Yes 0 (1 standard drink = 0.6 oz pur e alcohol) Comments Unknown Sex and Gender Information Value Date Recorded Sex Assigned at Not on file Legal Sex Female 2:17 AM ART G[employer]ERY INTERNS[employer]IP Gender Identity Not on file Sexual Orientation Not on file documented as of this encounter Plan of Treatment Not on file documented as of this encounter Visit Diagnoses Not on filedocumented in this encounter Discontinued Medications Medication Sig Discontinue Reason Start Date End Da te atorvastatin (LIPITOR) 20 mg tablet take 1 tablet by oral route every day 06/19/2013 05/05/2018 atorvastatin (LIPITOR) 20 mg tablet take 1 tablet (20MG) by oral route every day 08/13/2012 05/05/2018 celecoxib (CeleBREX) 200 mg capsule Take 2 pills in AM day before surgery, then 1 BID until completed 06/19/2010 05/05/2018 ferrous sulfate 325 mg (65 mg of elemental iron) tabletIndications:Iron Deficiency Anemia 05/05/2018 citalopram (CeleXA) 40 mg tablet 05/05/2018 torsemide (DEMADEX) 10 mg tablet take 1 tablet (10MG) by oral route every day 08/06/2012 05/05/2018 torsemide (DEMADEX) 5 mg tablet 03/17/2018 05/05/2018 risperiDONE (RisperDAL) 0.5 mg tablet 05/05/2018 methotrexate 2.5 mg tablet 05/05/2018 levothyroxine (SYNTHROID, LEVOTHROID) 175 mcg tablet 05/05/2018 oxybutynin XL (DITROPAN-XL) 10 mg 24 hr tablet TK 1 T PO D. 02/16/2018 05/05/[address] (DEPAKOTE) 500 mg EC tablet 05/05/2018 lisinopril (PRINIVIL,ZESTRIL) 30 mg tablet 05/05/2018 documented as of this encounter Historical Medications * This list may reflect changes made after this encounter. multivitamin with minerals tablet DOXYCYCLINE HYCLATE 100 mg capsule 0 03/17/2018 risperiDONE (RisperDAL) 0.5 mg tablet 8 methotrexate 2.5 mg tablet 8 lisinopril (PRINIVIL,ZESTRI L) 30 mg tablet 8 levothyroxine (SYNTHROID, LEVOTHROID) 175 mcg tablet [address] (DEPAKOTE) 500 mg EC tablet 8 citalopram (CeleXA) 40 mg tablet 8 TRAVATAN Z 0.004 % drops 1 02/12/2018 1 torsemide (DEMADEX) 5 mg tablet 3 03/17/2018 8 simvastatin (ZOCOR) 80 mg tablet 1 oxybutynin XL (DITROPAN-XL) 10 mg 24 hr tablet TK 1 T PO D. 12 02/16/2018 01 8 ferrous sulfate 325 mg (65 mg of elemental iron) tabletIndication s:Iron Deficiency Anemia 8 omega 2-sjy-kkx-fish oil 300-1,000 mg capsule 1 cephalexin (KEFLEX) 500 mg capsule 4 times daily. 08/08/2010 1 celecoxib (CeleBREX) 200 mg capsule Take 2 pills in AM day before surgery, then 1 BID until completed 06/19/2010 8 benzonatate (TESSALON) 100 mg capsuleIndicatio ns:Cough TK ONE C PO TID PRF COUGH 0 03/14/2018 1 added in this encounter Care Teams Biodiesel Engineering Manager Relationship Specialty Start Date End Date Michael Hinds MD [address] [address] PCP - General 07/10/13 12/26/21 documented as of this encounter
--- OUTSIDE RECORDS SUMMARY | 2024-11-01 00:07 | XMS_ITS | Encounter Summary ---
Author Organization [facility] Facility Care Team Providers Care Sales Operations Name Role Phone Unavailable Primary Care Provider Unavailabl e Encounter Details Date Type Department Care Team (Latest Contact Info) Description 03/06/2012 1:43 PM CDT - 03/06/2012 11:59 PM CDT [facility] Undiagnosed cardiac murmurs; Mitral valve insufficiency and aortic valve insufficiency; Disease of tricuspid valve Social History Tobacco Use Types Packs/Day Years Used Date Smoking Tobacco: Never Assessed Comments Unknown Sex and Gender Information Value Date Recorded Sex Assigned at Not on file Legal Sex Female 2:17 AM PRESS WORKER HELPER Gender Identity Not on file Sexual Orientation Not on file documented as of this encounter Medications at Time of Discharge celecoxib (CeleBREX) 200 mg capsule Take 2 pills in AM day before surgery, then 1 BID until completed 06/19/2010 8 cephalexin (KEFLEX) 500 mg capsule 4 times daily. 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
--- OUTSIDE RECORDS SUMMARY | 2024-11-01 00:07 | XMS_ITS | Encounter Summary ---
Author Organization [facility] Facility Care Team Providers Care Wire Walker Name Role Phone Unavailable Primary Care Provider Unavailabl e Encounter Details Date Type Department Care Team (Late st Contact Info) Description 08/07/2007 5:13 PM CDT - 08/07/2007 11:59 PM CDT Hospital [facility] Social History Tobacco Use Types Packs/Day Years Used Date Smoking Tobacco: Never Assessed Comments Unknown Sex and Gender Information Value Date Recorded Sex Assigned at Not on file Legal Sex Female 2:17 AM CLOUD SERVICES ARCHITECT Gender Identity Not on file Sexual Orientation Not on file documented as of this encounter Plan of Treatment Not on file documented as of this encounter Visit Diagnoses Not on filedocumented in this encounter
--- OUTSIDE RECORDS SUMMARY | 2024-11-01 00:07 | XMS_ITS | Encounter Summary ---
Author Organization [facility] Facility Care Team Providers Care Material Reclaimer Name Role Phone Unavailable Primary Care Provider Unavailabl e Encounter Details Date Type Department Care Team (Late st Contact Info) Description 08/02/2007 5:28 PM CDT - 08/02/2007 11:59 PM CDT Hospital Encounter [facility] Luiz Flower Social History Tobacco Use Types Packs/Day Years Used Date Smoking Tobacco: Never Assessed Comments Unknown Sex and Gender Information Value Date Recorded Sex Assigned at Not on file Legal Sex Female 2:17 AM GROUP INSURANCE SPECIAL AGENT Gender Identity Not on file Sexual Orientation Not on file documented as of this encounter Plan of Treatment Not on file documented as of this encounter Visit Diagnoses Not on filedocumented in this encounter
--- OUTSIDE RECORDS SUMMARY | 2024-11-01 00:07 | XMS_ITS | Encounter Summary ---
Author Organization [facility] Facility Care Team Providers Care Industrial Machinery Mechanic Name Role Phone Unavailable Primary Care Provider Unavailabl e Encounter Details Date Type Department Care Team (Late st Contact Info) Description 07/11/2010 9:37 AM CDT - 07/11/2010 4:00 PM T Hospital Encounter [facility] Antwon Malik MD [address] [place] [address] Other specified pre-operative examination; Osteoarthrosis involving lower leg; Hypothyroidism; Essential hypertension; Rheumatoid arthritis (HCC); Bipolar affective disorder (HCC); Morbid obesity (HCC); Personal history of tobacco use, presenting hazards to health Social History Tobacco Use Types Packs/Day Years Used Date Smoking Tobacco: Never Assessed Comments Unknown Sex and Gender Information Value Date Recorded Sex Assigned at Not on file Legal Sex Female 2:17 AM INSPECTOR QUALITY ASSURANCE Gender Identity Not on file Sexual Orientation Not on file documented as of this encounter Medications at Time of Discharge celecoxib (CeleBREX) 200 mg capsule Take 2 pills in AM day before surgery, then 1 BID until completed 06/19/2010 8 documented as of this encounter Plan of Treatment Not on file documented as of this encounter Visit Diagnoses Diagnosis Other specified pre-operative examination Osteoarthrosis involving lower leg Hypothyroidism Unspecified hypothyroidism Essential hypertension Unspecified essential hypertension Rheumatoid arthritis (HCC) Bipolar affective disorder (HCC) Bipolar disorder, unspecified Morbid obesity (HCC) Morbid obesity Personal history of tobacco use, presenting hazards to health documented in this encounter
--- OUTSIDE RECORDS SUMMARY | 2024-11-01 00:07 | XMS_ITS | Encounter Summary ---
Author Organization [facility] Care Team Providers Care Tram Operator Name Role Phone India Cardenas MD Primary Care Provider + Encounter Details Date Type Department Care Team (Latest Contact Info) Description 03/13/2015 7:50 AM CDT - 03/13/2015 11:59 PM CDT Hospital Encounter [facility] India Cardenas MD [address] [facility] [address] [place] [address] Pain in joint, shoulder region; Supraspinatus sprain and strain; Accident; Unspecified place of occurrence; Other specified disorders of rotator cuff syndrome of shoulder and allied disorders; Localized osteoarthrosis, shoulder region Social History Tobacco Use Types Packs/Day Years Used Date Smoking Tobacco: Never Assessed Comments Unknown Sex and Gender Information Value Date Recorded Sex Assigned at Not on file Legal Sex Female 2:17 AM INTERNATIONAL SPECIALIST Gender Identity Not on file Sexual Orientation [...] Procedure Name Priority Date/Time Associated Diagnosis Comments MRI UPPER EXTREMITY JOINT WO CONTRAST Routine 03/13/2015 9:14 AM CDT documented in this encounter Results * MRI Upper Extremity Joint WO Contrast (03/13/2015 9:14 AM CDT) Anatomical Region Laterality Modality Upper Extremities N/A Magnetic Reson ance 03/13/2015 9:14 AM CDT Narrative 03/15/2015 7:39 AM CDT EXAMINATION: MRI right shoulder without contrast DATE: 03/13/2015 HISTORY: Shoulder pain. TECHNIQUE: Multiplanar, multisequence MRI examination is performed of the right shoulder without contrast. FINDINGS: There is a type I acromion with a small subacromial spur. ?? Moderate severity acromioclavicular joint osteoarthritis is seen. ?? There are mild changes of glenohumeral joint osteoarthritis. ?? Subchondral cyst formation is seen within the inferior glenoid and there is overlying chondrosis. Examination of the rotator cuff demonstrates moderate to severe supraspinatus tendinopathy. ??There is mild to moderate severity infraspinatus insertional tendinopathy. ??There is focal linear partial thickness undersurface tearing of the supraspinatus tendon. ?? No evidence of full thickness extension. ??No tendon retraction. ??No infraspinatus tear is seen. ??There is mild severity subscapularis insertional tendinopathy. ??No evidence for tear. ??The long head biceps tendon is abnormally thickened with increased signal within the bicipital groove. ??These changes extend into the rotator interval and into the joint space. ??Suspect longitudinal tearing of the tendon. ??No complete rupture seen. There is fluid identified within the subacromion-subdeltoid bursa. ?? Rotator cuff musculature is normal in bulk. ??No evidence for atrophy. ?? There is focal lobulated bright T2 signal near the tip of the coracoid process likely a small ganglion cyst. IMPRESSION: 1. Moderate to severe supraspinatus insertional tendinopathy with linear partial thickness undersurface tearing. 2. Infraspinatus and subscapularis insertional tendinopathy without tear. 3. Long head biceps tendinopathy with partial thickness tearing in the bicipital groove and extending into the joint space. ??No evidence for rupture. 4. Subacromion-subdeltoid bursitis. 5. Acromioclavicular joint and glenohumeral joint osteoarthritis. ESTEFANY/andrea Radiologist: MARY RODGERS M.D. ?? Attending: ??INDIA CARDENAS M.D. Requesting: INDIA CARDENAS M.D. Requesting Fax: ?? Requesting ID: [id number] Attending Fax: ?? Attending ID: ?? [id number] Completed Time: ?? 03/13/2015 09:14 AM Dictated Time: ?03/14/2015 07:19 AM Transcribed Time: 03/14/2015 07:36 AM Signed by: ?MARY RODGERS ??Diana on 03/15/2015 07:39 AM Report To 1 ID: Report To 1 Name: , Report To 1 FAX: Report To 2 ID: Report To 2 Name: , Report To 2 FAX: Report To 3 ID: Report To 3 Name: , Report To 3 FAX: NextGen Order #: Procedure Note Provider, MD [place] - 02/21/2017 EXAMINATION: MRI right shoulder without contrast DATE: 03/13/2015 HISTORY: Shoulder pain. TECHNIQUE: Multiplanar, multisequence MRI examination is performed of the right shoulder without contrast. FINDINGS: There is a type I acromion with a small subacromial spur. Moderate severity acromioclavicular joint osteoarthritis is seen. There are mild changes of glenohumeral joint osteoarthritis. Subchondral cyst formation is seen within the inferior glenoid and there is overlying chondrosis. Examination of the rotator cuff demonstrates moderate to severe supraspinatus tendinopathy. There is mild to moderate severity infraspinatus insertional tendinopathy. There is focal linear partial thickness undersurface tearing of the supraspinatus tendon. No evidence of full thickness extension. No tendon retraction. No infraspinatus tear is seen. There is mild severity subscapularis insertional tendinopathy. No evidence for tear. The long head biceps tendon is abnormally thickened with increased signal within the bicipital groove. These changes extend into the rotator interval and into the joint space. Suspect longitudinal tearing of the tendon. No complete rupture seen. There is fluid identified within the subacromion-subdeltoid bursa. Rotator cuff musculature is normal in bulk. No evidence for atrophy. There is focal lobulated bright T2 signal near the tip of the coracoid process likely a small ganglion cyst. IMPRESSION: 1. Moderate to severe supraspinatus insertional tendinopathy with linear partial thickness undersurface tearing. 2. Infraspinatus and subscapularis insertional tendinopathy without tear. 3. Long head biceps tendinopathy with partial thickness tearing in the bicipital groove and extending into the joint space. No evidence for rupture. 4. Subacromion-subdeltoid bursitis. 5. Acromioclavicular joint and glenohumeral joint osteoarthritis. ESTEFANY/andrea Radiologist: MARY RODGERS M.D. Attending: INDIA CARDENAS M.D. Requesting: INDIA CARDENAS M.D. Requesting Requesting ID: [id number] Attending Attending ID: [id number] Completed Time: 03/13/2015 09:14 AM Dictated Time: 03/14/2015 07:19 AM Transcribed Time: 03/14/2015 07:36 AM Signed by: MARY RODGERS M.D. on 03/15/2015 07:39 AM Report To 1 ID: Report To 1 Name: , Report To 1 FAX: Report To 2 ID: Report To 2 Name: , Report To 2 FAX: Report To 3 ID: Report To 3 Name: , Report To 3 FAX: NextGen Order #: Historical Provider MD BRAGA MRI PROCEDURES Final Result documented in this encounter Visit Diagnoses Diagnosis Pain in joint, shoulder region Supraspinatus sprain and strain Supraspinatus (muscle) (tendon) sprain and strain Accident Unspecified accident Unspecified place of occurrence Other specified disorders of rotator cuff syndrome of shoulder and allied disorders Localized osteoarthrosis, shoulder region Localized osteoarthrosis not specified whether primary or secondary, shoulder region documented in this encounter Care Teams Tram Operator Relationship Specialty Start Date End Date India Cardenas MD [address] [address] PCP - General 07/10/13 12/26/21 documented as of this encounter
--- OUTSIDE RECORDS SUMMARY | 2024-11-01 00:07 | XMS_ITS | Encounter Summary ---
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 Electrical Engineer Name Role Phone Unavailable Primary Care Provider Unavailabl e Encounter Details Date Type Department Care Team (Late st Contact Info) Description 09/04/2010 - 09/04/2010 11:59 PM SAUSAGE STUFFER Hospital Encounter [facility] Antwon Malik MD [address] [facility] [address] [place] [address] Aftercare following joint replacement; Knee joint replaced by other means; Osteoarthrosis involving lower leg Social History Tobacco Use Types Packs/Day Years Used Date Smoking Tobacco: Never Assessed Comments Unknown Sex and Gender Information Value Date Recorded Sex Assigned at Not on file Legal Sex Female 2:17 AM 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
--- OUTSIDE RECORDS SUMMARY | 2024-11-01 00:07 | XMS_ITS | Encounter Summary ---
Author Organization [facility] Care Team Providers Care Guard Chief Name Role Phone Michael Hinds MD Primary Care Provider + Encounter Details Date Type Department Care Team (Latest Contact Info) Description 10/04/2016 1:04 PM PUBLIC HEALTH ANALYST - 10/04/2016 11:[address] 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); Unspecified place or not applicable; Other specified events, undetermined intent, initial encounter Social History Tobacco Use Types Packs/Day Years Used Date Smoking Tobacco: Former Cigarettes Q uit: 10/28/1991 Alcohol Use Standard Drinks/Week Comments Yes 0 (1 standard drink = 0.6 oz pur e alcohol) Comments Unknown Sex and Gender Information Value Date Recorded Sex Assigned at Not on file Legal Sex Female 2:17 AM 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 FINAL REPORT ACC# ??Date Time ??Exam [id number] Oct 04, 2016 13:44:00 [id number] uni & pel if done 2-3VL EXAMINATION: ?Left hip unilateral and pelvis if performed 2-3 views HISTORY: ??Left hip osteoarthritis FINDINGS: ?? Frontal view the pelvis excluding the iliac crests and a crosstable lateral view of the left hip are compared to prior radiographs dated 03/20/2013. A total left hip arthroplasty is in unchanged position with stable asymmetric liner wear involving the superolateral aspect with mild ostial lysis adjacent to the acetabular component. There is no periprosthetic fracture. Heterotopic ossification is noted along the anterolateral aspect of the right hip joint. Mild right hip osteoarthritis is unchanged. IMPRESSION: ?? Unchanged left total hip arthroplasty with asymmetric polyethylene liner wear and mild periacetabular osteolysis. Requested By: JANES GALDAMEZ PA-C Dictated By: ?? GOLDEN ORTA M.D. ??on Sep ??2015 ??1:52P This document has been electronically signed by: GOLDEN ORTA M.D. on Sep ??2015 ??1:52P [id number] Procedure Note Provider, MD [place] - 03/06/2017 GOLDEN ORTA M.D. FINAL REPORT ACC# Date Time Exam [id number] Oct 04, 2016 13:44:00 [id number] uni & pel if done 2-3VL EXAMINATION: Left hip unilateral and pelvis if performed 2-3 views HISTORY: Left hip osteoarthritis FINDINGS: Frontal view the pelvis excluding the iliac crests and a crosstable lateral view of the left hip are compared to prior radiographs dated 03/20/2013. A total left hip arthroplasty is in unchanged position with stable asymmetric liner wear involving the superolateral aspect with mild ostial lysis adjacent to the acetabular component. There is no periprosthetic fracture. Heterotopic ossification is noted along the anterolateral aspect of the right hip joint. Mild right hip osteoarthritis is unchanged. IMPRESSION: Unchanged left total hip arthroplasty with asymmetric polyethylene liner wear and mild periacetabular osteolysis. Requested By: JANES GALDAMEZ PA-C Dictated By: GOLDEN ORTA M.D. on Oct 04 2016 1:52P This document has been electronically signed by: GOLDEN ORTA M.D. 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
--- OUTSIDE RECORDS SUMMARY | 2024-11-01 00:07 | XMS_ITS | Encounter Summary ---
Author Organization [facility] Facility Care Team Providers Care Technician Trainee Name Role Phone Unavailable Primary Care Provider Unavailabl e Encounter Details Date Type Department Care Team (Late st Contact Info) Description 03/20/2013 11:58 AM CDT - 03/20/2013 4:00 PM CDT Hospital Encounter [facility] Anita Malik MD [address] [address] [place] [address] Pain in joint, pelvic region and thigh; Pain in joint, lower leg Social History Tobacco Use Types Packs/Day Years Used Date Smoking Tobacco: Never Assessed Comments Unknown Sex and Gender Information Value Date Recorded Sex Assigned at Not on file 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 Gender Identity Not on file Sexual [...] oral route every day 90 0 08/06/2012 methotrexate 2.5 mg tablet take 7 Tablet (17.5MG) by oral route every week 0 08/06/2012 oxybutynin (DITROPAN) 5 mg tablet take 1 tablet (5MG) by oral route 3 times every day 270 0 08/06/2012 risperiDONE (RisperDAL) 0.5 mg tablet take 1 Tablet (0.5MG) by oral route every bedtime 90 0 08/06/2012 atorvastatin (LIPITOR) 20 mg tablet take 1 tablet (20MG) by oral route every day 30 6 08/13/2012 8 celecoxib (CeleBREX) 200 mg capsule Take 2 pills in AM day before surgery, then 1 BID until completed 06/19/2010 8 cephalexin (KEFLEX) 500 mg capsule 4 times daily. 08/08/2010 1 lisinopril (PRINIVIL,ZESTRI L) 2.5 mg tablet take 1 tablet (2.5MG) by oral route every day 90 0 03/26/2012 1 torsemide (DEMADEX) 10 mg tablet take 1 tablet (10MG) by oral route every day 30 0 08/06/2012 8 documented as of this encounter Plan of Treatment Not on file documented as of this encounter Procedures Procedure Name Priority Date/Time Associated Diagnosis Comments KNEE RADIOGRAPHY, FRONTAL (AP), LATERAL, OBLIQUE Routine 03/20/2013 12:25 PM CDT KNEE RADIOGRAPHY, FRONTAL (AP), LATERAL, OBLIQUE Routine 03/20/2013 12:25 PM CDT XR HIP (RADLINK) 1V Routine 03/20/2013 1 2:25 PM CDT XR PELVIS 1 OR 2 VIEWS Routine 03/20/2013 12:25 PM CDT documented in this encounter Results * KNEE RADIOGRAPHY, FRONTAL (AP), LATERAL, OBLIQUE (03/20/2013 12:25 PM CDT) Anatomical Region Laterality Modality N/A Radiographic Bessie ging 03/20/2013 12:2 5 PM CDT Narrative 03/20/2013 1:00 PM CDT LILLY RAJAN M.D. FINAL REPORT ACC# ??Date Time ??Exam [id number] March 20, 2013 12:25:00 52738 Knee 3 views R [id number] March 20, 2013 12:25:00 24744 Knee 3 views L [id number] March 20, 2013 12:25:00 36444 Hip Unilateral 1 view L [id number] March 20, 2013 12:25:00 88649 Pelvis 1 or 2 views EXAMINATION: ? 1. Left hip unilateral one view. 2. Pelvis 1 or 2 views. 3. Right knee 3 views. 4. Left knee 3 views. HISTORY: ??Hip and knee osteoarthritis FINDINGS: ?? AP view of the pelvis and, and a crosstable lateral view of the left hip are submitted for interpretation with comparison to radiographs from September 05, 2012. A left total hip arthroplasty is present with unchanged asymmetric liner wear superolaterally with a small osteolysis lesion within the acetabular roof. No periprosthetic fractures. Heterotopic ossification is again noted at the anterior lateral aspect of the left hip joint. There is unchanged mild right hip joint osteoarthritis. AP, lateral, and merchant views of both knees are submitted for interpretation with comparison to radiographs from April 02, 2011. Bilateral two-component knee arthroplasties are in near anatomic alignment without evidence of hardware failure or loosening. There are no periprosthetic fractures seen. No knee joint effusions are present. Soft tissues are normal. IMPRESSION: ?? 1. Left total hip arthroplasty with unchanged asymmetric polyethylene liner wear and unchanged periacetabular osteolysis. 2. Unchanged mild right hip joint osteoarthritis. 3. Bilateral two-component knee arthroplasties are in near anatomic alignment. Requested By: ANITA MEADOWS M.D. Dictated By: ?? LILLY RAJAN M.D. ??on Mar 20 2013 ??1:00P This document has been electronically signed by: LILLY RAJAN M.D. on Mar 20 2013 ??1:00P Procedure Note Provider, MD [place] - 02/21/2017 LILLY RAJAN M.D. FINAL REPORT ACC# Date Time Exam [id number] March 20, 2013 12:25:00 40948 Knee 3 views R [id number] March 20, 2013 12:25:00 44405 Knee 3 views L [id number] March 20, 2013 12:25:00 81063 Hip Unilateral 1 view L [id number] March 20, 2013 12:25:00 [id number] Pelvis 1 or 2 views EXAMINATION: 1. Left hip unilateral one view. 2. Pelvis 1 or 2 views. 3. Right knee 3 views. 4. Left knee 3 views. HISTORY: Hip and knee osteoarthritis FINDINGS: AP view of the pelvis and, and a crosstable lateral view of the left hip are submitted for interpretation with comparison to radiographs from September 05, 2012. A left total hip arthroplasty is present with unchanged asymmetric liner wear superolaterally with a small osteolysis lesion within the acetabular roof. No periprosthetic fractures. Heterotopic ossification is again noted at the anterior lateral aspect of the left hip joint. There is unchanged mild right hip joint osteoarthritis. AP, lateral, and merchant views of both knees are submitted for interpretation with comparison to radiographs from April 02, 2011. Bilateral two-component knee arthroplasties are in near anatomic alignment without evidence of hardware failure or loosening. There are no periprosthetic fractures seen. No knee joint effusions are present. Soft tissues are normal. IMPRESSION: 1. Left total hip arthroplasty with unchanged asymmetric polyethylene liner wear and unchanged periacetabular osteolysis. 2. Unchanged mild right hip joint osteoarthritis. 3. Bilateral two-component knee arthroplasties are in near anatomic alignment. Requested By: ANITA MEADOWS M.D. Dictated By: LLILY RAJAN M.D. on Mar 20 2013 1:00P This document has been electronically signed by: LILLY RAJAN M.D. on Mar 20 2013 1:00P us Historical Provider MD BRAGA XR PROCEDURES Final R esult * KNEE RADIOGRAPHY, FRONTAL (AP), LATERAL, OBLIQUE (03/20/2013 12:25 PM CDT) Anatomical Region Laterality Modality N/A Radiographic Bessie ging 03/20/2013 12:2 5 PM CDT Narrative 03/20/2013 1:00 PM CDT LILLY RAJAN M.D. FINAL REPORT ACC# ??Date Time ??Exam [id number] March 20, 2013 12:25:00 07106 Knee 3 views R [id number] March 20, 2013 12:25:00 11045 Knee 3 views L [id number] March 20, 2013 12:25:00 91059 Hip Unilateral 1 view L [id number] March 20, 2013 12:25:00 14598 Pelvis 1 or 2 views EXAMINATION: ? 1. Left hip unilateral one view. 2. Pelvis 1 or 2 views. 3. Right knee 3 views. 4. Left knee 3 views. HISTORY: ??Hip and knee osteoarthritis FINDINGS: ?? AP view of the pelvis and, and a crosstable lateral view of the left hip are submitted for interpretation with comparison to radiographs from September 05, 2012. A left total hip arthroplasty is present with unchanged asymmetric liner wear superolaterally with a small osteolysis lesion within the acetabular roof. No periprosthetic fractures. Heterotopic ossification is again noted at the anterior lateral aspect of the left hip joint. There is unchanged mild right hip joint osteoarthritis. AP, lateral, and merchant views of both knees are submitted for interpretation with comparison to radiographs from April 02, 2011. Bilateral two-component knee arthroplasties are in near anatomic alignment without evidence of hardware failure or loosening. There are no periprosthetic fractures seen. No knee joint effusions are present. Soft tissues are normal. IMPRESSION: ?? 1. Left total hip arthroplasty with unchanged asymmetric polyethylene liner wear and unchanged periacetabular osteolysis. 2. Unchanged mild right hip joint osteoarthritis. 3. Bilateral two-component knee arthroplasties are in near anatomic alignment. Requested By: ANITA MEADOWS M.D. Dictated By: ?? LILLY RAJAN M.D. ??on Mar 20 2013 ??1:00P This document has been electronically signed by: LILLY RAJAN M.D. on Mar 20 2013 ??1:00P Procedure Note Provider, MD [place] - 02/21/2017 LILLY RAJAN M.D. FINAL REPORT ACC# Date Time Exam [id number] March 20, 2013 12:25:00 56425 Knee 3 views R [id number] March 20, 2013 12:25:00 71998 Knee 3 views L [id number] March 20, 2013 12:25:00 43650 Hip Unilateral 1 view L [id number] March 20, 2013 12:25:00 12649 Pelvis 1 or 2 views EXAMINATION: 1. Left hip unilateral one view. 2. Pelvis 1 or 2 views. 3. Right knee 3 views. 4. Left knee 3 views. HISTORY: Hip and knee osteoarthritis FINDINGS: AP view of the pelvis and, and a crosstable lateral view of the left hip are submitted for interpretation with comparison to radiographs from September 05, 2012. A left total hip arthroplasty is present with unchanged asymmetric liner wear superolaterally with a small osteolysis lesion within the acetabular roof. No periprosthetic fractures. Heterotopic ossification is again noted at the anterior lateral aspect of the left hip joint. There is unchanged mild right hip joint osteoarthritis. AP, lateral, and merchant views of both knees are submitted for interpretation with comparison to radiographs from April 02, 2011. Bilateral two-component knee arthroplasties are in near anatomic alignment without evidence of hardware failure or loosening. There are no periprosthetic fractures seen. No knee joint effusions are present. Soft tissues are normal. IMPRESSION: 1. Left total hip arthroplasty with unchanged asymmetric polyethylene liner wear and unchanged periacetabular osteolysis. 2. Unchanged mild right hip joint osteoarthritis. 3. Bilateral two-component knee arthroplasties are in near anatomic alignment. Requested By: ANITA MEADOWS M.D. Dictated By: LILLY RAJAN M.D. on Mar 20 2013 1:00P This document has been electronically signed by: LILLY RAJAN M.D. on Mar 20 2013 1:00P us Historical Provider MD BRAGA XR PROCEDURES Final R esult * XR Hip (Radlink) 1 View (03/20/2013 12:25 PM CDT) Anatomical Region Laterality Modality Lower Extremities, Hip, Pelvis N/A R adiographic Imaging 03/20/2013 12:2 5 PM CDT Narrative 03/20/2013 1:00 PM CDT LILLY SATINDER, M.D. FINAL REPORT ACC# ??Date Time ??Exam [id number] March 20, 2013 12:25:00 61903 Knee 3 views R [id number] March 20, 2013 12:25:00 76718 Knee 3 views L [id number] March 20, 2013 12:25:00 35033 Hip Unilateral 1 view L [id number] March 20, 2013 12:25:00 21875 Pelvis 1 or 2 views EXAMINATION: ? 1. Left hip unilateral one view. 2. Pelvis 1 or 2 views. 3. Right knee 3 views. 4. Left knee 3 views. HISTORY: ??Hip and knee osteoarthritis FINDINGS: ?? AP view of the pelvis and, and a crosstable lateral view of the left hip are submitted for interpretation with comparison to radiographs from September 05, 2012. A left total hip arthroplasty is present with unchanged asymmetric liner wear superolaterally with a small osteolysis lesion within the acetabular roof. No periprosthetic fractures. Heterotopic ossification is again noted at the anterior lateral aspect of the left hip joint. There is unchanged mild right hip joint osteoarthritis. AP, lateral, and merchant views of both knees are submitted for interpretation with comparison to radiographs from April 02, 2011. Bilateral two-component knee arthroplasties are in near anatomic alignment without evidence of hardware failure or loosening. There are no periprosthetic fractures seen. No knee joint effusions are present. Soft tissues are normal. IMPRESSION: ?? 1. Left total hip arthroplasty with unchanged asymmetric polyethylene liner wear and unchanged periacetabular osteolysis. 2. Unchanged mild right hip joint osteoarthritis. 3. Bilateral two-component knee arthroplasties are in near anatomic alignment. Requested By: ANITA MEADOWS M.D. Dictated By: ?? LILLY RAJAN M.D. ??on Mar 20 2013 ??1:00P This document has been electronically signed by: LILLY RAJAN M.D. on Mar 20 2013 ??1:00P Procedure Note Provider, MD [place] - 02/21/2017 LILLY RAJAN M.D. FINAL REPORT ACC# Date Time Exam [id number] March 20, 2013 12:25:00 40381 Knee 3 views R [id number] March 20, 2013 12:25:00 99031 Knee 3 views L [id number] March 20, 2013 12:25:00 68389 Hip Unilateral 1 view L [id number] March 20, 2013 12:25:00 31829 Pelvis 1 or 2 views EXAMINATION: 1. Left hip unilateral one view. 2. Pelvis 1 or 2 views. 3. Right knee 3 views. 4. Left knee 3 views. HISTORY: Hip and knee osteoarthritis FINDINGS: AP view of the pelvis and, and a crosstable lateral view of the left hip are submitted for interpretation with comparison to radiographs from September 05, 2012. A left total hip arthroplasty is present with unchanged asymmetric liner wear superolaterally with a small osteolysis lesion within the acetabular roof. No periprosthetic fractures. Heterotopic ossification is again noted at the anterior lateral aspect of the left hip joint. There is unchanged mild right hip joint osteoarthritis. AP, lateral, and merchant views of both knees are submitted for interpretation with comparison to radiographs from April 02, 2011. Bilateral two-component knee arthroplasties are in near anatomic alignment without evidence of hardware failure or loosening. There are no periprosthetic fractures seen. No knee joint effusions are present. Soft tissues are normal. IMPRESSION: 1. Left total hip arthroplasty with unchanged asymmetric polyethylene liner wear and unchanged periacetabular osteolysis. 2. Unchanged mild right hip joint osteoarthritis. 3. Bilateral two-component knee arthroplasties are in near anatomic alignment. Requested By: ANITA MEADOWS M.D. Dictated By: LILLY RAJAN M.D. on Mar 20 2013 1:00P This document has been electronically signed by: LILLY RAJAN M.D. on Mar 20 2013 1:00P us Historical Provider MD BRAGA XR PROCEDURES Final R esult * XR Pelvis (RadLink) 1 View (03/20/2013 12:25 PM CDT) Anatomical Region Laterality Modality Body, Pelvis N/A Radiographic Bessie ging 03/20/2013 12:2 5 PM CDT Narrative 03/20/2013 1:00 PM CDT LILLY RAJAN M.D. FINAL REPORT ACC# ??Date Time ??Exam [id number] March 20, 2013 12:25:00 53600 Knee 3 views R [id number] March 20, 2013 12:25:00 08871 Knee 3 views L [id number] March 20, 2013 12:25:00 86764 Hip Unilateral 1 view L [id number] March 20, 2013 12:25:00 49502 Pelvis 1 or 2 views EXAMINATION: ? 1. Left hip unilateral one view. 2. Pelvis 1 or 2 views. 3. Right knee 3 views. 4. Left knee 3 views. HISTORY: ??Hip and knee osteoarthritis FINDINGS: ?? AP view of the pelvis and, and a crosstable lateral view of the left hip are submitted for interpretation with comparison to radiographs from September 05, 2012. A left total hip arthroplasty is present with unchanged asymmetric liner wear superolaterally with a small osteolysis lesion within the acetabular roof. No periprosthetic fractures. Heterotopic ossification is again noted at the anterior lateral aspect of the left hip joint. There is unchanged mild right hip joint osteoarthritis. AP, lateral, and merchant views of both knees are submitted for interpretation with comparison to radiographs from April 02, 2011. Bilateral two-component knee arthroplasties are in near anatomic alignment without evidence of hardware failure or loosening. There are no periprosthetic fractures seen. No knee joint effusions are present. Soft tissues are normal. IMPRESSION: ?? 1. Left total hip arthroplasty with unchanged asymmetric polyethylene liner wear and unchanged periacetabular osteolysis. 2. Unchanged mild right hip joint osteoarthritis. 3. Bilateral two-component knee arthroplasties are in near anatomic alignment. Requested By: ANITA MEADOWS M.D. Dictated By: ?? LILLY RAJAN M.D. ??on Mar 20 2013 ??1:00P This document has been electronically signed by: LILLY RAJAN M.D. on Mar 20 2013 ??1:00P Procedure Note Provider, MD [place] - 02/21/2017 LILLY RAJAN M.D. FINAL REPORT ACC# Date Time Exam [id number] March 20, 2013 12:25:00 80852 Knee 3 views R [id number] March 20, 2013 12:25:00 40753 Knee 3 views L [id number] March 20, 2013 12:25:00 16810 Hip Unilateral 1 view L [id number] March 20, 2013 12:25:00 97721 Pelvis 1 or 2 views EXAMINATION: 1. Left hip unilateral one view. 2. Pelvis 1 or 2 views. 3. Right knee 3 views. 4. Left knee 3 views. HISTORY: Hip and knee osteoarthritis FINDINGS: AP view of the pelvis and, and a crosstable lateral view of the left hip are submitted for interpretation with comparison to radiographs from September 05, 2012. A left total hip arthroplasty is present with unchanged asymmetric liner wear superolaterally with a small osteolysis lesion within the acetabular roof. No periprosthetic fractures. Heterotopic ossification is again noted at the anterior lateral aspect of the left hip joint. There is unchanged mild right hip joint osteoarthritis. AP, lateral, and merchant views of both knees are submitted for interpretation with comparison to radiographs from April 02, 2011. Bilateral two-component knee arthroplasties are in near anatomic alignment without evidence of hardware failure or loosening. There are no periprosthetic fractures seen. No knee joint effusions are present. Soft tissues are normal. IMPRESSION: 1. Left total hip arthroplasty with unchanged asymmetric polyethylene liner wear and unchanged periacetabular osteolysis. 2. Unchanged mild right hip joint osteoarthritis. 3. Bilateral two-component knee arthroplasties are in near anatomic alignment. Requested By: ANITA MEADOWS M.D. Dictated By: LILLY RAJAN M.D. on Mar 20 2013 1:00P This document has been electronically signed by: LILLY RAJAN M.D. on Mar 20 2013 1:00P us Historical Provider MD BRAGA XR PROCEDURES Final R esult documented in this encounter Visit Diagnoses Diagnosis Pain in joint, pelvic region and thigh Pain in joint, lower leg documented in this encounter
--- OUTSIDE RECORDS SUMMARY | 2024-11-01 00:07 | XMS_ITS | Encounter Summary ---
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
--- OUTSIDE RECORDS SUMMARY | 2024-11-01 00:07 | XMS_ITS | Encounter Summary ---
Author Organization [facility] Facility Care Team Providers Care Development Technician Name Role Phone Unavailable Primary Care Provider Unavailabl e Encounter Details Date Type Department Care Team (Late st Contact Info) Description 03/21/2007 - 03/21/2007 11:59 PM CDT Hospital Encounter [facility] Antwon Malik MD [address] [place] [address] Social History Tobacco Use Types Packs/Day Years Used Date Smoking Tobacco: Never Assessed Comments Unknown Sex and Gender Information Value Date Recorded Sex Assigned at Not on file Legal Sex Female 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
--- OUTSIDE RECORDS SUMMARY | 2024-11-01 00:07 | XMS_ITS | Encounter Summary ---
Author Organization [facility] Care Team Providers Care Roll Forming Machine Operator Name Role Phone Unavailable Primary Care Provider Unavailabl e Encounter Details Date Type Department Care Team (Late st Contact Info) Description 10/03/2007 11:34 AM LEGAL ADMINISTRATIVE ASSISTANT - 10/03/2007 11:59 PM LEGAL ADMINISTRATIVE ASSISTANT Hospital Encounter [facility] Luiz Flower Social History Tobacco Use Types Packs/Day Years Used Date Smoking Tobacco: Never Assessed Comments Unknown Sex and Gender Information Value Date Recorded Sex Assigned at Not on file Legal Sex Female 2:17 AM LEGAL ADMINISTRATIVE ASSISTANT Gender Identity Not on file Sexual Orientation Not on file documented as of this encounter Plan of Treatment Not on file documented as of this encounter Visit Diagnoses Not on filedocumented in this encounter
--- OUTSIDE RECORDS SUMMARY | 2024-11-01 00:07 | XMS_ITS | Encounter Summary ---
Author Organization [facility] Facility Care Team Providers Care Supervisor/Port Director Name Role Phone Unavailable Primary Care Provider Unavailabl e Encounter Details Date Type Department Care Team (Latest Contact Info) Description 07/25/2010 5:46 AM CDT - 07/27/2010 3:41 PM CDT Hospital Encounter [facility] Antwon Malik MD [address] [place] [address] Localized osteoarthrosis, lower leg; Body mass index 40 and over, adult; Morbid obesity (HCC); Mitral valve insufficiency and aortic valve insufficiency; Rheumatoid arthritis (HCC); History of hip joint replacement by other means; Bipolar affective disorder (HCC); Hypothyroidism; Essential hypertension; Acquired absence of both cervix and uterus; Personal history of tobacco use, presenting hazards to health Social History Tobacco Use Types Packs/Day Years Used Date Smoking Tobacco: Never Assessed Comments Unknown Sex and Gender Information Value Date Recorded Sex Assigned at Not on file Legal Sex Female 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 Gender Identity Not on file Sexual Orientation Not on file documented as of this encounter Medications at Time of Discharge celecoxib (CeleBREX) 200 mg capsule Take 2 pills in AM day before surgery, then 1 BID until completed 06/19/2010 8 documented as of this encounter Plan of Treatment Not on file documented as of this encounter Visit Diagnoses Diagnosis Localized osteoarthrosis, lower leg Localized osteoarthrosis not specified whether primary or secondary, lower leg Body mass index 40 and over, adult Morbid obesity (HCC) Morbid obesity Mitral valve insufficiency and aortic valve insufficiency Rheumatoid arthritis (HCC) History of hip joint replacement by other means Bipolar affective disorder (HCC) Bipolar disorder, unspecified Hypothyroidism Unspecified hypothyroidism Essential hypertension Unspecified essential hypertension Acquired absence of both cervix and uterus Personal history of tobacco use, presenting hazards to health documented in this encounter
--- OUTSIDE RECORDS SUMMARY | 2024-11-01 00:07 | XMS_ITS | Encounter Summary ---
Author Organization [facility] Facility Care Team Providers Care Retail Pharmacy Manager Name Role Phone Unavailable Primary Care Provider Unavailabl e Encounter Details Date Type Department Care Team (Late st Contact Info) Description 09/22/2012 - 09/22/2012 11:59 PM REHABILITATION THERAPY TECHNICIAN Hospital Encounter [facility] Pelon Garcia MD [address] [place] [address] Localized osteoarthrosis, pelvic region and thigh Social History Tobacco Use Types Packs/Day Years Used Date Smoking Tobacco: Never Assessed Comments Unknown Sex and Gender Information Value Date Recorded Sex Assigned at Not on file Legal Sex Female 2:17 AM REHABILITATION THERAPY TECHNICIAN Gender Identity Not on file Sexual Orientation [...] this encounter Visit Diagnoses Diagnosis Localized osteoarthrosis, pelvic region and thigh documented in this encounter
--- OUTSIDE RECORDS SUMMARY | 2024-11-01 00:07 | XMS_ITS | Encounter Summary ---
Author Organization [facility] Facility Care Team Providers Care Gag Writer Name Role Phone Unavailable Primary Care Provider Unavailabl e Encounter Details Date Type Department Care Team (Late st Contact Info) Description 12/05/2007 10:57 AM PATROL MOTHER - 12/05/2007 11:59 PM PATROL MOTHER Hospital Encounter [facility] [place] [address] [address] [place] [id number] Social History Tobacco Use Types Packs/Day Years Used Date Smoking Tobacco: Never Assessed Comments Unknown Sex and Gender Information Value Date Recorded Sex Assigned at Not on file Legal Sex Female 2:17 AM PATROL MOTHER Gender Identity Not on file Sexual Orientation Not on file documented as of this encounter Plan of Treatment Not on file documented as of this encounter Visit Diagnoses Not on filedocumented in this encounter
--- OUTSIDE RECORDS SUMMARY | 2024-11-01 00:07 | XMS_ITS | Encounter Summary ---
Author Organization [facility] Facility Care Team Providers Care Merchant Patroller Name Role Phone Unavailable Primary Care Provider Unavailabl e Encounter Details Date Type Department Care Team (Late st Contact Info) Description 04/02/2011 - 04/02/2011 11:59 PM CDT Hospital Encounter [facility] Antwon Malik MD [address] [place] [address] Generalized pain; History of hip joint replacement by other means; Knee joint replaced by other means Social History Tobacco Use Types Packs/Day Years Used Date Smoking Tobacco: Never Assessed Comments Unknown Sex and Gender Information Value Date Recorded Sex Assigned at Not on file Legal 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
--- OUTSIDE RECORDS SUMMARY | 2024-11-01 00:07 | XMS_ITS | Encounter Summary ---
Author Organization [facility] Facility Care Team Providers Care Slitter And Rewinder Machine Operator Name Role Phone Unavailable Primary Care Provider Unavailabl e Encounter Details Date Type Department Care Team (Late st Contact Info) Description 09/05/2012 1:01 PM ADULT PROTECTIVE CASEWORKER - 09/05/2012 4:00 PM [facility] Hospital Encounter [facility] CLINTila Woodruff, TALLOW REFINER [address] [place] [address] Pain in joint, pelvic region and thigh; Localized osteoarthrosis, pelvic region and thigh; Noemi-prosthetic osteolysis (CMS/HCC) (HCC); 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[facility]); History of hip joint replacement by other means Social History Tobacco Use Types Packs/Day Years Used Date Smoking Tobacco: Never Assessed Comments Unknown Sex and Gender Information Value Date Recorded Sex Assigned at Not on file Legal Sex Female 2:17 AM [facility] Gender Identity Not on file Sexual Orientation [...] Pain in joint, pelvic region and thigh Localized osteoarthrosis, 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
== END 2024-10-24 15:44 | disposition home or self-care (01) ==
PROVIDERS: Emergency Provider Nurse Practitioner
DX: U07.1 COVID-19 (principal); Z87.891 Personal history of nicotine dependence; I10 Essential (primary) hypertension; E78.00 Pure hypercholesterolemia, unspecified; E03.9 Hypothyroidism, unspecified; M06.9 Rheumatoid arthritis, unspecified; Z96.653 Presence of artificial knee joint, bilateral; Z96.642 Presence of left artificial hip joint; F31.9 Bipolar disorder, unspecified
CPT/HCPCS: 87426; 87804; 99212; G0463